=== PATIENT | male | born 1940 | race Caucasian/White ===

== ENCOUNTER → 2018-02-03 10:09 | Outpatient (CLI) | payer MEDICARE, SELFPAY ==
--- NOTE | 2018-02-03 10:17 | US_ITS ---
STUDY: ABDOMINAL ULTRASOUND REASON FOR EXAM: Male, 77 years old. Intermittent nausea, vomiting, cramping with generalized abdominal pain TECHNIQUE: Transabdominal ultrasound was performed with real-time and static dudley scale imaging. TECHNICAL QUALITY: Adequate. COMPARISON: None. FINDINGS: Liver: The liver measures 15.3 cm. There is normal echogenicity of the liver. The bile ducts are within normal limits. There is hepatic color flow. The direction of portal flow is hepatopetal. There is no demonstrated mass lesion. Portal vein measurement: Gallbladder: Normal distended gallbladder. The gallbladder wall measures 2.2 mm. There is a negative sonographic Hayes's sign. There is no pericholecystic fluid. There are no gallstones. Common Bile Duct (C.B.D.): The common bile duct measures 4.2 mm. Pancreas: There is normal echogenicity of the pancreas. There is no demonstrated pancreatic mass or cyst. Spleen: Normal size of the spleen. The spleen measures 9.8 cm. There are granulomas calcifications of the spleen. Right Kidney: Normal size of the right kidney. The right kidney measures 9.5 cm. Normal renal cortex. The right cortex measures 1.9 cm. There is no demonstrated renal mass or cyst. There is no right hydronephrosis. Left Kidney: Normal size of the left kidney. The left kidney measures 10.2 cm. Normal renal cortex. The left cortex measures 1.3 cm. There is no demonstrated renal mass or cyst. There is no left hydronephrosis. Aorta: Mild atherosclerosis. No evidence of aneurysm. I.V.C.: The IVC is patent. There is no ascites. US/Abdomen Complete IMPRESSION: Normal abdominal ultrasound examination. Electronically Signed: Palomo Marley MD at 16:21 EST , Service support ,
--- OUTSIDE RECORDS SUMMARY | 2018-03-22 00:53 | XMS RPT_ITS | Continuity of Care Document ---
:1940 Author Organization [facility] Address [address] [place] [address] Phone Care Team Providers Name Role Phone Fanta Gordon CNP Unavailable Jamar Cho Unavailable Dr. Artemio Juarez Unavailable Dr. Danial Smalls Unavailable Farzana Lu Unavailable Unavailable Renetta Jimenez LPN Unavailable Unavailable Unavailable Unavailable Problems Name Dates Details Afib (I48.91, 427.31) Comments: Continue Xarelto 20 mg and TOprol XL 25 mg Qd. Denies blood in stools black stools bleeding or bruising.Rate controlled.CArdiology :Irene galeas.Status postcardiac ablation in 2014. On Xarelto 20 mg at bedtime and metoprolol 25 mg once a day Status: Active B12 deficiency (E53.8, 266.2) Status: Active BMI 28.0-28.9,adult (Z68.28, V85.24) Status: Active BMI 29.0-29.9,adult (Z68.29, V85.25) Status: Active Colon polyps (K63.5, 211.3) Comments: colonscopy , Hyperplastci polyp, tubular adenomaGetting records, Status: Active COPD (chronic obstructive pulmonary disease) (J44.9, 496) Comments: Overnight pulse oximetry:Desaturation <88% was for 1:44.Pt does not need oxygen 2 litres.(Spoke to Dr Cho)Spirometry : Moderate airway obstructionWil do PFT and see Dr choSpirometry done on and 6min walk, normalsmoke one and a half packs per day for 30 years quit in 1989.Some SOB on stairs, cough, phlegm yellow thickDenies wheeze Status: Active Current nonsmoker (Z78.9, V49.89) Status: Active Depression (F32.9, 311) Comments: Zoloft 50 mg QdPHQ 9: 9( 03/23/16)denies sadness.Sleeping well ,wakes 2 times the middle of the night to go to the bathroom Status: Active Encounter for screening for lipid disorder (Z13.220, V77.91) Status: Active Encounter for screening for malignant neoplasm of prostate (Renamed from Screening for prostate cancer) (Z12.5, V76.44) Status: Active Encounter for screening for other suspected endocrine disorder (Z13.29, V77.99) Status: Active Family history of Alzheimer's disease (Z82.0, V17.2) Status: Active Family history of colon cancer (Z80.0, V16.0) Comments: Patient's brother of metastatis colorectal cancer at the age of 71. Was diagnosed with colon cancer at age 68.Colonoscopy according to John Sosa ([facility]) notes was in [address] Freddy siddiqi was recommended to get five-year colonoscopy.Colonscopy 07/01/15, hyperplastic polyp, tubular a adenoma, will get records to see when he needs repeat Status: Active GERD (gastroesophageal reflux disease) (K21.9, 530.81) Comments: continue Prevacid 30 mg once a day. 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) Comments: Right hip replaced in November 2014.Left hip replaced years ago currently stable Status: Active Hypercholesteremia (E78.00, 272.0) Status: Active Hypertension (I10, 401.9) Status: Active Insomnia (G47.00, 780.52) Comments: per office note from Dr Sosa Status: Active Need for Tdap vaccination (Renamed from Need for ivyaigtysf-unejapi-hrdvkkifi (Tdap) vaccine, adult/adolescent) (Z23, V06.1) Status: Active Nocturia (R35.1, 788.43) Comments: Patient has to wake up twice in the middle of the night to go to the bathroom.Denies frequency, urgency, hesitancy, burning Status: Active KALYAN on CPAP (G47.33, 327.23) Comments: Reviewed the rsults from [facility] on 07/05 Moderate KALYAN which was exacerbated to a severe degree during REM sleep.Respiratory events were associated with significant oxygen desaturations (jasmina 82%) on ro om air. Done at [facility].Non compliant with CPAP mask Status: Active Polycythemia (D75.1, 238.4) Comments: hmg on 06-21 is 16.9[address] note [address] Dr Sosa 07.05.2014 Hb 18.2, repeat 16.8(04/08) Status: Active Prediabetes (R73.03, 790.29) Comments: HBA1C 5.8Extensively counselled on Diet and exercuise Status: Active Skin cancer (C44.90, 173.90) Comments: h/o ?squamous cell cancer of scalp excised 2-3 years agoNeed follow up with derm.Refer to Danial stevens Status: Active URTI (acute upper respiratory infection) (J06.9, 465.9) Comments: Spirometry: moderate airway obstructionGet PFT7 days: scraty throat, PNDsevere laryngitis.Congestion , yellowish nasal draiangeCouigh yellow pjlegm.Wosre for the last few daysCough with blood in phlegm and nasla draiange. Status: Active Vertigo (R42, 780.4) Comments: stable, last used meclizine 1 year ago. Status: Active Vitamin D deficiency (E55.9, 268.9) Status: Active Well Male Exam (V70.0) (Renamed from Well Male physical medicare and non medicare) (Z00.00, V70.0) Comments: Reviewed all the records and labs from Dr. Ritesh Boyle(PCP) office 07/05/2014..PSA 0.9, TSH 0.656, vitamin D 48.3, vitamin B12 339.HBA1C:5.8(prediabetes)Lipid panel:LDL 100 UA negativeEKG NSR, no acu te ST t wave changees Mini-Mental status exam 30 x 30. Patient has deep UA living will. Currently drives. Denies falls but has rugs in the house and was counseled to avoid drugs to prevent falls. Co unseled extensively on diet and exercise to lose weight. Received pneumonia shot in 2014 while admitted in the hospita. Flu shot in 2014.We will do colonoscopy with Dr. juarez. Had shingles 10 years ago. Patient was advised to get shingles vaccine reveiwed with patient all annual medicare questions. immunizations reviewed. went through family social and medical history. Status: Active Medications Name Dates Details cpap Active chin strap, use a night Comments: [facility] -- not sure who manages it Lisinopril 30 MG Oral Tablet 1 (one) Tablet qd for 90 days Quantity: 90 {Tablet} Refills: 3 Ordered:07-Oct-2017 Fanta Gordon CNP, CNP Vivienne Start : 07-Oct-2017 Active Prevacid 30 MG Oral Capsule Delayed Release 1 (one) Capsule DR bid for 0 days Quantity: 180 {Capsule} Refills: 1 Ordered:01-Apr-2017 Fanta Gordon CNP, CNP Vivienne Start : 01-Apr-2017 Active Qvar 80 MCG/ACT Inhalation Aerosol Solution 1 (one) Aerosol Soln bid for 90 days Quantity: 3 {Each} Refills: 1 Ordered:13-Oct-2017 Fanta Gordon CNP, CNP Vivienne Start : 13-Oct-2017 Active Ramipril 5 MG Oral Capsule 1 (one) Capsule qd for 0 days Quantity: 30 {Capsule} Refills: 0 Ordered:27-Dec-2017 Fanta Gordon CNP, CNP Vivienne Start : 27-Dec-2017 End : 16-Sep-2015 Active Toprol XL 25 MG Oral Tablet Extended Release 24 Hour 1 (one) Tablet ER 24HR qd, hold for P<45 for 0 days Quantity: 90 {Tablet} Refills: 3 Ordered:01-Apr-2017 Fanta Gordon CNP, CNP Vivienne Start : 01-Apr-2017 Active Ventolin HFA 108 (90 Base) MCG/ACT Inhalation Aerosol Solution 1 (one) Aerosol Soln Aerosol Soln q4h prn for cough, sob, wheeze for 0 days Quantity: 3 {Each} Refills: 1 Ordered:16-Mar-2016 Hardeep Clark MD Start : 16-Mar-2016 Active Vitamin D3 2000 UNIT Oral Capsule 1 (one) Capsule daily for 0 days Quantity: 30 {Capsule} Refills: 0 Ordered:21-Oct-2017 Evan MORRISON, Fanta Hernandez CNP, Fanta Zayas Start : 21-Oct-2017 Active Xarelto 20 MG Oral Tablet 1 (one) Tablet qd with evening meal for 0 days Quantity: 90 {Tablet} Refills: 3 Ordered:01-Apr-2017 Evan MORRISON, Fanta Hernandez CNP, Fanta Zayas Start : 01-Apr-2017 Active Comments:on for about 1 year. Went in for hip surgery and discovered have AFib Zocor 40 MG Oral Tablet 1 (one) Tablet qhs for 0 days Quantity: 90 {Tablet} Refills: 3 Ordered:01-Apr-2017 vEan MORRISON, Fanta Hernandez CNP, Fanta Zayas Start : 01-Apr-2017 Active Zoloft 50 MG Oral Tablet 1 (one) Tablet qd for 30 days Quantity: 30 {Tablet} Refills: 3 Ordered:28-Nov-2017 Evan MORRISON, Fanta Hernandez CNP, Fanta Zayas Start : 28-Nov-2017 Active Altace 5 MG Oral Capsule 1 (one) Capsule qd for 90 days Quantity: 90 {Capsule} Refills: 0 Ordered:26-Sep-2017 Evan MORRISON, Fanta Hernandez CNP, Fanta Zayas Start : 26-Sep-2017 End : 25-Dec-2017 Inactive Comments:need appt for further refills (after this) Levaquin 500 MG Oral Tablet 1 (one) Tablet daily for 10 days Quantity: 10 {Tablet} Refills: 0 Ordered:23-Mar-2016 Hardeep Clark MD Start : 23-Mar-2016 End : 02-Apr-2016 Inactive Meclizine HCl 25 MG Oral Tablet 1 (one) Tablet Tablet tid prn for veritgo for 0 days Quantity: 10 {Tablet} Refills: 1 Ordered:14-Jun-2016 SlaRenetta zaidi LPN Start : 16-Mar-2016 End : 14-Jun-2016 Discontinued Mucinex 600 MG Oral Tablet Extended Release 12 Hour 1 (one) Tablet ER 12HR Tablet ER 12HR bid for 0 days Quantity: 30 {Tablet} Refills: 0 Ordered:23-Jul-2016 Slarb AIR MOVING TECHNICIANRussell Osbornea Start : 21-Jun-2016 End : 23-Jul-2016 Discontinued PredniSONE 10 MG (21) Oral Tablet Therapy Pack 1 (one) Tab Ther Pack UAD for 0 days Quantity: 1 {Package} Refills: 0 Ordered:21-Jun-2016 Slarb AIR MOVING TECHNICIANRussella Start : 14-Jun-2016 End : 21-Jun-2016 Discontinued Zithromax Z-Kd 250 MG Oral Tablet 1 (one) Tablet 2 tablets at once, then 1 daily for 9 days for 10 days Quantity: 11 {Tablet} Refills: 0 Ordered:21-Jun-2016 Slarb AIR MOVING TECHNICIANRussella Start : 14-Jun-2016 End : 21-Jun-2016 Discontinued Allergies and Adverse Reactions Name Dates Details No Allergy Information Available Status: Past Medical History Name Dates Details Abnormal CT of the chest (R93.8, 793.2) Comments: 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 , on [id number] started with some SOB after buying old buildings Status: Inactive as of 18-Oct-2017 Abnormal glucose (R73.09, 790.29) Status: Inactive as of 18-Oct-2017 BMI 28.0-28.9,adult (Z68.28, V85.24) Status: Inactive as of 01-Apr-2017 Bronchitis (J40, 490) Status: Inactive as of 01-Apr-2017 COPD with acute exacerbation (Renamed from Acute exacerbation of chronic obstructive airways disease) (J44.1, 491.21) Comments: PFT's Mild Obstructive Ventilatory Component, had blebs in past with penumothorax 1996spontaneuous pneumothorax 1996, with blebs chest tube Status: Inactive as of 02-Aug-2017 Cough (R05, 786.2) Comments: not improving with z pack, antibiotics, had prednisone, solumed, aerosol, chest xray showing bilateral perihilar thickening, chronic interstitial changes on xray, aerosols Seen again 06-15-16 with refe prabha Cho, July 23 unresolvedHad penicillin from dentist and another wide spectrum from dentist before he went to urgent carewent to urgent care around June 04 given z pack Status: Inactive as of 01-Apr-2017 Elevated WBC count (D72.829, 288.60) Comments: has been on steroid completed June 19 will repeat CBC Status: Inactive as of 18-Oct-2017 Flu-like symptoms (R68.89, 780.99) Status: Inactive as of 01-Apr-2017 History of cataract (Z86.69, V12.49) Status: Inactive as of 18-Oct-2017 Obesity (BMI 30.0-34.9) (E66.9, 278.00) Status: Inactive as of 18-Oct-2017 Sleep apnea (G47.30, 780.57) Comments: does not do cpap because of uncomfortable Status: Inactive as of 18-Oct-2017 Tooth abscess (K04.7, 522.5) Comments: consult dentist has been on xple antibiotics needs dental follow up Status: Inactive as of 18-Oct-2017 Wheeze (R06.2, 786.07) Status: Inactive as of 01-Apr-2017 Procedures Procedure Dates Details Appendectomy Completed Cardio Ablation Completed Cataract Sx - bilat Completed Colonoscopy Completed Comments: [facility] - Dr Hayes? Around 2013..think he said 10 years - maybe Dr uGo Hip replacement Completed Comments: L 2012 and R 11/2014 - approx dates Sleep Study Completed Comments: 07.26.2014 [facility] tel [id number] f [id number] Tonsilectomy Completed US thryoid wnl [facility] 10.31.12 Completed Date Value Details 23-Jun-2016 Emergency Department Summary Result: Comments: See Note; NOTES: [facility] Medical Records Department [address] [place] [address] Emergency Department Summary MR#: [id number] Acct: [id number] Name: SHARON AMOS Fe Rep #: [id number] : 1940 75 From: Tiffanie mEanuel MD PCP: Gwen Kendrick DO Status: DEP ER DATE OF SERVICE: 06/21/2016 CHIEF COMPLAINT: Shortness of breath. MCGHEE HISTORY: The patient is a 75-y ear-old male, sent in by PCP. He has had a one month history of shortness of breath, cough and congestion. He has been seen at the PCP office 3 times recently and treated with antibiotics and steroids a couple of times. He was seen in the office again today. Labs were sent. His D- dimer was elevated. Dr. Kendrick called and said that she was sending the patient in for a CT of the chest. The patient did arr bogdan in the ER during a very busy time. He was upset that he was not seen immediately and left to go eat dinner. He then returned later in the evening. He states he had some chest soreness from cough ear ly in the course of his illness, but none recently. He is also currently on Xarelto. He does state that his blood pressure was low in the office this morning. PHYSICAL EXAMINATION: VITAL SIGNS: Reveal blood pressure of 88/65, temperature 96, heart rate 78, respiratory rate 16, pulse oximetry 96% on room air. GENERAL: The patient is sitting upright in bed. He is in no acute distress, speaking in full sentences. HEART: Regular. LUNGS: Clear. ABDOMEN: Soft, nontender. HOSPITAL COURSE: At the time of my initial examination, his systolic blood pressure was 117; however, subsequent checks were down in t he low 90s. CT of the chest shows chronic interstitial changes and emphysematous changes, no evidence of PE. The patient is partially through a liter of IV fluid bolus. I have also instructed him to inc rease fluids over the next several days as well. Otherwise, he will be discharged home to follow up with his PCP. DISPOSITION: Discharge. IMPRESSION: 1. Chronic obstructive pulmonary disease. 2. Hypot ension. Tiffanie Emanuel MD T: NTS JOB: [id number] 06/23/16 0736 <Electronically signed by Tiffanie Emanuel MD> Date Tiffanie Emanuel MD Cosigner Signature (If Indicated): Date CC: Gwen Kendrick DO Date Dictated: 06/21/16 2351 Date Transcribed: 06/21/162350 Associate Artistic Director: Signed 21-Jun-2016 Discharge Instruction Result: Comments: See Note; NOTES: [facility] Medical Records Department [address] [place] [address] Discharge Instruction 06/21/16 2349 MR#: [id number] Acct: [id number] Name: Bhumi AMOS Rep #: [id number] : 1940 75 From: Tiffanie Emanuel MD PCP: Gwen Kendrick DO Status: REG ER ED Disposition - Plan for ED Patient: Disposition: Home or Assisted Living Chief Complaint: Lilian rtness of Breath Instructions: ED COPD Flare Referrals: Gwen Kendrick DO [Primary Care Provider] - 1 Week What to do if you have Problems For any increased pain, shortness of breath, bleeding, nausea or vomiting, chest pain, or any unexpected problems, contact your Primary Care Provider. Call [facility] ([phone]) or report to the closest Emergency Room. Call 911 if necessary. 06/21/16 2 350 <Electronically signed by Tiffanie Emanuel MD> Date Tiffanie Emanuel MD Cosigner Signature (If Indicated): Date CC: Gwen Kendrick DO -Jun-2016 CTA Chest W/WO Contrast Result: Comments: See Note; NOTES: [facility] Imaging Services [address] [place] [address] Verdana 4d CTA Chest W/WO Contrast MR#: [id number] Acct: [id number] Name: IRENE AMOS Rep #: [id number] : 1940 M 75 From: Lasha Blackmon MD PCP: Gwen Kendrick DO Status: REG ER Study: CTA Chest W/WO Contrast Date of Exam: 06/21/16 Exam# [id number] Ordering Dr: Tiffanie Emanuel MDDY: CTA CHEST REASON FOR EXAM: Male, 75 years old. Cough and elevated d-dimer RADIATION DOSAGE (If Supplied By Facility): CTDIvol = ( 17.78 ) mGy, DLP = ( 546.76 ) mGycm TECHNIQUE: The examination was performed with the intravenous administration of 100 ml of Isovue 370 contrast material. Post-processing of the angiographic images was performed, with multiplanar reformation and 3D reconstruction. Individualized dose optimization techniques were used for this CT. COMPARISON: Chest radiograph on June 14, 2016 FINDINGS: Normal enhancement of the main pulmon claire artery and right and left pulmonary arteries. Normal enhancement of the bilateral peripheral pulmonary arteries. There is no demonstrated pulmonary embolism. There are atherosclerotic changes invol ving the aorta without evidence for aneurysm There is no demonstrated aortic dissection. Heart is normal size. There is mild coronary artery calcification. Normal mediastinum. Normal hilar regions. Normal visualized trachea and bronchi. The lungs are well expanded. There is diffuse interstitial thickening with paraseptal and centrilobular emphysematous changes throughout both lungs most severe in the mid and upper lung zones. There is thickening of the central bronchial jimenez. There are no pulmonary infiltrates or nodules there is minor atelectasis within the dependent portion of the lungs.. N ormal pleura. Normal chest wall structures. Dorsal spine demonstrates moderate spondylosis. There is a moderate size hiatal hernia containing stomach and intra-abdominal fat. There is also a small per iesophageal noted measuring 6.3 mL of uncertain significance Normal visualized upper abdomen. CT/CTA Chest W/WO Contrast IMPRESSION: Chronic inte rstitial and emphysematous changes No evidence for pulmonary embolus Other findings as above Electronically Signed: Lasha Blackmon MD at 23:19 EDT , Service support [phone], CC: Gwen Kendrick DO; Tiffanie Emanuel MD Associate Artistic Director: Signed 14-Jun-2016 Chest PA and Lateral Result: Comments: See Note; NOTES: [facility] Imaging Services [address] [place], [place] [address] [address] Verdana 4d Chest PA and Lateral MR#: [id number] Acct: [id number] Name: IRENE AMOS Rep #: [id number] : 1940 M 75 From: Lasha Blackmon MD PCP: Fanta Gordon Status: REG CLI Study: Chest PA and Lateral Date of Exam: 06/14/16 Exam# [id number] Ordering Dr: Fanta Gordon STUDY: X-RAY CH EST REASON FOR EXAM: Male, 75 years old. COPD TECHNIQUE: COPD COMPARISON: None. FINDINGS: Nonspecific bilateral perihilar interstitial thickening is seen. There is no focal infiltrate. There is no demonstrated pleural abnormality. Normal size heart. Normal mediastinum and arti. Normal visualized pulmonary arteries. Normal visualized aortic arch and descending thoracic aorta. Dorsal spine demonstrates mild spondylosis Normal visualized ribs, clavicles, and shoulders. There is no demonstrated abnormality of the visualized soft tissue structures of the upper abdomen. RAD/Chest PA and Lateral IMPRESSION: Chronic interstitial changes. No acute disease Electronically Signed: Lasha Blackmon MD 4 at 19:10 EDT , Service support , CC: Fanta Gordon Associate Artistic Director: Signed 03-Nov-2015 12 Lead Electrocardiogram Result: Comments: See Note; NOTES: [facility] Cardiovascular Services [address] [place] [address] 12 Lead EKG 10/29/15 1556 MR#: [id number] Acct: [id number] Name: IRENE AMOS Prabha ep #: [id number] : 1940 75 From: Flavio Miller MD Attending Dr: Status: DEP Ordering Dr: Venu Padgett MD Date: 10/29/15 Location: ED Sex: M C Admitted: Test Reason : Blood Pressure : * / mmHG Vent. Rate : 090 BPM Atrial Rate : 090 BPM P-R Int : 122 ms QRS Dur : 086 ms QT Int : 358 ms P-R-T Axes : 038 060 052 degrees QTc Int : 437 ms Sinus rhythm with Premature supraventricular c omplexes Otherwise normal ECG Confirmed by FLAVIO MILLER ([id number]), photograph editor CRISTY GILMORE ([id number]) on 11/03/2015 2:00:06 PM Referred By: DASH Confirmed By:FLAVIO MILLER 11/03/15 1400 Date ___ Flavio Miller MD CC: Hardeep Clark Date Dictated: 10/29/151555 Date Transcribed: 10/29/151555 Associate Artistic Director: Signed 31-Oct-2015 Emergency Department Summary Result: Comments: See Note; NOTES: [facility] Medical Records Department [address] [place] [address] Emergency Department Summary MR#: [id number] Acct: [id number] Name: CHEYANNE AMOS AM Rep #: [id number] : 1940 75 From: Venu Padgett MD PCP: Hardeep Clark Status: DEP ER DATE OF SERVICE: 10/29/2015 METHOD OF ARRIVAL: Private car. CHIEF COMPLAINT: Palpitations and anxio us. HISTORY OF PRESENT ILLNESS: A 75-year-old male, patient of Dr. Clark as well as Dr. Hoyos, who had an ablation for atrial fibrillation at [facility] 13 months ago. He states 1 time a week h e has to call in for a rhythm check and usually his pulse is 60-75, today it was 95. The patient reports that he feels nervous and anxious and his blood pressure is elevated. The patient denies any ch est pain or difficulty breathing. No fever or chills. Does report that he has bug bites on both legs that have been present for 2 days. PHYSICAL EXAMINATION: GENERAL: Reveals alert male, in no acute di stress. VITAL SIGNS: Temperature 96.1, blood pressure 119/75, heart rate 91, respiratory rate 16, pulse oximetry 96% on room air. He is not hypoxic. CARDIOVASCULAR: Significant physical exam findings in clude the cardiovascular exam, which shows regular rate and rhythm with no murmur. RESPIRATORY: Clear to auscultation bilaterally. ABDOMEN: Benign. Soft, nontender and nondistended with normal bowel denita nds. SKIN: Shows multiple insect bites to his lower extremities bilaterally with no evidence of infection. The remainder of the physical exam is unremarkable. Please see T-sheet for details. TEST RESUL TS: The patient had an EKG that is sinus at 90 with a single PAC and no acute changes. EMERGENCY DEPARTMENT COURSE: The patient did not want blood work or further evaluation undertaken. He is reassured that he is still in sinus rhythm. He will be discharged with instructions to follow up with Dr. Hoyos for further evaluation. He will be placed on Zyrtec and Kenalog ointment for his bug bites. DIS POSITION: Home in stable condition. IMPRESSION: 1. PACs. 2. Insect bites to legs. MD Barbie Bustillos C: Irene Hoyos Eduardo T: NTS JOB: [id number] 10/31/15802 <Electronically si gned by Venu Padgett MD> Date Venu Padgett MD Cosigner Signature (If Indicated): Date CC: Hardeep Clark; IRENE HOYOS Date Dictated: 10/29/152321 Date Transcribed: 10/29/152321 Associate Artistic Director: Signed 29-Oct-2015 Discharge Instruction Result: Comments: See Note; NOTES: [facility] Medical Records Department [address] [place] [address] Discharge Instruction 10/29/15 1607 MR#: [id number] Acct: [id number] Name: IRENE AMOS Rep #: [id number] : 1940 75 From: Venu Padgett MD PCP: Hardeep Clark Status: DEP ER ED Disposition - Plan for ED Patient: Chief Complaint: Chest Other Instructions: ED Palpitatio ns, ED Insect Bite Prescriptions: Cetirizine HCl [Zyrtec] 10 mg PO DAILY #14 tablet Triamcinolone Ointment [Kenalog Ointment] 1 applic TOPICAL BID #1 tube Referrals: Hardeep Clark [Primary Care Provider] - 1 Week if not improving Irene Hoyos DO [STAFF PHYSICIAN] - What to do if you have Problems For any increased pain, shortness of breath, bleeding, nausea or vomiting, chest pain, or any unexp ected problems, contact your doctor. Call [facility] ([phone]) or report to the closest Emergency Room. Call 911 if necessary. 10/29/15 4151 <Electronically signed by Venu Padgett MD> Date Venu Padgett MD Cosigner Signature (If Indicated): Date CC: Hardeep Clark 16-Apr-2015 Pulmonary Function Test Result: Comments: See Note; NOTES: [facility] Pulmonary Services/Neurology [address] [place] [place] [address] Pulmonary Function Test (Comp) MR#: [id number] Acct: [id number] Ned e: IRENE AMOS Rep #: [id number] : 1940 74 From: Jamar Cho MD Referring Dr: Hardeep Clark Status: REG CLI Ordering Dr: Hardeep Clark Date: 04/04/15 Location: [facility] Sex: M C 6 [id number] <Electronically signed by Jamar Cho MD> Date Jamar Cho MD CC: Hardeep Clark; Jamar Cho MD Date Dictated: 0 04/09/15 Date Transcribed: 04/09/15 1433 Associate Artistic Director: ZHENG Signed 09-Apr-2015 ELECTROCARDIOGRAM, COMPLETE (ECG) ([id number]) Result: [MEASUREMENTS ANALYSIS] Date of Test: 04/09/2015 10:34:22; Heart Rate: 82; MI Interval: 128; QRS: 95; QT Interval: 364; Corrected QT Interval (QTc): 402; P Wave [place]: 90; QRS Wave [place]: 59; T Wave [place]: 58; Blood Pressure: 148/86 [ECG DIAGNOSTIC STATEMENTS] Date of Test: 04/09/2015 10:34:22; Summary: Sinus Rhythm WITHIN NORMAL LIMITS Family History Unknown Family Member Name Dates Details Brother 1 Comments: Colon Ca Status: Active Daughter 1961, Daughter 1963(HAs another daughter from his 2nd ) Status: Active Father Comments: cardiac, HTN Status: Active Mother Comments: Alzheimers Status: Active Social History Name Dates Details Caffeine Use Comments: 2/day Status: Active Drug Use Status: Active Exercise History Comments: 3x weekly, 20 min duration Status: Active Non Drinker/No Alcohol Use Status: Active Non Smoker/No Tobacco Use Comments: quit smoking in 1989 Status: Active Vital Signs Date Test Result Details 61-Tye-054449:50 Temperature 97 f Comments: Method: Temporal Pulse 67 /min Comments: Pattern: Regular Respiration Rate 18 /min Comments: Pattern: Unlabored O2 SAT 99 % Comments: Room air BP Systolic 128 mm[Hg] Comments: Patient Position: Sitting; Cuff Location: Left Arm; Cuff Size: Standard BP Diastolic 86 mm[Hg] Comments: Patient Position: Sitting; Cuff Location: Left Arm; Cuff Size: Standard Weight 191.125 lb Height 68 in Body Mass Index Calculated 29.06 kg/m2 Body Surface Area Calculated 2.01 m2 89-Lsc-35174:39 Temperature 97 f Comments: Method: Temporal Pulse 66 /min Comments: Pattern: Regular Respiration Rate 18 /min Comments: Pattern: Unlabored O2 SAT 97 % Comments: Room air BP Systolic 124 mm[Hg] Comments: Patient Position: Sitting; Cuff Location: Left Arm; Cuff Size: Standard BP Diastolic 84 mm[Hg] Comments: Patient Position: Sitting; Cuff Location: Left Arm; Cuff Size: Standard Weight 191.5 lb Height 68 in Body Mass Index Calculated 29.12 kg/m2 Body Surface Area Calculated 2.01 m2 52-Gtp-243832:20 Comments: after - sly scale 13 Pulse 68 /min Comments: Pattern: Regular Respiration Rate 17 /min Comments: Pattern: Unlabored O2 SAT 98 % Comments: Room air BP Systolic 138 mm[Hg] Comments: Patient Position: Sitting; Cuff Location: Left Arm; Cuff Size: Standard BP Diastolic 82 mm[Hg] Comments: Patient Position: Sitting; Cuff Location: Left Arm; Cuff Size: Standard Weight 192.5 lb Height 68 in Body Mass Index Calculated 29.27 kg/m2 Body Surface Area Calculated 2.01 m2 :18 Comments: before -- sly scale 9 Pulse 64 /min Comments: Pattern: Regular Respiration Rate 16 /min Comments: Pattern: Unlabored O2 SAT 98 % Comments: Room air BP Systolic 130 mm[Hg] Comments: Patient Position: Sitting; Cuff Location: Left Arm; Cuff Size: Standard BP Diastolic 84 mm[Hg] Comments: Patient Position: Sitting; Cuff Location: Left Arm; Cuff Size: Standard Weight 192.5 lb Height 68 in Body Mass Index Calculated 29.27 kg/m2 Body Surface Area Calculated 2.01 m2 :38 Temperature 97.5 f Pulse 68 /min Comments: Pattern: Regular Respiration Rate 16 /min Comments: Pattern: Unlabored O2 SAT 98 % Comments: Room air BP Systolic 114 mm[Hg] Comments: Patient Position: Sitting; Cuff Location: Left Arm; Cuff Size: Standard BP Diastolic 72 mm[Hg] Comments: Patient Position: Sitting; Cuff Location: Left Arm; Cuff Size: Standard Weight 192.5 lb Height 68 in Body Mass Index Calculated 29.27 kg/m2 Body Surface Area Calculated 2.01 m2 :51 Temperature 97.8 f Pulse 74 /min Comments: Pattern: Regular Respiration Rate 16 /min Comments: Pattern: Unlabored O2 SAT 95 % Comments: Room air BP Systolic 122 mm[Hg] Comments: Patient Position: Sitting; Cuff Location: Left Arm; Cuff Size: Standard BP Diastolic 80 mm[Hg] Comments: Patient Position: Sitting; Cuff Location: Left Arm; Cuff Size: Standard Weight 18.5 lb Height 68 in Body Mass Index Calculated 2.81 kg/m2 Body Surface Area Calculated 0.74 m2 :45 Temperature 98.8 f Comments: Method: Tympanic Pulse 86 /min Comments: Pattern: Regular Respiration Rate 18 /min Comments: Pattern: Unlabored O2 SAT 97 % Comments: Room air BP Systolic 112 mm[Hg] Comments: Patient Position: Sitting; Cuff Location: Left Arm; Cuff Size: Standard BP Diastolic 76 mm[Hg] Comments: Patient Position: Sitting; Cuff Location: Left Arm; Cuff Size: Standard Weight 184.25 lb Height 68 in Body Mass Index Calculated 28.01 kg/m2 Body Surface Area Calculated 1.97 m2 :19 Temperature 99.1 f Pulse 84 /min Comments: Pattern: Regular Respiration Rate 17 /min Comments: Pattern: Unlabored O2 SAT 97 % Comments: Room air BP Systolic 98 mm[Hg] Comments: Patient Position: Sitting; Cuff Location: Left Arm; Cuff Size: Standard BP Diastolic 64 mm[Hg] Comments: Patient Position: Sitting; Cuff Location: Left Arm; Cuff Size: Standard Weight 184.25 lb Height 68 in Body Mass Index Calculated 28.01 kg/m2 Body Surface Area Calculated 1.97 m2 :07 Temperature 97.3 f Pulse 74 /min Comments: Pattern: Regular Respiration Rate 18 /min Comments: Pattern: Unlabored O2 SAT 96 % Comments: Room air BP Systolic 124 mm[Hg] Comments: Patient Position: Sitting; Cuff Location: Left Arm; Cuff Size: Standard BP Diastolic 82 mm[Hg] Comments: Patient Position: Sitting; Cuff Location: Left Arm; Cuff Size: Standard Weight 186.375 lb Height 68 in Body Mass Index Calculated 28.34 kg/m2 Body Surface Area Calculated 1.98 m2 :06 Temperature 98 f Pulse 75 /min Comments: Pattern: Regular Respiration Rate 16 /min Comments: Pattern: Unlabored O2 SAT 96 % Comments: Room air BP Systolic 134 mm[Hg] Comments: Patient Position: Sitting; Cuff Location: Left Arm; Cuff Size: Standard BP Diastolic 86 mm[Hg] Comments: Patient Position: Sitting; Cuff Location: Left Arm; Cuff Size: Standard Weight 186.375 lb Height 68 in Body Mass Index Calculated 28.34 kg/m2 Body Surface Area Calculated 1.98 m2 :16 Temperature 97.8 f Comments: Method: Temporal Pulse 79 /min Comments: Pattern: Regular Respiration Rate 17 /min Comments: Pattern: Unlabored O2 SAT 97 % Comments: Room air BP Systolic 124 mm[Hg] Comments: Patient Position: Sitting; Cuff Location: Left Arm; Cuff Size: Standard BP Diastolic 82 mm[Hg] Comments: Patient Position: Sitting; Cuff Location: Left Arm; Cuff Size: Standard Weight 189 lb Height 68 in Body Mass Index Calculated 28.74 kg/m2 Body Surface Area Calculated 2 m2 :56 Comments: recheck BP Systolic 122 mm[Hg] Comments: Patient Position: Sitting; Cuff Location: Left Arm; Cuff Size: Standard BP Diastolic 82 mm[Hg] Comments: Patient Position: Sitting; Cuff Location: Left Arm; Cuff Size: Standard :56 Temperature 97.4 f Comments: Method: Temporal Pulse 80 /min Comments: Pattern: Regular Respiration Rate 17 /min Comments: Pattern: Unlabored O2 SAT 97 % Comments: Room air BP Systolic 148 mm[Hg] Comments: Patient Position: Sitting; Cuff Location: Left Arm; Cuff Size: Standard BP Diastolic 86 mm[Hg] Comments: Patient Position: Sitting; Cuff Location: Left Arm; Cuff Size: Standard Weight 195.6 lb Height 68 in Body Mass Index Calculated 29.74 kg/m2 Body Surface Area Calculated 2.02 m2 :20 Temperature 97.2 f Comments: Method: Temporal Pulse 72 /min Comments: Pattern: Regular Respiration Rate 16 /min Comments: Pattern: Unlabored O2 SAT 97 % Comments: Room air BP Systolic 128 mm[Hg] Comments: Patient Position: Sitting; Cuff Location: Left Arm; Cuff Size: Standard BP Diastolic 74 mm[Hg] Comments: Patient Position: Sitting; Cuff Location: Left Arm; Cuff Size: Standard Weight 195 lb Height 68 in Body Mass Index Calculated 29.65 kg/m2 Body Surface Area Calculated 2.02 m2 Results Date Description Value Details 34-Bhg-833825:16 VITAMIN B12 AND FOLATES Comments: PATIENT WAS FASTINGPERFORMED BY: [employer]70 [facility] [id number] ([id number]) Folate (Folic Acid), Serum 10.5 ng/mL (Normal) Comments: A serum folate concentration of less than 3.1 ng/mL isconsidered to represent clinical deficiency. Vitamin B12 342 pg/mL (Normal) Range: 232-1245 30-Sld-720865:16 CALCIFEDIOL (74911) Comments: PATIENT WAS FASTINGPERFORMED BY: [employer]70 [facility] [id number] Vitamin D, 25-Hydroxy 29.3 ng/mL (Abnormal) Range: 30.0-100.0 Comments: Vitamin D deficiency has been defined by the [place] ofMedicine and an Endocrine Society practice guideline as alevel of serum 25-OH vitamin D less than 20 ng/mL (1,2).The Endocrine Society went on to further define vitamin Dinsufficiency as a level between 21 and 29 ng/mL (2).1. IOM ([place] of Medicine). 2010. Dietary reference intakes for calcium and D. [place]: The National Academies Press.2. Ramiro MF, Chelle NELSON, Karen CHASE, et al. Evaluation, treatment, and prevention of vitamin D deficiency: an Endocrine Society clinical practice guideline. JCEM. 2010; 96(7):1911-30. 28-Gym-201555:16 Metabolic Panel, Comprehensive Comments: PATIENT WAS FASTINGPERFORMED BY: [facility]CoSaint [facility] Hospital at SussexZmuxgh8410 [facility] [id number] (06033) ALT (SGPT) 29 [iU]/L (Normal) Range: 0-44 AST (SGOT) 21 [iU]/L (Normal) Range: 0-40 Alkaline Phosphatase 60 [iU]/L (Normal) Range: 39-117 Bilirubin, Total 0.5 mg/dL (Normal) Range: 0.0-1.2 A/G Ratio 1.7 (Normal) Range: 1.2-2.2 Globulin, Total 2.5 g/dL (Normal) Range: 1.5-4.5 Albumin 4.3 g/dL (Normal) Range: 3.5-4.8 Protein, Total 6.8 g/dL (Normal) Range: 6.0-8.5 Calcium 9.1 mg/dL (Normal) Range: 8.6-10.2 Carbon Dioxide, Total 23 mmol/L (Normal) Range: 20-29 Chloride 102 mmol/L (Normal) Range: 96-106 Potassium 4.7 mmol/L (Normal) Range: 3.5-5.2 Sodium 141 mmol/L (Normal) Range: 134-144 BUN/Creatinine Ratio 18 (Normal) Range: 10-24 eGFR If Africn Am 88 mL/min/1.73 (Normal) eGFR If NonAfricn Am 76 mL/min/1.73 (Normal) Creatinine 0.95 mg/dL (Normal) Range: 0.76-1.27 BUN 17 mg/dL (Normal) Range: 8-27 Glucose 86 mg/dL (Normal) Range: 65-99 29-Jnz-692687:16 TSH (THYROID STIMULATING Comments: PATIENT WAS FASTINGPERFORMED BY: [employer] Sdyxpj9978 [facility] [id number] HORMONE) (39988) TSH 0.661 {uIU/mL} (Normal) Range: 0.450-4.500 25-Aza-168769:16 LIPID PANEL (59443) Comments: PATIENT WAS FASTINGPERFORMED BY: TuxeboSaint Clare's Hospital at SussexXfqkot9134 [facility] [id number] LDL/HDL Ratio 2.2 {ratio} (Normal) Range: 0.0-3.6 Comments: LDL/HDL Ratio Men Women 1/2 Avg.Risk 1.0 1.5 Av g.Risk 3.6 3.2 2X Avg.Risk 6.2 5.0 3X Avg.Risk 8.0 6.1 LDL Cholesterol Calc 81 mg/dL (Normal) Range: 0-99 VLDL Cholesterol Neville 31 mg/dL (Normal) Range: 5-40 HDL Cholesterol 37 mg/dL (Abnormal) Triglycerides 155 mg/dL (Abnormal) Range: 0-149 Cholesterol, Total 149 mg/dL (Normal) Range: 100-199 3-Nfu-660139:28 PSA (PROSTATE SPECIFIC Comments: PATIENT NOT FASTINGPERFORMED BY: TuxeboSaint [facility]'s Hospital at SussexUtgrad3131 [facility] [id number] ANTIGEN) (V76.44) Prostate Specific Ag, 1.2 ng/mL (Normal) Range: 0.0-4.0 Serum Comments: Brissa ECLIA methodology. .According to the [place] U[employer], Serum PSA shoulddecrease and remain at undetectable levels after radicalprostatectomy. The AUA defines biochemical recurrence as an initialPSA value 0.2 ng/mL or greater followed by a subsequent confirmatoryPSA value 0.2 ng/mL or greater.Values obtained with d ifferent assay methods or kits cannot be usedinterchangeably. Results cannot be interpreted as absolute evidenceof the presence or absence of malignant disease. 1-Pad-785683:01 MICROALBUMIN: CREATININE RATIO Comments: PATIENT WAS FASTINGPERFORMED BY: [facility] TherapeuticsUniversity [facility] Health6370 [facility] [id number] (31779) AND (98685) Alb/Creat Ratio <8.0 {mg/g_creat} (Normal) Range: 0.0-30.0 Albumin, Urine <3.0 ug/mL (Normal) Creatinine, Urine 37.5 mg/dL (Normal) :01 URINALYSIS (25108) Comments: PATIENT WAS FASTINGPERFORMED BY: [facility]rapeuticsUniversity [facility] Health6370 [facility] [id number] Microscopic Examination MICNIP (Normal) Comments: Microscopic not indicated and not performed. Nitrite, Urine Negative (Normal) Urobilinogen,Semi-Qn 0.2 mg/dL (Normal) Range: 0.2-1.0 Bilirubin Negative (Normal) Occult Blood Negative (Normal) Ketones Negative (Normal) Glucose Negative (Normal) Protein Negative (Normal) WBC Esterase Negative (Normal) Appearance Clear (Normal) Urine-Color Yellow (Normal) pH 6.0 (Normal) Range: 5.0-7.5 Specific [place] 1.011 (Normal) Range: 1.005-1.030 :01 CBC, Platelets & Auto Diff Comments: PATIENT WAS FASTINGPERFORMED BY: [facility]6370 [facility] [id number] (87987) Immature Grans (Abs) 0.0 {x10E3/uL} (Normal) Range: 0.0-0.1 Immature Granulocytes 0 % (Normal) Baso (Absolute) 0.0 {x10E3/uL} (Normal) Range: 0.0-0.2 Eos (Absolute) 0.1 {x10E3/uL} (Normal) Range: 0.0-0.4 Monocytes(Absolute) 0.7 {x10E3/uL} (Normal) Range: 0.1-0.9 Lymphs (Absolute) 1.9 {x10E3/uL} (Normal) Range: 0.7-3.1 Neutrophils (Absolute) 4.0 {x10E3/uL} (Normal) Range: 1.4-7.0 Basos 0 % (Normal) Eos 2 % (Normal) Monocytes 10 % (Normal) Lymphs 28 % (Normal) Neutrophils 60 % (Normal) Platelets 160 {x10E3/uL} (Normal) Range: 150-379 RDW 13.9 % (Normal) Range: 12.3-15.4 MCHC 34.6 g/dL (Normal) Range: 31.5-35.7 MCH 31.7 pg (Normal) Range: 26.6-33.0 MCV 92 fL (Normal) Range: 79-97 Hematocrit 50.3 % (Normal) Range: 37.5-51.0 Hemoglobin 17.4 g/dL (Normal) Range: 13.0-17.7 RBC 5.49 {x10E6/uL} (Normal) Range: 4.14-5.80 WBC 6.7 {x10E3/uL} (Normal) Range: 3.4-10.8 9-Eeu-232187:01 Metabolic Panel, Comprehensive Comments: PATIENT WAS FASTINGPERFORMED BY: LabCoSaint [facility] Hospital at SussexEcgvyv8371 [facility] [id number] (69829) ALT (SGPT) 34 [iU]/L (Normal) Range: 0-44 AST (SGOT) 29 [iU]/L (Normal) Range: 0-40 Alkaline Phosphatase, S 69 [iU]/L (Normal) Range: 39-117 Bilirubin, Total 0.6 mg/dL (Normal) Range: 0.0-1.2 A/G Ratio 1.5 (Normal) Range: 1.2-2.2 Globulin, Total 3.1 g/dL (Normal) Range: 1.5-4.5 Albumin, Serum 4.7 g/dL (Normal) Range: 3.5-4.8 Protein, Total, Serum 7.8 g/dL (Normal) Range: 6.0-8.5 Calcium, Serum 10.1 mg/dL (Normal) Range: 8.6-10.2 Carbon Dioxide, Total 25 mmol/L (Normal) Range: 18-29 Chloride, Serum 100 mmol/L (Normal) Range: 96-106 Potassium, Serum 5.1 mmol/L (Normal) Range: 3.5-5.2 Sodium, Serum 141 mmol/L (Normal) Range: 134-144 BUN/Creatinine Ratio 18 (Normal) Range: 10-24 eGFR If Africn Am 84 mL/min/1.73 (Normal) eGFR If NonAfricn Am 72 mL/min/1.73 (Normal) Creatinine, Serum 1.00 mg/dL (Normal) Range: 0.76-1.27 BUN 18 mg/dL (Normal) Range: 8-27 Glucose, Serum 82 mg/dL (Normal) Range: 65-99 0-Ytk-858707:21 HgA1C , Office (64952) Comments: 5.4 HgA1C , Office 5.4 % (Normal) Range: 4.6 - 7.1 6-Tqy-784273:01 LIPID PANEL (33136) Comments: PATIENT WAS FASTINGPERFORMED BY: [facility]Angel [facility] [id number] LDL/HDL Ratio 2.4 {ratio_units} (Normal) Range: 0.0-3.6 Comments: LDL/HDL Ratio Men Women 1/2 Avg.Risk 1.0 1.5 Av g.Risk 3.6 3.2 2X Avg.Risk 6.2 5.0 3X Avg.Risk 8.0 6.1 LDL Cholesterol Calc 102 mg/dL (Abnormal) Range: 0-99 VLDL Cholesterol Neville 22 mg/dL (Normal) Range: 5-40 HDL Cholesterol 42 mg/dL (Normal) Triglycerides 111 mg/dL (Normal) Range: 0-149 Cholesterol, Total 166 mg/dL (Normal) Range: 100-199 1-Toi-558415:20 Blood Glucose , Office (18136) Blood Glucose , Office 111 (Normal) 66-Egw-021380:14 CBC, Platelets & Auto Diff Comments: repeat July 05; PATIENT NOT FASTINGPERFORMED BY: [employer]70 [facility] [id number] (63435) Immature Grans (Abs) 0.0 {x10E3/uL} (Normal) Range: 0.0-0.1 Immature Granulocytes 0 % (Normal) Baso (Absolute) 0.0 {x10E3/uL} (Normal) Range: 0.0-0.2 Eos (Absolute) 0.2 {x10E3/uL} (Normal) Range: 0.0-0.4 Monocytes(Absolute) 0.7 {x10E3/uL} (Normal) Range: 0.1-0.9 Lymphs (Absolute) 2.0 {x10E3/uL} (Normal) Range: 0.7-3.1 Neutrophils (Absolute) 3.0 {x10E3/uL} (Normal) Range: 1.4-7.0 Basos 1 % (Normal) Eos 4 % (Normal) Monocytes 11 % (Normal) Lymphs 34 % (Normal) Neutrophils 50 % (Normal) Platelets 162 {x10E3/uL} (Normal) Range: 150-379 RDW 13.8 % (Normal) Range: 12.3-15.4 MCHC 33.7 g/dL (Normal) Range: 31.5-35.7 MCH 31.6 pg (Normal) Range: 26.6-33.0 MCV 94 fL (Normal) Range: 79-97 Hematocrit 46.0 % (Normal) Range: 37.5-51.0 Hemoglobin 15.5 g/dL (Normal) Range: 12.6-17.7 RBC 4.91 {x10E6/uL} (Normal) Range: 4.14-5.80 WBC 5.9 {x10E3/uL} (Normal) Range: 3.4-10.8 3-Bww-025836:32 BNP,B-Type NATRIURETIC PEPTIDE Comments: [address] [place], [place], [id number] B-TYPE BIRD PEP 8.5 pg/mL (Normal) Range: 0-100 4-Akw-497125:32 CBC W/Diff, Automated Comments: [address] [place], [place], [id number] Absolute Lymph 2.84 {X10_3/ul} (Normal) Range: 0.83-4.51 Absolute Neut 7.6 {X10_3/uL} (Normal) Range: 2.0-7.7 IM GRAN % 1.100 % (Abnormal) Range: 0.0-0.9 Comments: IG% - Immature Granulocytes (promyelocytes, myelocytes andmetamyelocytes) > 1% indicates that a LEFT SHIFT is Present. BASO% 0.2 % (Normal) Range: 0-1 EO% 1.1 % (Normal) Range: 0-5 MONO% 8.8 % (Normal) Range: 0-10 LY% 24.1 % (Normal) Range: 19-41 NEUT% 64.7 % (Normal) Range: 47-70 MPV 10.5 fL (Normal) Range: 6.2-12.0 PLT 223 K/mm3 (Normal) Range: 150-450 RDW SD 44.2 fL (Abnormal) Range: 35.1-43.9 RDW CV 13.4 % (Normal) Range: 11.6-14.6 MCHC 33.7 {g/gl} (Normal) Range: 32-36 MCH 31.2 pg (Normal) Range: 27.0-32.0 MCV 92.4 fL (Normal) Range: 80-94 HCT 50.1 % (Normal) Range: 40-54 HGB 16.9 g/dL (Abnormal) Range: 13.0-16.5 RBC 5.42 {M/mm3} (Normal) Range: 4.6-6.2 WBC 11.8 K/mm3 (Abnormal) Range: 4.4-11.0 9-Gqv-981652:32 Comprehensive Metabolic Profil Comments: [facility] [address] Funk[place], [place], [id number] GAP 7 (Normal) Range: 5-15 CO2 30.0 mmol/L (Normal) Range: 21.0-32.0 CL 100 mmol/L (Normal) Range: 98-107 K 4.2 mmol/L (Normal) Range: 3.5-5.1 NA 137 mmol/L (Normal) Range: 136-145 T BILI 0.70 mg/dL (Normal) Range: 0.20-1.00 ALT 67 U/L (Normal) Range: 12-78 ALK P 66 U/L (Normal) Range: 45-117 AST 21 U/L (Normal) Range: 15-37 CA 9.1 mg/dL (Normal) Range: 8.5-10.1 A/G 0.9 {RATIO} (Normal) Range: 0.9-2.4 GLOB 4.0 g/dL (Abnormal) Range: 2.3-3.5 ALB 3.5 g/dL (Normal) Range: 3.4-5.0 T PROT 7.5 g/dL (Normal) Range: 6.4-8.2 BUN/CRE 19.2 {RATIO} (Normal) Range: 10-20 EST GFR - AA 76 mL/min (Normal) Comments: GFR Calc EST GFR 62 mL/min (Normal) Comments: Non- GFR Calc CREAT,SERUM 1.20 mg/dL (Normal) Range: 0.70-1.30 Comments: The validity of the calculated GFR AND GFRAA in patients over70 years has not been determined. Clinical correlation isessential. BUN 23 mg/dL (Abnormal) Range: 7-18 GLU 84 mg/dL (Normal) Range: 70-110 9-Icl-773511:32 D-Dimer Quantitative (DVT/PE) Comments: [facility] [address] [place], [address] D-DIMER QUANT 1.10 {FEU/ug/m} (Abnormal) Range: 0.27-0.49 Comments: D-Dimer ELEVATED (>0.49): Additional studies and clinicalassessments are indicated to conclude diagnosis of:Deep Vein Thrombosis (DVT) or Pulmonary Embolism (PE)CRITICAL VALUE VERIFIED. CALLED TO DR KENDRICK06/21/16 1908 Katelyn Holland.RESULTS READ BACK BY SAME . :40 Sputum Culture (04613) Comments: PATIENT NOT FASTINGPERFORMED BY: LabCoSaint [facility] Hospital at SussexWbeilo3409 [facility] [id number] Information: SRC:SP Result 1 RRF (Normal) Comments: Routine respiratory nelly Lower Respiratory Culture Final report (Normal) 74-Hdv-737245:15 Rapid Flu (09951 x 2) Comments: neg Influenza A Ag neg a and b (Normal) :17 HgA1C , Office (92484) HgA1C , Office 5.6 % (Normal) Range: 4.6 - 7.1 :17 Blood Glucose , Office (61194) Blood Glucose , Office 108 (Normal) 10-Mcp-396791:00 COLON BIOPSY (CHOOSE See Note (Normal) Comments: [facility] [address] [place], [address] SITE) Comments: Patient: DANDREIRENE : 1940 (74/M) Acct Num: [id number] Phys: Artemio Juarez Unit Num: [id number] Loc: LABSPEC Specimen: [id number] Received: 07/01/151616 Spec Type: COLON BX TISSUES TISSUES: GROSS DESCRIPTION A - Received is one container labeled with the patient name and designated biopsy polyp right colon. The specimen consists of two irregu lar fragments oflight [place] soft tissue that in aggregate measure 0.5 x 0.2 x 0.1 cm. The specimenis totally submitted in one cassette. B - Received is one container labeled with the patient name and d esignated polyp sigmoid. The specimen consists of one piece of [place]-pink polyp measuring0.4 x 0.3 x 0.2 cm. The specimen is totally submitted in one cassette. / SJ:alphonso 07/02/15 TC:1 CPT:93735 x2 HEADER OPERATION: Colonoscopy with biopsy PRE-OP DIAGNOSIS: High risk screening / polyp TISSUE SUBMITTED: A - Polyp right colon, rule out adenoma, B - Sigmoid polyp, rule out adenoma MICROSCO PIC DESCRIPTION Slides are reviewed. MICROSCOPIC DIAGNOSIS A. Polyp, right colon, biopsy: Fragments of hyperplastic polyp. B. Sigmoid polyp, biopsy: Tubular adenoma. SJ:alphonso 02/05 Signed Kelvin Boland 07/03/15 <signature on file> 07-Iyr-895544:18 Urinalysis, Office (52034) UA - LEUKOCYTE ESTERASE Negative (Normal) UA - NITRITE Negative (Normal) URINE UROBILINGN DYLAN TIMED Normal mg/dL (Normal) UA - PROTEIN Negative mg/dL (Normal) UA - PH 6.5 (Normal) UA - BLOOD Negative (Normal) UA - SPECIFIC GRAVITY 1.015 (Normal) UA - KETONES Negative mg/dL (Normal) UA - BILIRUBIN Negative (Normal) UA - GLUCOSE Negative (Normal) 8-Ldn-227570:02 MAGNESIUM (86901) Comments: PATIENT WAS FASTINGPERFORMED BY: [facility] Wsruaq9512 [facility] [id number] BY: BN [facility] [id number] Magnesium, Serum 1.9 mg/dL (Normal) Range: 1.6-2.3 5-Kkt-466865:02 Hemoglobin Glyclated (HGB Comments: PATIENT WAS FASTINGPERFORMED BY: [place] 8132870 [facility] Centerblin [place] [id number] BY: [address] [id number] A1C) (72633) Hemoglobin A1c 5.8 % (Abnormal) Range: 4.8-5.6 Comments: . Pre-diabetes: 5.7 - 6.4 Diabetes: >6.4 Glycemic control for adults with diabetes: <7.0 0-Yvu-995914:02 Vitamin B-12 (cyanocobalamin) Comments: PATIENT WAS FASTINGPERFORMED BY: [place] 8132870 [facility] [id number] BY: [address] [id number] (24215) Vitamin B12 339 pg/mL (Normal) Range: 211-946 2-Txv-184267:02 VITAMIN D, 1, 25-DIHYDROXY Comments: PATIENT WAS FASTINGPERFORMED BY: Nab[employer]a TherapeuticsMichelle [place]ille 1270070 [facility] [id number] BY: [address] [id number] (37723) Calcitriol(1,25 di-OH Vit D) 48.3 pg/mL (Normal) Range: 19.9-79.3 2-Ezp-871275:02 TSH (THYROID STIMULATING Comments: PATIENT WAS FASTINGPERFORMED BY: Nab[employer]a TherapeuticsMichelle [place]ille 1270070 [facility]in [place] [id number] BY: [address] [id number] HORMONE) (76195) TSH 0.656 {uIU/mL} (Normal) Range: 0.450-4.500 4-Pnk-177436:02 PSA (Medicare - G0103) Comments: PATIENT WAS FASTINGPERFORMED BY: CB LabUniversity [facility] Health6370 [facility] [id number] BY: [employer] [id number] (88487) Prostate Specific Ag, 0.9 ng/mL (Normal) Range: 0.0-4.0 Serum Comments: Brissa ECLIA methodology. .According to the [place] U[employer], Serum PSA shoulddecrease and remain at undetectable levels after radicalprostatectomy. The AUA defines biochemical recurrence as an initialPSA value 0.2 ng/mL or greater followed by a subsequent confirmatoryPSA value 0.2 ng/mL or greater.Values obtained with d ifferent assay methods or kits cannot be usedinterchangeably. Results cannot be interpreted as absolute evidenceof the presence or absence of malignant disease. 2-Dkp-019962:02 METABOLIC PANEL, Comments: PATIENT WAS FASTINGPERFORMED BY: [employer] Ncxqdv6313 [facility] [id number] BY: [employer] [id number] [facility] (43936) ALT (SGPT) 22 [iU]/L (Normal) Range: 0-44 AST (SGOT) 21 [iU]/L (Normal) Range: 0-40 Alkaline Phosphatase, S 71 [iU]/L (Normal) Range: 39-117 Bilirubin, Total 0.4 mg/dL (Normal) Range: 0.0-1.2 A/G Ratio 1.5 (Normal) Range: 1.1-2.5 Globulin, Total 2.8 g/dL (Normal) Range: 1.5-4.5 Albumin, Serum 4.2 g/dL (Normal) Range: 3.5-4.8 Protein, Total, Serum 7.0 g/dL (Normal) Range: 6.0-8.5 Calcium, Serum 9.6 mg/dL (Normal) Range: 8.6-10.2 Carbon Dioxide, Total 26 mmol/L (Normal) Range: 18-29 Chloride, Serum 101 mmol/L (Normal) Range: 97-108 Potassium, Serum 4.9 mmol/L (Normal) Range: 3.5-5.2 Sodium, Serum 141 mmol/L (Normal) Range: 134-144 BUN/Creatinine Ratio 18 (Normal) Range: 10-22 eGFR If Africn Am 96 mL/min/1.73 (Normal) eGFR If NonAfricn Am 83 mL/min/1.73 (Normal) Creatinine, Serum 0.90 mg/dL (Normal) Range: 0.76-1.27 BUN 16 mg/dL (Normal) Range: 8-27 Glucose, Serum 87 mg/dL (Normal) Range: 65-99 1-Hjk-174174:02 CBC, PLATELETS & AUT DIFF Comments: PATIENT WAS FASTINGPERFORMED BY: CB [facility] [id number] [facility] [id number] BY: BN [facility] [address] [id number] Information: [id number] ([id number]) Immature Grans (Abs) 0.0 {x10E3/uL} (Normal) Range: 0.0-0.1 Immature Granulocytes 0 % (Normal) Baso (Absolute) 0.0 {x10E3/uL} (Normal) Range: 0.0-0.2 Eos (Absolute) 0.2 {x10E3/uL} (Normal) Range: 0.0-0.4 Monocytes(Absolute) 0.7 {x10E3/uL} (Normal) Range: 0.1-0.9 Lymphs (Absolute) 1.7 {x10E3/uL} (Normal) Range: 0.7-3.1 Neutrophils (Absolute) 3.4 {x10E3/uL} (Normal) Range: 1.4-7.0 Basos 1 % (Normal) Eos 3 % (Normal) Monocytes 12 % (Normal) Lymphs 28 % (Normal) Neutrophils 56 % (Normal) Platelets 175 {x10E3/uL} (Normal) Range: 150-379 RDW 13.5 % (Normal) Range: 12.3-15.4 MCHC 35.1 g/dL (Normal) Range: 31.5-35.7 MCH 31.3 pg (Normal) Range: 26.6-33.0 MCV 89 fL (Normal) Range: 79-97 Hematocrit 47.9 % (Normal) Range: 37.5-51.0 Hemoglobin 16.8 g/dL (Normal) Range: 12.6-17.7 RBC 5.36 {x10E6/uL} (Normal) Range: 4.14-5.80 WBC 6.1 {x10E3/uL} (Normal) Range: 3.4-10.8 1-Ihg-960825:02 LIPID PANEL ([id number]) Comments: PATIENT WAS FASTINGPERFORMED BY: CB [facility] [id number] [facility] [id number] BY: BN [facility] [id number] [facility] [id number] LDL/HDL Ratio 2.3 {ratio_units} (Normal) Range: 0.0-3.6 Comments: LDL/HDL Ratio Men Women 1/2 Avg.Risk 1.0 1.5 Av g.Risk 3.6 3.2 2X Avg.Risk 6.2 5.0 3X Avg.Risk 8.0 6.1 LDL Cholesterol Calc 100 mg/dL (Abnormal) Range: 0-99 VLDL Cholesterol Neville 19 mg/dL (Normal) Range: 5-40 HDL Cholesterol 43 mg/dL (Normal) Comments: According to ATP-III Guidelines, HDL-C >59 mg/dL is considered anegative risk factor for CHD. Triglycerides 97 mg/dL (Normal) Range: 0-149 Cholesterol, Total 162 mg/dL (Normal) Range: 100-199 Plan of Care Name Dates Details Instructions Current nonsmoker : Follow up in 6 months Indication: Current nonsmoker Current nonsmoker : Eprescribed prescriptions (G8553) Indication: Current nonsmoker Vitamin D deficiency : Follow up in 3 days Indication: Vitamin D deficiency Well Male Exam (V70.0) (Renamed from Well Male physical medicare and non medicare) : fall reduction handout Indication: Well Male Exam (V70.0) (Renamed from Well Male physical medicare and non medicare) Well Male Exam (V70.0) (Renamed from Well Male physical medicare and non medicare) : elderly packet given Indication: Well Male Exam (V70.0) (Renamed from Well Male physical medicare and non medicare) Well Male Exam (V70.0) (Renamed from Well Male physical medicare and non medicare) : advance planning information Indication: Well Male Exam (V70.0) (Renamed from Well Male physical medicare and non medicare) Current nonsmoker : Eprescribed prescriptions (G8553) Indication: Current nonsmoker COPD (chronic obstructive pulmonary disease) : Eprescribed prescriptions (G8553) Indication: COPD (chronic obstructive pulmonary disease) Afib : Eprescribed prescriptions (G8553) Indication: Afib Encounter for screening for malignant neoplasm of prostate (Renamed from Screening for prostate cancer) : Follow up in 4 months Indication: Encounter for screening for malignant neoplasm of prostate (Renamed from Screening for prostate cancer) Abnormal glucose : Eprescribed prescriptions (G8553) Indication: Abnormal glucose Current nonsmoker : Eprescribed prescriptions (G8553) Indication: Current nonsmoker Current nonsmoker : Follow up if no improvement or if symptoms worsen Indication: Current nonsmoker Cough : Eprescribed prescriptions (G8553) Indication: Cough Hypercholesteremia : Follow up if no improvement or if symptoms worsen Indication: Hypercholesteremia Cough : Eprescribed prescriptions (G8553) Indication: Cough BMI 28.0-28.9,adult : Follow up tomorrow for quick f/u and solumedrol Indication: BMI 28.0-28.9,adult Prediabetes : Eprescribed prescriptions (G8553) Indication: Prediabetes Well Male Exam (V70.0) (Renamed from [facility] physical medicare and non medicare) : Follow up in 6 months Indication: Well Male Exam (V70.0) (Renamed from [facility] physical medicare and non medicare) Family history of colon cancer : *Colon Cancer Screening Indication: Family history of colon cancer Well Male Exam (V70.0) (Renamed from [facility] physical medicare and non medicare) : Eprescribed prescriptions (G8553) Indication: Well Male Exam (V70.0) (Renamed from [facility] physical medicare and non medicare) Hypertension : Diet, Exercise, and Wt loss Indication: Hypertension Hypertension : HTN/CAD Red Flags Indication: Hypertension Hypercholesteremia : *Cholesterol - Medication Side Effects Indication: Hypercholesteremia Hypercholesteremia : *Cholesterol - Nonprescription Treatment Indication: Hypercholesteremia Hypercholesteremia : Eprescribed prescriptions (G8553) Indication: Hypercholesteremia Planned Observations HgA1C , Office ([id number])Indication: Abnormal glucose On: 37-Pnm-324252:14 Request MICROALBUMIN: CREATININE RATIO (92739) AND (39738)Indication: Hypertension On: :51 Request URINALYSIS (61811)Indication: Hypertension On: 94-Rpt-07011:51 Request CBC WITH MANUAL DIFF (23777)Indication: Hypercholesteremia On: :51 Request Metabolic Panel, Comprehensive (15740)Indication: Hypercholesteremia On: :51 Request Lipid Panel (02643)Indication: Hypercholesteremia On: :51 Request D-Dimer (48377)Indication: Cough On: 3-Gjx-511741:03 Request Metabolic Panel, Comprehensive (44563)Indication: Cough On: 7-Lub-461753:02 Request BNTP (00486)Indication: Cough On: 1-Agy-282639:02 Request CBC & PLATELETS (AUTO) (13902)Indication: Cough On: 8-Szw-577635:58 Request MICROALBUMIN: CREATININE RATIO (97266) AND (70033)Indication: Hypertension On: 62-Iud-308414:16 Request PSA (PROSTATE SPECIFIC ANTIGEN) (V76.44)Indication: Hypertension On: 29-Bwt-647698:16 Request CALCIFEDIOL (01941)Indication: Hypertension On: 48-Bgs-176312:16 Request TSH (THYROID STIMULATING HORMONE) (77770)Indication: Hypertension On: 86-Cur-653662:16 Request LIPID PANEL (81400)Indication: Hypertension On: 40-Eeb-666456:15 Request METABOLIC PANEL, COMPREHENSIVE (83035)Indication: Hypertension On: 16-Sxd-373396:15 Request CBC, PLATELETS & AUT DIFF (03726)Indication: Hypertension On: 46-Tiq-039850:15 Request CBC WITH MANUAL DIFF (36115)Indication: Polycythemia On: :21 Request IRON & TOTAL IRON BINDING CAPACITY (08433)Indication: Polycythemia On: :21 Request FERRITIN (64312)Indication: Polycythemia On: :21 Request Planned Procedures B 12 Injection, 1000 mcg On: 21-Oct-2017 Intent ([id number])By: Evan MORRISON, Comments: [id number]/[id number] immlong Fanta Gordon CNP, Fanta Zayas TDAP VACCINE >7 IM On: 18-Oct-2017 Intent (73756)By: Shawandasalvatorefe MORRISON Fanta Gordon CNP, Vivienne SIX MINUTE WALK TEST On: 13-Oct-2017 Intent ([id number])By: Erica, Nurse Spirometry ([id number])By: On: 02-Aug-2017 Intent Evan PRINCE Fanta Gordon CNP, Vivienne ELECTROCARDIOGRAM, On: 01-Apr-2017 Intent COMPLETE (ECG) ([id number])By: Shawandasalvatorefe MORRISON Fanta Gordon CNP, Vivienne Aerosol Treatment On: 21-Jun-2016 Intent ([id number])By: Stanfe MORRISON Fanta Gordon CNP, Vivienne Solu -Medrol Injection, On: 15-Jun-2016 Intent 125 mg ([id number])By: Evan Comments: solumedrollot:[id number]:10/09site:rt deltroute:IMdose:125mgD.KELLY Ma CNP, Fanta Gordon GETTER OPERATOR, Vivienne Radiology - ChestBy: On: 14-Jun-2016 Intent Stanfe MORRISON Fanta Gordon Comments: call to [facility] doc aviation electrician Fanta MORRISON Solu -Medrol Injection, On: 14-Jun-2016 Intent 125 mg ([id number])By: Evan Comments: Lot:[id number]:09/2018Dose:125mgRoute:im Site:r [facility] By:NEGIN lai CNP, Fanta Gordon CNP, Vivienne Aerosol Treatment On: 14-Jun-2016 Intent ([id number])By: Evan MORRISON Fanta Gordon CNP, Vivienne Aerosol Treatment On: 23-Mar-2016 Intent ([id number])By: Hardeep Clark MD PULMONARY FUNCTION On: 23-Mar-2016 Intent TESTING (PFT) WITH SPIROMETRY ([id number])By: Hardeep Clark MD Spirometry ([id number])By: On: 23-Mar-2016 Intent Hardeep Clark MD Overnight Pulse OX On: 28-Mar-2015 Intent ([id number])By: Eduardo BRADFORD, Comments: no charge Hardeep PFT - CompleteBy: Eduardo On: 18-Mar-2015 Intent Hardeep BRADFORD Overnight Pulse OX On: 18-Mar-2015 Intent ([id number])By: Eduardo BRADFORD, Comments: without oxygen Hardeep Planned Medications INJECTION, METHYLPREDNISOLONE SODIUM SUCCINATE, UP TO 125 MG Ordered: 14-Jun-2016 Pending Fanta Gordon CNP, CNP, Mary E INJECTION, METHYLPREDNISOLONE SODIUM SUCCINATE, UP TO 125 MG Ordered: 15-Jun-2016 Pending Fanta Gordon CNP, CNP, Mary E Vitamin B-12 1000 MCG/ML Injection Solution Ordered: 21-Oct-2017 Pending Fanta Gordon CNP, CNP, Mary E Instructions Name Dates Details Current nonsmoker : How to access health information online Indication: Current nonsmoker Current nonsmoker : How to access health information online - Detail Indication: Current nonsmoker Current nonsmoker : Patient Instructions Indication: Current nonsmoker Current nonsmoker : How to access health information online Indication: Current nonsmoker Current nonsmoker : How to access health information online - Detail Indication: Current nonsmoker COPD (chronic obstructive pulmonary disease) : Patient Instructions Indication: COPD (chronic obstructive pulmonary disease) COPD (chronic obstructive pulmonary disease) : How to access health information online Indication: COPD (chronic obstructive pulmonary disease) COPD (chronic obstructive pulmonary disease) : How to access health information online - Detail Indication: COPD (chronic obstructive pulmonary disease) COPD (chronic obstructive pulmonary disease) : Patient Instructions Indication: COPD (chronic obstructive pulmonary disease) Afib : How to access health information online Indication: Afib Afib : How to access health information online - Detail Indication: Afib Afib : Patient Instructions Indication: Afib Abnormal glucose : How to access health information online Indication: Abnormal glucose Abnormal glucose : How to access health information online - Detail Indication: Abnormal glucose Abnormal glucose : Patient Instructions Indication: Abnormal glucose Current nonsmoker : How to access health information online Indication: Current nonsmoker Current nonsmoker : How to access health information online - Detail Indication: Current nonsmoker Current nonsmoker : Patient Instructions Indication: Current nonsmoker Cough : How to access health information online Indication: Cough Cough : How to access health information online - Detail Indication: Cough Cough : Patient Instructions Indication: Cough Hypercholesteremia : DISCONTINUED - LIPID PANEL ([id number]) Indication: Hypercholesteremia Cough : How to access health information online Indication: Cough Cough : How to access health information online - Detail Indication: Cough Cough : Patient Instructions Indication: Cough Prediabetes : How to access health information online Indication: Prediabetes Prediabetes : How to access health information online - Detail Indication: Prediabetes Prediabetes : Patient Instructions Indication: Prediabetes Well Male Exam (V70.0) (Renamed from Well Male physical medicare and non medicare) : How to access health information online Indication: Well Male Exam (V70.0) (Renamed from Well [facility] physical medicare and non medicare) Well Male Exam (V70.0) (Renamed from Well [employer] physical medicare and non medicare) : How to access health information online - Detail Indication: Well Male Exam (V70.0) (Renamed from Well [facility] physical medicare and non medicare) Well Male Exam (V70.0) (Renamed from Well Male physical medicare and non medicare) : Patient Instructions Indication: Well Male Exam (V70.0) (Renamed from Well Male physical medicare and non medicare) Hypercholesteremia : How to access health information online Indication: Hypercholesteremia Hypercholesteremia : How to access health information online - Detail Indication: Hypercholesteremia Hypercholesteremia : Patient Instructions Indication: Hypercholesteremia Encounters Office Visit On: 21-Oct-2017 10:49 Encounter Reason: Follow up for chronic medical issues - The patient feels well with no complaints, has good energy level and is sleeping well (2 tylenol PM). Patient has been compliant with instructions. Current medicat End: 21-Oct-2017 13:29 ion use: no side effects and compliant with dosing regimen. Patient sleeps 7 (broken) hours per night. Nutrition: balanced diet. The medical issues the patient is following up for include All identified problems below, blood sugar issues, depression, high blood pressure and high cholesterol.Encounter Diagnosis: BMI 29.0-29.9,adult, Current nonsmoker, Vitamin D deficiency, B12 deficiency [facility] Office Visit On: 18-Oct-2017 9:38 Encounter Reason: Annual Medicare Exam - The patient had reviewed and updated the family history, medication/s, past medical history and social history. Yes the patient did have a mini mental status exam done today. The End: 18-Oct-2017 10:54 activities of daily living the patient needs help with are none. The patient has driven in past 6 months and put area rugs through house. The patient has completed the following preventative measures: c olonoscopy (approx. 2013). The patient does have durable power of ip attorney and living will. The patient has noticed lack of energy. Other providers contributing to the patient's care are transit department clerk (bhumi belle ([facility])) and pulverizer (dr. cho). Note for Annual Medicare Exam: Here for annual medicare examEncounter Diagnosis: Current nonsmoker, BMI 29.0-29.9,adult, Well Male Exam (V70.0) (Renamed from Well Male physical medicare and non medicare), Encounter for screening for lipid disorder, Encounter for screening for other suspected endocrine disorder, COPD (chronic obstructive pulmonary disease), Need for Tdap vaccination (Renamed from Need for tjgkgkdyhb-vwvsrhg-nnbicqzuz (Tdap) vaccine, adult/adolescent), Family history of Alzheimer's disease, Vitamin D deficiency [facility] Nurse Visit On: 13-Oct-2017 10:18 Encounter Reason: Nurse procedure visit - The symptoms have been associated with other (walk test).Encounter Diagnosis: COPD (chronic obstructive pulmonary disease) End: 13-Oct-2017 13:18 [facility] Phone Encounter On: 02-Aug-2017 7:44 Encounter Diagnosis: Afib, COPD (chronic obstructive pulmonary disease), Depression, GERD (gastroesophageal reflux disease), Hypercholesteremia, Current nonsmoker, Hypertension, Abnormal glucose End: 02-Aug-2017 11:19 [facility] Office Visit On: 01-Apr-2017 11:10 Encounter Reason: Follow up for chronic medical issues - The patient feels well with minor complaints and is sleeping well (2 tylenol PM). Patient has been compliant with instructions. Current medication use: no side eff End: 01-Apr-2017 12:19 ects. Patient sleeps 7 (broken) hours per night. The medical issues the patient is following up for include All identified problems below, blood sugar issues, depression, high blood pressure and high cholesterol.Encounter Diagnosis: Abnormal glucose , Hypercholesteremia, Hypertension, Afib, Encounter for screening for malignant neoplasm of prostate (Renamed from Screening for prostate cancer) [facility] Historical Summary On: 23-Jul-2016 13:46 [facility] End: 23-Jul-2016 13:58 Office Visit On: 23-Jun-2016 11:43 Encounter Reason: Follow up hospital - Reason for ER visit: DVT (negative). The patient feels well with no complaints, has good energy level and is sleeping well. Patient has been compliant with instructions. Current med End: 23-Jun-2016 12:43 ication use: no side effects and compliant with dosing regimen. Patient sleeps 7 hours per night. Nutrition: balanced diet.Encounter Diagnosis: BMI 28.0- 28.9,adult, Current nonsmoker, Abnormal CT of the chest, Sleep apnea, Elevated WBC count, Polycythemia, Tooth abscess, Cough [facility] Office Visit On: 21-Jun-2016 15:01 Encounter Reason: Follow up acute care visit - The patient does not feel well. Patient has been compliant with instructions. Current medication use: no side effects. The medical issues the patient is following up for inc End: 21-Jun-2016 16:14 lude URI. Note for Follow up acute care visit: Has been on 3-4 rounds of antibiotics , [ADDITIONAL REASON] tooth pain from abcess - rt tooth pain with known tooth abcess , [ADDITIONAL REASON] Cough - Note for Cough : Not coughing spasms and able to sleep but not !005well Encounter Diagnosis: BMI 28.0-28.9,adult, Current nonsmoker, Cough, Tooth abscess [facility] Office Visit On: 15-Jun-2016 14:06 Encounter Reason: Follow up acute care visit - The patient feels the same. Patient has been compliant with instructions. The medical issues the patient is following up for include URI., End: 15-Jun-2016 16:11 [ADDITIONAL REASON] Follow up tests - Diagnostic tests include chest X-ray. Date: (06/14/16). Current symptoms include cough. , [ADDITIONAL REASON] Cough - Note for Cough: CoughWaking at night or early am with cough Encounter Diagnosis: BMI 28.0-28.9,adult, Current nonsmoker, Cough, COPD with acute exacerbation (Renamed from Acute exacerbation of chronic obstructive airways disease), Hypercholesteremia [facility] Office Visit On: 14-Jun-2016 14:53 Encounter Reason: Cough - Symptoms include cough, dyspnea, wheezing and fever. The cough is described as productive (yellow). The cough occurs constantly. Symptoms are described as improving. Current treatment includes a End: 14-Jun-2016 16:16 ntibiotics and oral corticosteroids. Previous presentation included a cough and dyspnea.Encounter Diagnosis: Current nonsmoker, BMI 28.0-28.9,adult, Wheeze, COPD with acute exacerbation (Renamed from Acute exacerbation of chronic obstructive airways disease), Flu-like symptoms [facility] Office Visit On: 23-Mar-2016 9:11 Encounter Reason: Follow up for chronic medical issues - The patient feels well with minor complaints (cold sx the last few weeks (filling out form)). Current medication use: no side effects. Patient sleeps 7 hours per n End: 23-Mar-2016 17:13 ight. The medical issues the patient is following up for include All identified problems below, blood sugar issues, depression, high blood pressure and high cholesterol.Encounter Diagnosis: Prediabetes, BMI 28.0-28.9,adult, Current nonsmoker, COPD (chronic obstructive pulmonary disease), Insomnia, Family history of colon cancer, Polycythemia, Hypertension, Afib, KALYAN on CPAP, Depression, Skin cancer, GERD (gastroesophageal reflux disease), Obesity (BMI 30.0-34.9), Nocturia, Hypercholesteremia, URTI (acute upper respiratory infection), Bronchitis, Colon polyps [facility] Phone Encounter On: 13-Aug-2015 11:43 Encounter Diagnosis: Hypertension End: 13-Aug-2015 11:45 [facility] Office Visit On: 09-Apr-2015 7:54 Encounter Reason: Annual Medicare Exam - Yes the patient did have a mini mental status exam done today. The activities of daily living the patient needs help with are none. The patient has driven in past 6 months and put End: 09-Apr-2015 17:42 area rugs through house, but the patient has not had fecal incontinence, had urinary incontinence, missed or ran out of medications to soon, fallen in the past 6 months, gotten lost, has a medalert nec klace or bracelet or put handrails in bathroom. The patient has completed the following preventative measures: PSA testing (unknown - would have been at [facility] ) and colonoscopy (2013). The patient does chase ve durable power of ip attorney and living will. The patient has noticed nothing from the geriatic depression scale. Other providers contributing to the patient's care are transit department clerk (Dr Hoyos), gastr ologist ([facility] - Freddy or Brant did the scope- last colonoscopy was 2013 and told to repeat in 10 years) and other: ([facility]).Encounter Diagnosis: Well Male Exam (V70.0) (Renamed from Well Male physical medicare and non medicare), KALYAN on CPAP, Hypercholesteremia, Depression, Afib, Hypertension, GERD (gastroesophageal reflux disease), COPD (chronic obstructive pulmonary disease), Skin cancer, Obesity (BMI 30.0-34.9), Family history of colon cancer, Prediabetes, Polycythemia [facility] Phone Encounter On: 03-Apr-2015 9:15 Encounter Diagnosis: Polycythemia End: 03-Apr-2015 9:23 [facility] Phone Encounter On: 01-Apr-2015 14:26 Encounter Diagnosis: KALYAN on CPAP, COPD (chronic obstructive pulmonary disease) End: 01-Apr-2015 14:30 [facility] Phone Encounter On: 28-Mar-2015 13:19 Encounter Reason: Nurse procedure visit - Reason for visit: overnight pulse oximetry.Encounter Diagnosis: COPD (chronic obstructive pulmonary disease), KALYAN on CPAP End: 02-Apr-2015 13:24 [facility] Nurse Visit On: 24-Mar-2015 13:17 Encounter Reason: Nurse procedure visit - Reason for visit: overnight pulse oximetry.Encounter Diagnosis: COPD (chronic obstructive pulmonary disease) End: 26-Mar-2015 8:20 [facility] Office Visit On: 18-Mar-2015 9:16 Encounter Diagnosis: Hypercholesteremia, Depression, Afib, Hypertension, Vertigo, GERD (gastroesophageal reflux disease), COPD (chronic obstructive pulmonary disease), History of cataract, History of hip replacement, total, bilateral, Hearing loss, End: 18-Mar-2015 15:34 Current nonsmoker, Well Male Exam (V70.0) (Renamed from Well Male physical medicare and non medicare), Nocturia [facility] Payers [employer] Life Ins/MedicareTRANS RXIrene Amos; a guarantor
--- OUTSIDE RECORDS SUMMARY | 2018-03-22 00:53 | XMS RPT_ITS | Continuity of Care Document ---
:1940 Author Organization [facility] Address [address] [place] [address] Phone Care Team Providers Name Role Phone [...] at age 68.Colonoscopy according to John Sosa ([facility]) notes was in [address] Freddy [...] for Tdap vaccination (Renamed from Need for shkkynnwky-qfxpzsp-dxntodcdz (Tdap) vaccine, adult/adolescent) (Z23, V06.1) Status: Active Nocturia (R35.1, 788.43) Comments: Patient has to wake up twice in the middle of the night to go to the bathroom.Denies frequency, urgency, hesitancy, burning Status: Active KALYAN on CPAP (G47.33, 327.23) Comments: Reviewed the rsults from [facility] on 07/05 Moderate KALYAN which was exacerbated to a severe degree during REM sleep.Respiratory events were associated with significant oxygen desaturations (jasmina 82%) on ro om air. Done at [facility].Non compliant with CPAP mask Status: Active Polycythemia [...] history. Status: Active Medications Name Dates Details Altace 5 MG Oral Capsule 1 (one) Capsule qd for 90 days Quantity: 90 {Capsule} Refills: 0 Ordered:26-Sep-2017 Fanta Gordon CNP, CNP, Mary E Start : 26-Sep-2017 End : 25-Sep-2017 Active Comments:need appt for further refills (after this) cpap chin strap, use a night Active Comments:[employer]i [employer] -- not sure who manages it Lisinopril 30 MG Oral Tablet 1 (one) Tablet qd for 90 days Quantity: 90 {Tablet} Refills: 3 Ordered:07-Oct-2017 Fanta Gordon CNP, CNP, Mary E Start : 07-Oct-2017 Active Prevacid 30 MG Oral Capsule Delayed Release 1 (one) Capsule DR bid for 0 days Quantity: 180 {Capsule} Refills: 1 Ordered:01-Apr-2017 Fanta Gordon CNP, CNP, Mary E Start : 01-Apr-2017 Active Qvar 80 MCG/ACT Inhalation Aerosol Solution 1 (one) Aerosol Soln bid for 90 days Quantity: 3 {Each} Refills: 1 Ordered:13-Oct-2017 Fanta Gordon CNP, CNP, Mary E Start : 13-Oct-2017 Active Toprol XL 25 MG Oral Tablet Extended Release 24 Hour 1 (one) Tablet ER 24HR qd, hold for P<45 for 0 days Quantity: 90 {Tablet} Refills: 3 Ordered:01-Apr-2017 Fanta Gordon CNP, CNP, Mary E Start : 01-Apr-2017 Active Ventolin HFA 108 [...] CNP, Fanta Zayas Start : 28-Nov-2017 Active Levaquin 500 MG Oral Tablet 1 (one) Tablet daily for 10 days Quantity: 10 {Tablet} Refills: 0 Ordered:23-Mar-2016 Hardeep Clark MD Start : 23-Mar-2016 End : 02-Apr-2016 Inactive Ramipril 5 MG Oral Capsule 1 (one) Capsule qd for 0 days Quantity: 30 {Capsule} Refills: 0 Ordered:16-Sep-2015 Long Ly SOLIS Start : 14-Aug-2015 End : 16-Sep-2015 Inactive Meclizine HCl 25 MG Oral Tablet 1 (one) Tablet Tablet tid prn for veritgo for 0 days Quantity: 10 {Tablet} Refills: 1 Ordered:14-Jun-2016 SlaRenetta zaidi LPN Start : 16-Mar-2016 End : 14-Jun-2016 Discontinued Mucinex 600 MG Oral Tablet Extended Release 12 Hour 1 (one) Tablet ER 12HR Tablet ER 12HR bid for 0 days Quantity: 30 {Tablet} Refills: 0 Ordered:23-Jul-2016 Slarb PACKAGE SORTER, Renetta Start : 21-Jun-2016 End : 23-Jul-2016 Discontinued PredniSONE 10 MG (21) Oral Tablet Therapy Pack 1 (one) Tab Ther Pack UAD for 0 days Quantity: 1 {Package} Refills: 0 Ordered:21-Jun-2016 Slarb PACKAGE SORTER, Renetta Start : 14-Jun-2016 End : 21-Jun-2016 Discontinued Zithromax Z-Kd 250 MG Oral Tablet 1 (one) Tablet 2 tablets at once, then 1 daily for 9 days for 10 days Quantity: 11 {Tablet} Refills: 0 Ordered:21-Jun-2016 Slarb PACKAGE SORTER, Renetta Start : 14-Jun-2016 End : 21-Jun-2016 Discontinued Allergies and Adverse Reactions Name Dates Details No Allergy Information Available Status: Past Medical History Name Dates Details Abnormal CT of the chest (R93.8, 793.2) Comments: 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 , on Zbns7685 started with some SOB after buying old [...] he said 10 years - maybe Dr Guo Hip replacement Completed Comments: L 2012 and R 11/2014 - approx dates Sleep Study Completed Comments: 07.26.2014 [facility] tel [id number] f 0920 Tonsilectomy Completed US thryoid wnl [facility] 10.31.12 Completed Date Value Details 23-Jun-2016 Emergency Department Summary Result: Comments: See Note; NOTES: [facility] Medical Records Department [address] [place] [address] Emergency Department Summary MR#: [id number] Acct: [id number] Name: SHARON AMOS Rosalio Olmedo Rep #: [id number] : 1940 75 From: Tiffanie Emanuel MD PCP: Gwen Kendrick DO Status: DEP [...] ension. Tiffanie Emanuel MD T: NTS JOB: [id number] 06/23/16 0736 <Electronically signed by Tiffanie Emanuel MD> Date Tiffanie Emanuel MD Cosigner Signature (If Indicated): Date CC: Gwen Kendrick DO Date Dictated: 06/21/16 235 Date Transcribed: 06/21/162350 Assessor: Signed 21-Jun-2016 Discharge Instruction Result: Comments: See Note; NOTES: [facility] Medical Records Department [address] [place] [address] Discharge Instruction 06/21/16 2349 MR#: [id number] Acct: [id number] Name: Bhumi AMOS Rep #: [id number] : 1940 75 From: Tiffanie Emanuel MD [...] problems, contact your Primary Care Provider. Call [facility] ([phone]) or report to the closest Emergency Room. Call 911 if necessary. 06/21/16 2 350 <Electronically signed by Tiffanie Emanuel MD> Date Tiffanie Emanuel MD Cosigner Signature (If Indicated): Date CC: Gwen Kendrick DO -Jun-2016 CTA Chest W/WO Contrast Result: Comments: See Note; NOTES: [facility] Imaging Services [address] [place] [address] Verdana 4d CTA Chest W/WO Contrast MR#: [id number] Acct: [id number] Name: IRENE AMOS Rep #: [id number] : 1940 M 75 From: Lasha Blackmon MD PCP: Gwen Kendrick DO Status: REG ER Study: CTA Chest W/WO Contrast Date of Exam: 06/21/16 Exam# [id number] Ordering Dr: Tiffanie Emanuel MDDY: CTA CHEST [...] MD at 23:19 EDT , Service support [phone], CC: Gwen Kendrick DO; Tiffanie Emanuel MD Assessor: Signed 14-Jun-2016 Chest PA and Lateral Result: Comments: See Note; NOTES: [facility] Imaging Services [address] [place] [address] Verdana 4d Chest PA and Lateral MR#: [id number] Acct: [id number] Name: IRENE AMOS Rep #: [id number] : 1940 M 75 From: Lasha Blackmon MD PCP: Fanta Gordon Status: REG CLI Study: Chest PA and Lateral Date of Exam: 06/14/16 Exam# [id number] Ordering Dr: Fanta Gordon STUDY: X-RAY CH [...] , Service support , CC: Fanta Gordon Assessor: Signed 03-Nov-2015 12 Lead Electrocardiogram Result: Comments: See Note; NOTES: [facility] Cardiovascular Services [address] [place] [address] 12 Lead EKG 10/29/15 1556 MR#: [id number] Acct: [id number] Name: IRENE AMOS Prabha ep #: [id number] : 1940 75 From: Flavio Miller MD Attending Dr: Status: DEP Ordering Dr: eVnu Padgett MD Date: 10/29/15 Location: ED Sex: [...] normal ECG Confirmed by FLAVIO MILLER ([id number]), web content editor CRISTY GILMORE ([id number]) on 11/03/2015 2:00:06 PM Referred By: DASH Confirmed By:FLAVIO MILLER 11/03/15 1400 Date ___ Flavio Miller MD CC: Hardeep Clark Date Dictated: 10/29/15 155 Date Transcribed: 10/29/151555 Assessor: Signed 31-Oct-2015 Emergency Department Summary Result: Comments: See Note; NOTES: [facility] Medical Records Department [address] [place] [address] Emergency Department Summary MR#: [id number] Acct: [id number] Name: CHEYANNE AMOS AM Rep #: [id number] : 1940 75 From: Venu Padgett MD PCP: Hardeep Clark Status: [facility] ER DATE OF SERVICE: 10/29/2015 METHOD OF ARRIVAL: Private car. CHIEF COMPLAINT: Palpitations and anxio us. HISTORY OF PRESENT ILLNESS: A 75-year-old male, patient of Dr. Clark as well as Dr. Hoyos, who had an ablation for atrial fibrillation at [facility] 13 months ago. He states 1 [...] C: Irene Hoyos Eduardo T: NTS JOB: [id number] 10/31/15802 <Electronically si gned by Venu Padgett MD> Date Venu Padgett MD Cosigner Signature (If Indicated): Date CC: Hardeep Clark; IRENE HOYOS Date Dictated: 10/29/152321 Date Transcribed: 10/29/152321 Assessor: Signed 29-Oct-2015 Discharge Instruction Result: Comments: See Note; NOTES: [facility] Medical Records Department [address] [place] [address] Discharge Instruction 10/29/15 1607 MR#: [id number] Acct: [id number] Name: IRENE AMOS Fe Rep #: [id number] : 1940 75 From: Venu Padgett MD [...] problems, contact your doctor. Call [facility] ([phone]) or report to the closest Emergency Room. Call 911 if necessary. 10/29/15 8278 <Electronically signed by Venu Padgett MD> Date Venu Padgett MD Cosigner Signature (If Indicated): Date CC: Hardeep Clark 16-Apr-2015 Pulmonary Function Test Result: Comments: See Note; NOTES: [facility] Pulmonary Services/Neurology [address] [place] [address] Pulmonary Function Test (Comp) MR#: [id number] Acct: [id number] Ned e: IRENE AMOS Rep #: [id number] : 1940 74 From: Jamar Cho MD Referring Dr: Hardeep Clark Status: REG CLI Ordering Dr: Hardeep Clark Date: 04/04/15 Location: PSN Sex: M C 6 1127 <Electronically signed by Jamar Cho MD> Date Jamar Cho MD CC: Hardeep Clark; Jamar Cho MD Date Dictated: 0 04/09/15 Date Transcribed: 04/09/15 1433 Assessor: ZHENG Mills 09-Apr-2015 ELECTROCARDIOGRAM, COMPLETE (ECG) (12441) Result: [MEASUREMENTS ANALYSIS] Date of Test: 04/09/2015 10:34:22; Heart Rate: 82; DE Interval: 128; QRS: 95; QT Interval: 364; Corrected QT Interval (QTc): 402; P Wave [place]: 90; QRS Wave [place]: 59; T Wave [place]: 58; Blood Pressure: 148/86 [ECG DIAGNOSTIC STATEMENTS] [...] Active Vital Signs Date Test Result Details 67-Jvz-400575:50 Temperature 97 f Comments: Method: Temporal Pulse [...] kg/m2 Body Surface Area Calculated 2.01 m2 54-Moi-78798:39 Temperature 97 f Comments: Method: Temporal Pulse [...] kg/m2 Body Surface Area Calculated 2.01 m2 23-Umr-363059:20 Comments: after - sly scale 13 Pulse [...] kg/m2 Body Surface Area Calculated 2.01 m2 81-Gcl-321832:18 Comments: before -- sly scale 9 Pulse [...] 2.02 m2 Results Date Description Value Details 57-Xum-972022:16 VITAMIN B12 AND FOLATES Comments: PATIENT WAS FASTINGPERFORMED BY: [facility] [id number] (97659) Folate (Folic Acid), Serum 10.5 ng/mL (Normal) Comments: A serum folate concentration of less than 3.1 ng/mL isconsidered to represent clinical deficiency. Vitamin B12 342 pg/mL (Normal) Range: 232-1245 97-Mpu-529314:16 CALCIFEDIOL (87487) Comments: PATIENT WAS FASTINGPERFORMED BY: [facility]70 [facility] [id number] Vitamin D, 25-Hydroxy 29.3 ng/mL (Abnormal) Range: 30.0-100.0 Comments: Vitamin D deficiency has been defined by the [place] of[place]icine and an Endocrine Society practice guideline as alevel of serum 25-OH vitamin D less than 20 ng/mL (1,2).The Endocrine Society went on to further define vitamin Dinsufficiency as a level between 21 and 29 ng/mL (2).1. IOM ([place] of Medicine). 2010. Dietary reference intakes for calcium and D. [place]: The National Academies Press.2. Ramiro MF, Chelle NELSON, Karen CHASE, et al. Evaluation, treatment, and prevention of vitamin D deficiency: an Endocrine Society clinical practice guideline. JCEM. 2010; 96(7):1911-30. 00-Bcz-305241:16 Metabolic Panel, Comprehensive Comments: PATIENT WAS FASTINGPERFORMED BY: [facility] CenterXgwxyu4169 [facility] [id number] (83509) ALT (SGPT) 29 [iU]/L (Normal) Range: 0-44 [...] 8-27 Glucose 86 mg/dL (Normal) Range: 65-99 05-Lbo-713007:16 TSH (THYROID STIMULATING Comments: PATIENT WAS FASTINGPERFORMED BY: [facility] Iuyeik3691 [facility] [id number] HORMONE) (01155) TSH 0.661 {uIU/mL} (Normal) Range: 0.450-4.500 68-Xzp-397392:16 LIPID PANEL (64947) Comments: PATIENT WAS FASTINGPERFORMED BY: [facility] SystemsJer[facility] City [facility] CenterUdhosd4172 [facility] [id number] LDL/HDL Ratio 2.2 {ratio} (Normal) Range: 0.0-3.6 Comments: LDL/HDL Ratio Men Women 1/2 Avg.Risk 1.0 1.5 Av g.Risk 3.6 3.2 2X Avg.Risk 6.2 5.0 3X Avg.Risk 8.0 6.1 LDL Cholesterol Calc 81 mg/dL (Normal) Range: 0-99 VLDL Cholesterol Neville 31 mg/dL (Normal) Range: 5-40 HDL Cholesterol 37 mg/dL (Abnormal) Triglycerides 155 mg/dL (Abnormal) Range: 0-149 Cholesterol, Total 149 mg/dL (Normal) Range: 100-199 0-Ahy-440125:28 PSA (PROSTATE SPECIFIC Comments: PATIENT NOT FASTINGPERFORMED BY: [facility] SystemsJer[facility] City [facility] CenterLqdnqf4059 [facility] [id number] ANTIGEN) (V76.44) Prostate Specific Ag, 1.2 ng/mL (Normal) Range: 0.0-4.0 Serum Comments: [place] ECLIA methodology. .According to the [place] [employer], Serum PSA shoulddecrease and remain at undetectable levels after radicalprostatectomy. The AUA defines biochemical recurrence as an initialPSA value 0.2 ng/mL or greater followed by a subsequent confirmatoryPSA value 0.2 ng/mL or greater.Values obtained with d ifferent assay methods or kits cannot be usedinterchangeably. Results cannot be interpreted as absolute evidenceof the presence or absence of malignant disease. 8-Rdv-006196:01 MICROALBUMIN: CREATININE RATIO Comments: PATIENT WAS FASTINGPERFORMED BY: [facility]6370 [facility] [id number] (15487) AND (11560) Alb/Creat Ratio <8.0 {mg/g_creat} (Normal) Range: 0.0-30.0 Albumin, Urine <3.0 ug/mL (Normal) Creatinine, Urine 37.5 mg/dL (Normal) 0-Xhw-765618:01 URINALYSIS (03339) Comments: PATIENT WAS FASTINGPERFORMED BY: [facility] [id number] Microscopic Examination MICNIP (Normal) Comments: Microscopic not indicated and not performed. Nitrite, Urine Negative (Normal) Urobilinogen,Semi-Qn 0.2 mg/dL (Normal) Range: 0.2-1.0 Bilirubin Negative (Normal) Occult Blood Negative (Normal) Ketones Negative (Normal) Glucose Negative (Normal) Protein Negative (Normal) WBC Esterase Negative (Normal) Appearance Clear (Normal) Urine-Color Yellow (Normal) pH 6.0 (Normal) Range: 5.0-7.5 Specific [place] 1.011 (Normal) Range: 1.005-1.030 2-Czs-943194:01 CBC, Platelets & Auto Diff Comments: PATIENT WAS FASTINGPERFORMED BY: [facility] [id number] (61473) Immature Grans (Abs) 0.0 {x10E3/uL} (Normal) Range: [...] 4.14-5.80 WBC 6.7 {x10E3/uL} (Normal) Range: 3.4-10.8 5-Nfs-501688:01 Metabolic Panel, Comprehensive Comments: PATIENT WAS FASTINGPERFORMED BY: [facility]CoJer[facility] CenterWbxrln2816 [facility] [id number] (14605) ALT (SGPT) 34 [iU]/L (Normal) Range: 0-44 [...] Glucose, Serum 82 mg/dL (Normal) Range: 65-99 1-Rbp-070362:21 HgA1C , Office (74238) Comments: 5.4 HgA1C , Office 5.4 % (Normal) Range: 4.6 - 7.1 7-Aro-771102:01 LIPID PANEL (81573) Comments: PATIENT WAS FASTINGPERFORMED BY: [employer] Oicqiq1384 [facility] [id number] LDL/HDL Ratio 2.4 {ratio_units} (Normal) Range: 0.0-3.6 Comments: LDL/HDL Ratio Men Women 1/2 Avg.Risk 1.0 1.5 Av g.Risk 3.6 3.2 2X Avg.Risk 6.2 5.0 3X Avg.Risk 8.0 6.1 LDL Cholesterol Calc 102 mg/dL (Abnormal) Range: 0-99 VLDL Cholesterol Neville 22 mg/dL (Normal) Range: 5-40 HDL Cholesterol 42 mg/dL (Normal) Triglycerides 111 mg/dL (Normal) Range: 0-149 Cholesterol, Total 166 mg/dL (Normal) Range: 100-199 5-Euu-728616:20 Blood Glucose , Office (76739) Blood Glucose , Office 111 (Normal) 39-Odu-244695:14 CBC, Platelets & Auto Diff Comments: repeat July 05; PATIENT NOT FASTINGPERFORMED BY: [facility] SystemsJer[facility] City Medical CenterTnpkgx5794 [facility] [id number] (52281) Immature Grans (Abs) 0.0 {x10E3/uL} (Normal) Range: [...] 4.14-5.80 WBC 5.9 {x10E3/uL} (Normal) Range: 3.4-10.8 4-Nth-450610:32 BNP,B-Type NATRIURETIC PEPTIDE Comments: [address] [place], [place], [id number] B-TYPE BIRD PEP 8.5 pg/mL (Normal) Range: 0-100 4-Lkh-349906:32 CBC W/Diff, Automated Comments: [address] [place], [place], [id number] Absolute Lymph 2.84 {X10_3/ul} (Normal) Range: 0.83-4.51 [...] 4.6-6.2 WBC 11.8 K/mm3 (Abnormal) Range: 4.4-11.0 5-Ptd-674479:32 Comprehensive Metabolic Profil Comments: [facility] [address] [place], [address] GAP 7 (Normal) Range: 5-15 CO2 30.0 [...] 7-18 GLU 84 mg/dL (Normal) Range: 70-110 7-Odb-076322:32 D-Dimer Quantitative (DVT/PE) Comments: [facility] [address] [place], [address] D-DIMER QUANT 1.10 {FEU/ug/m} (Abnormal) Range: 0.27-0.49 Comments: D-Dimer ELEVATED (>0.49): Additional studies and clinicalassessments are indicated to conclude diagnosis of:Deep Vein Thrombosis (DVT) or Pulmonary Embolism (PE)CRITICAL VALUE VERIFIED. CALLED TO DR KENDRICK06/21/16 1451 Katelyn Holland.RESULTS READ BACK BY SAME . :40 Sputum Culture (47750) Comments: PATIENT NOT FASTINGPERFORMED BY: [facility]CoJer[facility] CenterTtxliv3102 [facility] [id number] Information: SRC:SP Result 1 RRF (Normal) Comments: Routine respiratory nelly Lower Respiratory Culture Final report (Normal) 22-Iay-680957:15 Rapid Flu (19758 x 2) Comments: neg Influenza A Ag neg a and b (Normal) :17 HgA1C , Office (78828) HgA1C , Office 5.6 % (Normal) Range: 4.6 - 7.1 :17 Blood Glucose , Office (08351) Blood Glucose , Office 108 (Normal) 37-Jcw-612048:00 COLON BIOPSY (CHOOSE See Note (Normal) Comments: [facility] [address] [place], [address] SITE) Comments: Patient: IRENE AMOS : 1940 (74/M) Acct Num: [id number] Phys: Artemio Juarez Unit Num: [id number] Loc: LABSPEC Specimen: [id number] Received: 07/01/151616 Spec Type: COLON BX TISSUES [...] is totally submitted in one cassette. / ALFREDO:alphonso 07/02/15 TC:1 CPT:78324 x2 HEADER OPERATION: Colonoscopy with biopsy PRE-OP DIAGNOSIS: High risk screening / polyp TISSUE SUBMITTED: A - Polyp right colon, rule out adenoma, B - Sigmoid polyp, rule out adenoma MICROSCO PIC DESCRIPTION Slides are reviewed. MICROSCOPIC DIAGNOSIS A. Polyp, right colon, biopsy: Fragments of hyperplastic polyp. B. Sigmoid polyp, biopsy: Tubular adenoma. SJ:alphonso 02/05 Signed Kelvin Boland 07/03/15 <signature on file> 27-Ttj-355216:18 Urinalysis, Office (41880) UA - LEUKOCYTE ESTERASE Negative (Normal) UA - NITRITE Negative (Normal) URINE UROBILINGN DYLAN TIMED Normal mg/dL (Normal) UA - PROTEIN Negative mg/dL (Normal) UA - PH 6.5 (Normal) UA - BLOOD Negative (Normal) UA - SPECIFIC GRAVITY 1.015 (Normal) UA - KETONES Negative mg/dL (Normal) UA - BILIRUBIN Negative (Normal) UA - GLUCOSE Negative (Normal) 8-Cur-402669:02 MAGNESIUM (89362) Comments: PATIENT WAS FASTINGPERFORMED BY: CB [facility] Rhjwvr8119 [facility] [id number] BY: BN [facility] [address] [id number] Magnesium, Serum 1.9 mg/dL (Normal) Range: 1.6-2.3 6-Gza-655966:02 Hemoglobin Glyclated (HGB Comments: PATIENT WAS FASTINGPERFORMED BY: [facility] SystemsJer[facility] City Medical CenterYuqano5706 [address] [facility] HospitalDublin [place] [id number] BY: [address] [id number] A1C) (61079) Hemoglobin A1c 5.8 % (Abnormal) Range: 4.8-5.6 Comments: . Pre-diabetes: 5.7 - 6.4 Diabetes: >6.4 Glycemic control for adults with diabetes: <7.0 :02 Vitamin B-12 (cyanocobalamin) Comments: PATIENT WAS FASTINGPERFORMED BY: [facility] SystemsTsaile Health CenterXdzfyq0135 Garcia RoadDublin [place] [id number] BY: [place] [id number] (48113) Vitamin B12 339 pg/mL (Normal) Range: 211-946 1-Ulp-455874:02 VITAMIN D, 1, 25-DIHYDROXY Comments: PATIENT WAS FASTINGPERFORMED BY: [facility] Qndqmp0700 [facility] [id number] BY: Tarisa[address] [id number] (42733) Calcitriol(1,25 di-OH Vit D) 48.3 pg/mL (Normal) Range: 19.9-79.3 0-Gep-023794:02 TSH (THYROID STIMULATING Comments: PATIENT WAS FASTINGPERFORMED BY: [facility] Qliznc3717 [address] [facility] Centerin [place] [id number] BY: [address] [id number] HORMONE) (21810) TSH 0.656 {uIU/mL} (Normal) Range: 0.450-4.500 :02 PSA (Medicare - G0103) Comments: PATIENT WAS FASTINGPERFORMED BY: LabBarcodingJersey City Medical CenterDkdgvh1011 [facility] [id number] BY: [place] [address] [facility] [id number] (97002) Prostate Specific Ag, 0.9 ng/mL (Normal) Range: 0.0-4.0 Serum Comments: Brissa ECLIA methodology. .According to the [place] [employer], Serum PSA shoulddecrease and remain at undetectable levels after radicalprostatectomy. The AUA defines biochemical recurrence as an initialPSA value 0.2 ng/mL or greater followed by a subsequent confirmatoryPSA value 0.2 ng/mL or greater.Values obtained with d ifferent assay methods or kits cannot be usedinterchangeably. Results cannot be interpreted as absolute evidenceof the presence or absence of malignant disease. 9-Loy-808447:02 METABOLIC PANEL, Comments: PATIENT WAS FASTINGPERFORMED BY: [facility] SystemsJersey City Medical CenterThwoat5072 [facility] [id number] BY: Tarisa[address] [id number] [facility] (92058) ALT (SGPT) 22 [iU]/L (Normal) Range: 0-44 [...] Glucose, Serum 87 mg/dL (Normal) Range: 65-99 0-Efp-544842:02 CBC, PLATELETS & AUT DIFF Comments: PATIENT WAS FASTINGPERFORMED BY: CB [facility] Qdlfgs9293 [facility] [id number] BY: BN [facility] [address] [id number] Information: 278969,L00897 (21628) Immature Grans (Abs) 0.0 {x10E3/uL} (Normal) Range: [...] 4.14-5.80 WBC 6.1 {x10E3/uL} (Normal) Range: 3.4-10.8 3-Vks-362265:02 LIPID PANEL (18619) Comments: PATIENT WAS FASTINGPERFORMED BY: CB [facility] Wofzpb0401 [facility] [id number] BY: BN [facility] Ongrbhhean2226 [facility] [id number] LDL/HDL Ratio 2.3 {ratio_units} (Normal) Range: 0.0-3.6 [...] deficiency Well Male Exam (V70.0) (Renamed from [facility] Male physical medicare and non medicare) : fall reduction handout Indication: Well Male Exam (V70.0) (Renamed from Well Male physical medicare and non medicare) Well Male Exam (V70.0) (Renamed from [facility] Male physical medicare and non medicare) : elderly packet given Indication: Well Male Exam (V70.0) (Renamed from [facility] Male physical medicare and non medicare) Well Male Exam (V70.0) (Renamed from [facility] Male physical medicare and non medicare) : advance planning information Indication: Well Male Exam (V70.0) (Renamed from [facility] Male physical medicare and non medicare) Current [...] Prediabetes Well Male Exam (V70.0) (Renamed from [facility] Male physical medicare and non medicare) : Follow up in 6 months Indication: Well Male Exam (V70.0) (Renamed from [facility] physical medicare and non medicare) Family history of colon cancer : *Colon Cancer Screening Indication: Family history of colon cancer Well Male Exam (V70.0) (Renamed from [facility] physical medicare and non medicare) : Eprescribed prescriptions (G8553) Indication: Well Male Exam (V70.0) (Renamed from [facility] physical medicare and non medicare) Hypertension : Diet, Exercise, and Wt loss Indication: Hypertension Hypertension : HTN/CAD Red Flags Indication: Hypertension Hypercholesteremia : *Cholesterol - Medication Side Effects Indication: Hypercholesteremia Hypercholesteremia : *Cholesterol - Nonprescription Treatment Indication: Hypercholesteremia Hypercholesteremia : Eprescribed prescriptions (G8553) Indication: Hypercholesteremia Planned Observations HgA1C , Office (07056)Indication: Abnormal glucose On: 89-Fio-076140:14 Request MICROALBUMIN: CREATININE RATIO (66538) AND (17803)Indication: Hypertension On: 62-Jfc-28302:51 Request URINALYSIS (51534)Indication: Hypertension On: :51 Request CBC WITH MANUAL DIFF (17478)Indication: Hypercholesteremia On: :51 Request Metabolic Panel, Comprehensive ([id number])Indication: Hypercholesteremia On: :51 Request Lipid Panel ([id number])Indication: Hypercholesteremia On: :51 Request D-Dimer ([id number])Indication: Cough On: 1-Naj-372713:03 Request Metabolic Panel, Comprehensive ([id number])Indication: Cough On: 2-Oxw-126362:02 Request BNTP ([id number])Indication: Cough On: 5-Whu-194010:02 Request CBC & PLATELETS (AUTO) ([id number])Indication: Cough On: 4-Lby-718343:58 Request MICROALBUMIN: CREATININE RATIO ([id number]) AND (46834)Indication: Hypertension On: 10-Bio-159060:16 Request PSA (PROSTATE SPECIFIC ANTIGEN) (V76.44)Indication: Hypertension On: 62-Cpg-657114:16 Request CALCIFEDIOL (58957)Indication: Hypertension On: 95-Gfq-961482:16 Request TSH (THYROID STIMULATING HORMONE) ([id number])Indication: Hypertension On: 15-Sui-940594:16 Request LIPID PANEL (21298)Indication: Hypertension On: 69-Oho-788142:15 Request METABOLIC PANEL, COMPREHENSIVE ([id number])Indication: Hypertension On: 50-Bse-024439:15 Request CBC, PLATELETS & AUT DIFF ([id number])Indication: Hypertension On: 82-Jav-194812:15 Request CBC WITH MANUAL DIFF ([id number])Indication: Polycythemia On: :21 Request IRON & TOTAL IRON BINDING CAPACITY ([id number])Indication: Polycythemia On: 20-Ecx-52208:21 Request FERRITIN ([id number])Indication: Polycythemia On: :21 Request Planned Encounters Medical; 6 Month FU - On: 24-Mar-2018 10:15 [facility] Fanta Gordon CNP, CNP, Mary E Planned Procedures B 12 Injection, 1000 mcg On: 21-Oct-2017 Intent (J3420)By: Evan MORRISON, Comments: [id number] immlong Fanta Cedeño CNP TDAP VACCINE >7 IM On: 18-Oct-2017 Intent ([id number])By: Evan PRINCEFnata CNP, Fanta Zayas SIX MINUTE WALK TEST On: 13-Oct-2017 Intent ([id number])By: Visit, Nurse Spirometry ([id number])By: On: 02-Aug-2017 Intent Evan PRINCE Fanta Gordon CNP, Fanta Zayas ELECTROCARDIOGRAM, On: 01-Apr-2017 Intent COMPLETE (ECG) ([id number])By: Shawandasalvatorefe MORRISON Fanta Gordon CNP, Fanta Zayas Aerosol Treatment On: 21-Jun-2016 Intent ([id number])By: Stanfe MORRISON Fanta Gordon CNP, Fanta Zayas Solu -Medrol Injection, On: 15-Jun-2016 Intent 125 mg ([id number])By: Evan Comments: solumedrollot:[id number]:10/09site:rt deltroute:IMdose:125mgD.KELLY Ma EDUCATIONAL PSYCHOLOGY TEACHER, Fanta Gordon CNP, Fanta Zayas Radiology - ChestBy: On: 14-Jun-2016 Intent Evan PRINCE Fanta Gordon Comments: call to [facility] doc senior oracle applications developer Fanta MORRISON Solu -Medrol Injection, On: 14-Jun-2016 Intent 125 mg ([id number])By: Evan Comments: Lot:[id number]:09/2018Dose:125mgRoute:im Site:[facility] By:NEGIN mills CNP Fanta Gordon CNP, Fanta Zayas Aerosol Treatment On: 14-Jun-2016 Intent ([id number])By: Evan MORRISON Fanta Gordon CNP, Vivienne Aerosol Treatment On: 23-Mar-2016 Intent ([id number])By: Hardeep Clark MD PULMONARY FUNCTION On: 23-Mar-2016 Intent TESTING (PFT) WITH SPIROMETRY ([id number])By: Hardeep Clark MD Spirometry ([id number])By: On: 23-Mar-2016 Intent Hardeep Clark MD Overnight Pulse OX On: 28-Mar-2015 Intent ([id number])By: Eduardo BRADFORD, Comments: no charge Hardeep PFT - CompleteBy: Eduardo On: 18-Mar-2015 Intent , Hardeep Overnight Pulse OX On: 18-Mar-2015 Intent ([id number])By: Eduardo BRADFORD, Comments: without oxygen Hardeep Planned [...] Cough Hypercholesteremia : DISCONTINUED - LIPID PANEL ([id number]) Indication: Hypercholesteremia Cough : How to access [...] The patient does have durable power of market research associate and living will. The patient has noticed lack of energy. Other providers contributing to the patient's care are mineral surveying technician (bhumi belle ([facility])) and assistant nurse manager (dr. cho). Note for Annual Medicare Exam: Here for annual medicare examEncounter Diagnosis: Current nonsmoker, BMI 29.0-29.9,adult, Well Male Exam (V70.0) (Renamed from Well Male physical medicare and non medicare), Encounter for screening for lipid disorder, Encounter for screening for other suspected endocrine disorder, COPD (chronic obstructive pulmonary disease), Need for Tdap vaccination (Renamed from Need for gocywjgxxr-pojdqsu-hdgtfkawd (Tdap) vaccine, adult/adolescent), Family history of Alzheimer's [...] following up for inc End: 21-Jun-2016 16:14 ralphe URI. Note for Follow up acute care [...] testing (unknown - would have been at [facility] ) and colonoscopy (2013). The patient does chase ve durable power of market research associate and living will. The patient has noticed nothing from the geriatic depression scale. Other providers contributing to the patient's care are mineral surveying technician (Dr Hoyos), gastr ologist ([facility] - Freddy or Brant did the scope- last colonoscopy was 2013 and told to repeat in 10 years) and other: (Eye [facility] Dr Nix[facility] [place]).Encounter Diagnosis: Well Male Exam (V70.0) (Renamed from [...] [facility] Payers [employer] Ins/MedicareTRANS Jamari Amos; a guarantor
--- OUTSIDE RECORDS SUMMARY | 2018-03-22 00:54 | XMS RPT_ITS | Continuity of Care Document ---
:1940 Author Organization [facility] Address [address] [place] [address] Phone Care Team Providers Name Role Phone Fanta Gordon CNP Unavailable Jamar Cho Unavailable Dr. Artemio Juarez Unavailable Dr. Danial Smalls Unavailable Farzana Lu Unavailable Unavailable Renetta Jimenez LPN Unavailable Unavailable Unavailable Unavailable Problems Name Dates Details Abdominal pain (R10.9, 789.00) Comments: with vomiting and general malaise, will workup GB, get labs, send to endoscopy, colonoscopy up to day is on xaralto Status: Active Afib (I48.91, 427.31) Comments: Continue Xarelto 20 mg and TOprol XL 25 mg Qd. Denies blood in stools black stools bleeding or bruising.Rate controlled.CArdiology :Irene galeas.Status postcardiac ablation in 2014. On Xarelto 20 mg at bedtime and metoprolol 25 mg once a day Status: Active B12 deficiency (E53.8, 266.2) Status: Active BMI 28.0-28.9,adult (Z68.28, V85.24) Status: Active BMI 28.0-28.9,adult (Z68.28, V85.24) Status: [...] at age 68.Colonoscopy according to John Sosa (CC) notes was in [address] Freddy siddiqi was recommended to get five-year colonoscopy.Colonscopy 07/01/15, hyperplastic polyp, tubular a adenoma, will get records to see when he needs repeat Status: Active Fatigue (R53.83, 780.79) Status: Active GERD (gastroesophageal reflux disease) (K21.9, [...] for Tdap vaccination (Renamed from Need for rzkwxgteos-zrvkrgz-eytvflnau (Tdap) vaccine, adult/adolescent) (Z23, V06.1) Status: Active Nocturia (R35.1, 788.43) Comments: Patient has to wake up twice in the middle of the night to go to the bathroom.Denies frequency, urgency, hesitancy, burning Status: Active KALYAN on CPAP (G47.33, 327.23) Comments: Reviewed the rsults from [facility] on 07/05 Moderate KALYAN which was exacerbated to a severe degree during REM sleep.Respiratory events were associated with significant oxygen desaturations (jasmina 82%) on ro om air. Done at [facility].Non compliant with CPAP mask Status: Active Polycythemia (D75.1, 238.4) Comments: hmg on 06-21 is 16.9per note from Dr Sosa 5..2014 Hb 18.2, repeat 16.8(04/08) Status: Active Prediabetes [...] history. Status: Active Medications Name Dates Details Align 4 MG Oral Capsule 1 (one) Capsule daily for 0 days Quantity: 14 {Capsule} Refills: 0 Ordered:24-Jan-2018 Fanta Gordon CNP, CNP, Mary E Start : 24-Jan-2018 Active cpap chin strap, use a night Active Comments:[facility] -- not sure who manages it [...] CNP, Mary E Start : 13-Oct-2017 Active Ramipril 5 MG Oral Capsule 1 (one) Capsule qd for 30 days Quantity: 30 {Capsule} Refills: 3 Ordered:24-Jan-2018 Fanta Gordon CNP, CNP, Mary E Start : 24-Jan-2018 End : 16-Sep-2015 Active Toprol XL 25 [...] 2000 UNIT Oral Capsule 1 (one) Capsule Capsule daily for 0 days Quantity: 30 {Capsule} Refills: 0 Ordered:24-Jan-2018 Farzana Lu Start : 21-Oct-2017 Active Xarelto 20 MG Oral Tablet 1 (one) Tablet qd with evening meal for 0 days Quantity: 90 {Tablet} Refills: 3 Ordered:01-Apr-2017 Fanta Gordon CNP, CNP, Mary E Start : 01-Apr-2017 Active Comments:on for about 1 year. Went in for hip surgery and discovered have AFib Zocor 40 MG Oral Tablet 1 (one) Tablet qhs for 0 days Quantity: 90 {Tablet} Refills: 3 Ordered:01-Apr-2017 Evan MORRISON Fanta Wu CNP Start : 01-Apr-2017 Active Zoloft 50 MG Oral Tablet 1 (one) Tablet qd for 30 days Quantity: 30 {Tablet} Refills: 3 Ordered:28-Nov-2017 Fanta Gordon CNP, CNP, Mary E Start : 28-Nov-2017 Active Altace 5 MG Oral Capsule 1 (one) Capsule qd for 90 days Quantity: 90 {Capsule} Refills: 0 Ordered:26-Sep-2017 Fanta Gordon CNP, CNP, Mary E Start : 26-Sep-2017 End : 25-Dec-2017 Inactive [...] days Quantity: 10 {Tablet} Refills: 1 Ordered:14-Jun-2016 Renetta Jimenez LPN Start : 16-Mar-2016 End : 14-Jun-2016 Discontinued Mucinex 600 MG Oral Tablet Extended Release 12 Hour 1 (one) Tablet ER 12HR Tablet ER 12HR bid for 0 days Quantity: 30 {Tablet} Refills: 0 Ordered:23-Jul-2016 Renetta Jimenez LPN Start : 21-Jun-2016 End : 23-Jul-2016 Discontinued PredniSONE 10 MG (21) Oral Tablet Therapy Pack 1 (one) Tab Ther Pack UAD for 0 days Quantity: 1 {Package} Refills: 0 Ordered:21-Jun-2016 Renetta Jimenez LPN Start : 14-Jun-2016 End : 21-Jun-2016 Discontinued Zithromax Z-Kd 250 MG Oral Tablet 1 (one) Tablet 2 tablets at once, then 1 daily for 9 days for 10 days Quantity: 11 {Tablet} Refills: 0 Ordered:21-Jun-2016 Renetta Jimenez LPN Start : 14-Jun-2016 End : 21-Jun-2016 Discontinued Allergies and Adverse Reactions Name Dates Details No Allergy Information Available Status: Past Medical History Name Dates Details Abnormal CT of the chest (R93.89, 793.2) Comments: 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 , on Arsr3137 started with some SOB after buying old [...] Component, had blebs in past with penumothorax 1997spontaneuous pneumothorax 1996, with blebs chest tube Status: Inactive as of 02-Aug-2017 Cough (R05, 786.2) Comments: not improving with z pack, antibiotics, had prednisone, solumed, aerosol, chest xray showing bilateral perihilar thickening, chronic interstitial changes on xray, aerosols Seen again 06-15-16 with refe rashaun Irmamichael, July 23 unresolvedHad penicillin from dentist and [...] Sleep Study Completed Comments: 07.26.2014 [facility] tel [id number] f [id number] Tonsilectomy Completed US thryoid wnl [facility] 10.31.12 Completed Date Value Details 23-Jun-2016 Emergency Department Summary Result: Comments: See Note; NOTES: [facility] Medical Records Department [address] [place] [address] Emergency Department Summary MR#: [id number] Acct: [id number] Name: SHARON AMOS #: [id number] : 1940 75 From: Tiffanie Emanuel MD PCP: Gwen Kendrick DO Status: [facility] ER DATE OF SERVICE: 06/21/2016 CHIEF COMPLAINT: [...] ension. Tiffanie Emanuel MD T: NTS JOB: [id number] 06/23/16 0736 <Electronically signed by Tiffanie Emanuel MD> Date Tiffanie Emanuel MD Cosigner Signature (If Indicated): Date CC: Gwen Kendrick DO Date Dictated: 06/21/162350 Date Transcribed: 06/21/162350 [place]: Signed 21-Jun-2016 Discharge Instruction Result: Comments: See Note; NOTES: [facility] Medical Records Department [address] [place] [address] Discharge Instruction 06/21/162348 MR#: [id number] Acct: [id number] Name: Bhumi AMOS Rep #: [id number] : 1940 75 From: Tiffanie Emanuel MD [...] problems, contact your Primary Care Provider. Call [facility] ([phone]) or report to the closest Emergency Room. Call 911 if necessary. 06/21/16 2 350 <Electronically signed by Tiffanie Emanuel MD> Date Tiffanie Emanuel MD Cosigner Signature (If Indicated): Date CC: Gwen Kendrick DO 21-Jun-2016 CTA Chest W/WO Contrast Result: Comments: See Note; NOTES: [facility] Imaging Services [address] [place] [address] Verdana 4d CTA Chest W/WO Contrast MR#: [id number] Acct: [id number] Name: IRENE AMOS Rep #: [id number] : 1940 M 75 From: Lasha Blackmon MD PCP: Gwen Kendrick DO Status: REG ER Study: CTA Chest W/WO Contrast Date of Exam: 06/21/16 Exam# [id number] Ordering Dr: Tiffanie Emanuel MDDY: CTA CHEST [...] MD at 23:19 EDT , Service support [phone], CC: Gwen Kendrick DO; Tiffanie Emanuel MD [place]: Signed 14-Jun-2016 Chest PA and Lateral Result: Comments: See Note; NOTES: [facility] Imaging Services [address] [place] [address] Verdana 4d Chest PA and Lateral MR#: [id number] Acct: [id number] Name: IRENE AMOS Rep #: [id number] : 1940 M 75 From: Lasha Blackmon MD PCP: Fanta Gordon Status: REG CLI Study: Chest PA and Lateral Date of Exam: 06/14/16 Exam# [id number] Ordering Dr: Fanta Gordon STUDY: X-RAY CH [...] , Service support , CC: Fanta Gordon [place]: Signed 03-Nov-2015 12 Lead Electrocardiogram Result: Comments: See Note; NOTES: [facility] Cardiovascular Services [address] [place] [address] 12 Lead EKG 10/29/156 MR#: [id number] Acct: [id number] Name: IRENE AMOS ep #: [id number] : 1940 75 From: Flavio Miller MD Attending Dr: Status: DEP ER Ordering Dr: Venu Padgett MD Date: 10/29/15 [...] normal ECG Confirmed by FLAVIO MILLER ([id number]), senior editor CRISTY GILMORE ([id number]) on 11/03/2015 2:00:06 PM Referred By: DASH Confirmed By:FLAVIO MILLER 11/03/15 1400 Date ___ Flavio Miller MD CC: Hardeep Clark Date Dictated: 10/29/151555 Date Transcribed: 10/29/151555 [place]: Signed 31-Oct-2015 Emergency Department Summary Result: Comments: See Note; NOTES: [facility] Medical Records Department [address] [place] [address] Emergency Department Summary MR#: [id number] Acct: [id number] Name: CHEYANNE AMOS AM Honorio Rep #: [id number] : 1940 75 From: Venu Padgett MD PCP: Hardeep Clark Status: DEP ER DATE OF SERVICE: 10/29/2015 METHOD OF ARRIVAL: Private car. CHIEF COMPLAINT: Palpitations and anxio us. HISTORY OF PRESENT ILLNESS: A 75-year-old male, patient of Dr. Clark as well as Dr. Hoyos, who had an ablation for atrial fibrillation at [facility] 13 months ago. He states 1 [...] Barbie Bustillos C: Irene Hoyos Eduardo T: SATISH JOB: [id number] 10/31/15 0803 <Electronically si gned by Venu Padgett MD> Date Venu Padgett MD Cosigner Signature (If Indicated): Date CC: Hardeep Clark; IRENE HOYOS Date Dictated: 10/29/152321 Date Transcribed: 10/29/152321 [place]: Signed 29-Oct-2015 Discharge Instruction Result: Comments: See Note; NOTES: [facility] Medical Records Department [address] [place] [address] Discharge Instruction 10/29/15 1607 MR#: [id number] Acct: [id number] Name: IRENE AMOS Rep #: [id number] : 1940 75 From: Venu Padgett MD [...] problems, contact your doctor. Call [facility] ([phone]) or report to the closest Emergency Room. Call 911 if necessary. 10/29/152240 <Electronically signed by Venu Padgett MD> Date Venu Padgett MD Cosigner Signature (If Indicated): Date CC: Hardeep Clark 16-Apr-2015 Pulmonary Function Test Result: Comments: See Note; NOTES: [facility] Pulmonary Services/Neurology [address] [place] [address] Pulmonary Function Test (Comp) MR#: [id number] Acct: [id number] Nam e: IRENE AMOS Rep #: [id number] : 1940 74 From: Jamar Cho MD Referring Dr: Hardeep Clark Status: REG CLI Ordering Dr: Hardeep Clark Date: 04/04/15 Location: [facility] Sex: Rosalio C 6 1127 <Electronically signed by Jamar Cho MD> Date Jamar Cho MD CC: Hardeep Clark; Jamar Cho MD Date Dictated: 0 04/09/15 Date Transcribed: 04/09/15 1433 [place]: LSA Signed 09-Apr-2015 ELECTROCARDIOGRAM, COMPLETE (ECG) (93223) Result: [MEASUREMENTS ANALYSIS] Date of Test: 04/09/2015 10:34:22; Heart Rate: 82; MD Interval: 128; QRS: 95; QT Interval: 364; Corrected QT Interval (QTc): 402; P Wave [place]: 90; QRS Wave [place]: 59; T Wave [place]: 58; Blood Pressure: 148/86 [ECG DIAGNOSTIC STATEMENTS] [...] Active Vital Signs Date Test Result Details 1-Fva-638054:37 Temperature 96.5 f Comments: Method: Temporal Pulse 70 /min Comments: Pattern: Regular Respiration Rate 16 /min Comments: Pattern: Unlabored O2 SAT 92 % Comments: Room air BP Systolic 130 mm[Hg] Comments: Patient Position: Sitting; Cuff Location: Left Arm; Cuff Size: Standard BP Diastolic 84 mm[Hg] Comments: Patient Position: Sitting; Cuff Location: Left Arm; Cuff Size: Standard Weight 189.125 lb Height 68 in Body Mass Index Calculated 28.76 kg/m2 Body Surface Area Calculated 2 m2 :50 Temperature 97 f Comments: Method: Temporal Pulse [...] kg/m2 Body Surface Area Calculated 2.01 m2 :39 Temperature 97 f Comments: Method: Temporal Pulse [...] kg/m2 Body Surface Area Calculated 2.01 m2 57-Kiy-849386:20 Comments: after - sly scale 13 Pulse [...] kg/m2 Body Surface Area Calculated 2.01 m2 36-Xlj-321999:18 Comments: before -- sly scale 9 Pulse [...] kg/m2 Body Surface Area Calculated 2.01 m2 5-Qle-595205:38 Temperature 97.5 f Pulse 68 /min Comments: [...] 2.02 m2 Results Date Description Value Details :16 VITAMIN B12 AND FOLATES Comments: PATIENT WAS FASTINGPERFORMED BY: [employer] [facility] [id number] (11827) Folate (Folic Acid), Serum 10.5 ng/mL (Normal) Comments: A serum folate concentration of less than 3.1 ng/mL isconsidered to represent clinical deficiency. Vitamin B12 342 pg/mL (Normal) Range: 232-1245 :16 CALCIFEDIOL (38154) Comments: PATIENT WAS FASTINGPERFORMED BY: Vdopia6370 [facility] [id number] Vitamin D, 25-Hydroxy 29.3 ng/mL (Abnormal) Range: 30.0-100.0 Comments: Vitamin D deficiency has been defined by the [place] ofMedicine and an Endocrine Society practice guideline as alevel of serum 25-OH vitamin D less than 20 ng/mL (1,2).The Endocrine Society went on to further define vitamin Dinsufficiency as a level between 21 and 29 ng/mL (2).1. IOM ([place] of Medicine). 2010. Dietary reference intakes for calcium and D. [place]: The National Academies Press.2. Ramiro MF, Chelle NC, Karen CHASE, et al. Evaluation, treatment, and prevention of vitamin D deficiency: an Endocrine Society clinical practice guideline. JCEM. 2010; 96(7):1911-30. :16 Metabolic Panel, Comprehensive Comments: PATIENT WAS FASTINGPERFORMED BY: [employer] [facility] [id number] (98165) ALT (SGPT) 29 [iU]/L (Normal) Range: 0-44 [...] 8-27 Glucose 86 mg/dL (Normal) Range: 65-99 20-Dpq-850129:16 TSH (THYROID STIMULATING Comments: PATIENT WAS FASTINGPERFORMED BY: [employer] Rabddv8311 [facility] [id number] HORMONE) (84450) TSH 0.661 {uIU/mL} (Normal) Range: 0.450-4.500 56-Ztf-997567:16 LIPID PANEL (35620) Comments: PATIENT WAS FASTINGPERFORMED BY: [employer] Motion TechnologiesCape Regional Medical CenterIuhuoe9160 [facility] [id number] LDL/HDL Ratio 2.2 {ratio} (Normal) Range: 0.0-3.6 Comments: LDL/HDL Ratio Men Women 1/2 Avg.Risk 1.0 1.5 Av g.Risk 3.6 3.2 2X Avg.Risk 6.2 5.0 3X Avg.Risk 8.0 6.1 LDL Cholesterol Calc 81 mg/dL (Normal) Range: 0-99 VLDL Cholesterol Neville 31 mg/dL (Normal) Range: 5-40 HDL Cholesterol 37 mg/dL (Abnormal) Triglycerides 155 mg/dL (Abnormal) Range: 0-149 Cholesterol, Total 149 mg/dL (Normal) Range: 100-199 :28 PSA (PROSTATE SPECIFIC Comments: PATIENT NOT FASTINGPERFORMED BY: Vdopia6370 [facility] [id number] ANTIGEN) (V76.44) Prostate Specific Ag, 1.2 ng/mL (Normal) Range: 0.0-4.0 Serum Comments: BabelwayIA methodology. .According to the [place] Urological Association, Serum PSA shoulddecrease and remain at undetectable levels after radicalprostatectomy. The AUA defines biochemical recurrence as an initialPSA value 0.2 ng/mL or greater followed by a subsequent confirmatoryPSA value 0.2 ng/mL or greater.Values obtained with d ifferent assay methods or kits cannot be usedinterchangeably. Results cannot be interpreted as absolute evidenceof the presence or absence of malignant disease. 8-Dgi-224303:01 MICROALBUMIN: CREATININE RATIO Comments: PATIENT WAS FASTINGPERFORMED BY: Vdopia6370 [facility] [id number] (98884) AND (94851) Alb/Creat Ratio <8.0 {mg/g_creat} (Normal) Range: 0.0-30.0 Albumin, Urine <3.0 ug/mL (Normal) Creatinine, Urine 37.5 mg/dL (Normal) 4-Dal-309473:01 URINALYSIS (01877) Comments: PATIENT WAS FASTINGPERFORMED BY: Vdopia6370 [facility] [id number] Microscopic Examination MICNIP (Normal) Comments: Microscopic not indicated and not performed. Nitrite, Urine Negative (Normal) Urobilinogen,Semi-Qn 0.2 mg/dL (Normal) Range: 0.2-1.0 Bilirubin Negative (Normal) Occult Blood Negative (Normal) Ketones Negative (Normal) Glucose Negative (Normal) Protein Negative (Normal) WBC Esterase Negative (Normal) Appearance Clear (Normal) Urine-Color Yellow (Normal) pH 6.0 (Normal) Range: 5.0-7.5 Specific [place] 1.011 (Normal) Range: 1.005-1.030 :01 CBC, Platelets & Auto Diff Comments: PATIENT WAS FASTINGPERFORMED BY: LabCoC[facility] Medical CenterUkdaqr6084 [facility] [id number] (92720) Immature Grans (Abs) 0.0 {x10E3/uL} (Normal) Range: [...] 4.14-5.80 WBC 6.7 {x10E3/uL} (Normal) Range: 3.4-10.8 3-Xlb-038877:01 Metabolic Panel, Comprehensive Comments: PATIENT WAS FASTINGPERFORMED BY: [facility]CoC[facility] CenterQdyqid3437 [facility] [id number] (67012) ALT (SGPT) 34 [iU]/L (Normal) Range: 0-44 [...] Glucose, Serum 82 mg/dL (Normal) Range: 65-99 3-Qic-150874:21 HgA1C , Office (22864) Comments: 5.4 HgA1C , Office 5.4 % (Normal) Range: 4.6 - 7.1 3-Nwr-684046:01 LIPID PANEL (44755) Comments: PATIENT WAS FASTINGPERFORMED BY: [facility]Co[facility] CenterPyxmsa7933 [facility] [id number] LDL/HDL Ratio 2.4 {ratio_units} (Normal) Range: 0.0-3.6 Comments: LDL/HDL Ratio Men Women 1/2 Avg.Risk 1.0 1.5 Av g.Risk 3.6 3.2 2X Avg.Risk 6.2 5.0 3X Avg.Risk 8.0 6.1 LDL Cholesterol Calc 102 mg/dL (Abnormal) Range: 0-99 VLDL Cholesterol Neville 22 mg/dL (Normal) Range: 5-40 HDL Cholesterol 42 mg/dL (Normal) Triglycerides 111 mg/dL (Normal) Range: 0-149 Cholesterol, Total 166 mg/dL (Normal) Range: 100-199 7-Yhh-829289:20 Blood Glucose , Office (81251) Blood Glucose , Office 111 (Normal) 36-Ymh-915330:14 CBC, Platelets & Auto Diff Comments: repeat July 05; PATIENT NOT FASTINGPERFORMED BY: [facility] Awnxsw2612 [facility] [id number] (24026) Immature Grans (Abs) 0.0 {x10E3/uL} (Normal) Range: [...] 4.14-5.80 WBC 5.9 {x10E3/uL} (Normal) Range: 3.4-10.8 6-Ubr-408823:32 BNP,B-Type NATRIURETIC PEPTIDE Comments: [facility] [address] [place], [place], [address] B-TYPE BIRD PEP 8.5 pg/mL (Normal) Range: 0-100 3-Lrv-968232:32 CBC W/Diff, Automated Comments: [facility] [address] [place], [place], [id number] Absolute Lymph 2.84 {X10_3/ul} (Normal) Range: 0.83-4.51 [...] 4.6-6.2 WBC 11.8 K/mm3 (Abnormal) Range: 4.4-11.0 6-Qyx-896963:32 Comprehensive Metabolic Profil Comments: [facility] [address] [place], [place], [address] GAP 7 (Normal) Range: 5-15 CO2 30.0 [...] 7-18 GLU 84 mg/dL (Normal) Range: 70-110 7-Wdg-876815:32 D-Dimer Quantitative (DVT/PE) Comments: [facility] [address] [place], [place], [address] D-DIMER QUANT 1.10 {FEU/ug/m} (Abnormal) Range: 0.27-0.49 Comments: D-Dimer ELEVATED (>0.49): Additional studies and clinicalassessments are indicated to conclude diagnosis of:Deep Vein Thrombosis (DVT) or Pulmonary Embolism (PE)CRITICAL VALUE VERIFIED. CALLED TO DR KENDRICK06/21/16 6183 Katelyn Holland.RESULTS READ BACK BY SAME . :40 Sputum Culture (60907) Comments: PATIENT NOT FASTINGPERFORMED BY: RALPH [facility] Yfccey[address] [place] [id number] Information: SRC:SP Result 1 RRF (Normal) Comments: Routine respiratory nelly Lower Respiratory Culture Final report (Normal) 10-Vjw-743564:15 Rapid Flu (06133 x 2) Comments: neg Influenza A Ag neg a and b (Normal) :17 HgA1C , Office (35787) HgA1C , Office 5.6 % (Normal) Range: 4.6 - 7.1 :17 Blood Glucose , Office (59668) Blood Glucose , Office 108 (Normal) 64-Spb-585506:00 COLON BIOPSY (CHOOSE See Note (Normal) Comments: [facility] [address] [place], [address] SITE) Comments: Patient: IRENE AMOS : 1940 (74/M) Acct Num: [id number] Phys: Artemio Juarez Unit Num: [id number] Loc: LABSPEC Specimen: [id number] Received: 07/01/151616 Spec Type: COLON BX TISSUES [...] in one cassette. / ALFREDO:alphonso 07/02/15 TC:1 CPT:18832 x2 HEADER OPERATION: Colonoscopy with biopsy PRE-OP DIAGNOSIS: High risk screening / polyp TISSUE SUBMITTED: A - Polyp right colon, rule out adenoma, B - Sigmoid polyp, rule out adenoma MICROSCO PIC DESCRIPTION Slides are reviewed. MICROSCOPIC DIAGNOSIS A. Polyp, right colon, biopsy: Fragments of hyperplastic polyp. B. Sigmoid polyp, biopsy: Tubular adenoma. SJ:alphonso 02/05 Signed Kelvin Boland 07/03/15 <signature on file> :18 Urinalysis, Office (24341) UA - LEUKOCYTE ESTERASE Negative (Normal) UA - NITRITE Negative (Normal) URINE UROBILINGN DYLAN TIMED Normal mg/dL (Normal) UA - PROTEIN Negative mg/dL (Normal) UA - PH 6.5 (Normal) UA - BLOOD Negative (Normal) UA - SPECIFIC GRAVITY 1.015 (Normal) UA - KETONES Negative mg/dL (Normal) UA - BILIRUBIN Negative (Normal) UA - GLUCOSE Negative (Normal) :02 MAGNESIUM (79692) Comments: PATIENT WAS FASTINGPERFORMED BY: [employer] [facility] [id number] BY: Akella[address] [id number] Magnesium, Serum 1.9 mg/dL (Normal) Range: 1.6-2.3 6-Bga-546070:02 Hemoglobin Glyclated (HGB Comments: PATIENT WAS FASTINGPERFORMED BY: [facility] Partnerslin6370 [facility] [id number] BY: Akella[address] [id number] A1C) (74190) Hemoglobin A1c 5.8 % (Abnormal) Range: 4.8-5.6 Comments: . Pre-diabetes: 5.7 - 6.4 Diabetes: >6.4 Glycemic control for adults with diabetes: <7.0 9-Zzy-943365:02 Vitamin B-12 (cyanocobalamin) Comments: PATIENT WAS FASTINGPERFORMED BY: [facility] Partnerslin6370 [facility] [id number] BY: [address] [id number] (21080) Vitamin B12 339 pg/mL (Normal) Range: 211-946 :02 VITAMIN D, 1, 25-DIHYDROXY Comments: PATIENT WAS FASTINGPERFORMED BY: [facility] Gvtqrt7165 [facility] [place] [id number] BY: [employer] [id number] (56627) Calcitriol(1,25 di-OH Vit D) 48.3 pg/mL (Normal) Range: 19.9-79.3 :02 TSH (THYROID STIMULATING Comments: PATIENT WAS FASTINGPERFORMED BY: [facility] Wibkbi1597 [facility] [place] [id number] BY: [employer] [id number] HORMONE) (52366) TSH 0.656 {uIU/mL} (Normal) Range: 0.450-4.500 : PSA (Medicare - G0103) Comments: PATIENT WAS FASTINGPERFORMED BY: [facility] LabOn-Ramp Wirelessrp Eyiqpt9719 [facility] [place] [id number] BY: [employer] [id number] (24164) Prostate Specific Ag, 0.9 ng/mL (Normal) Range: 0.0-4.0 Serum Comments: Brissa ECLIA methodology. .According to the [place] Urological Association, Serum PSA shoulddecrease and remain at undetectable levels after radicalprostatectomy. The AUA defines biochemical recurrence as an initialPSA value 0.2 ng/mL or greater followed by a subsequent confirmatoryPSA value 0.2 ng/mL or greater.Values obtained with d ifferent assay methods or kits cannot be usedinterchangeably. Results cannot be interpreted as absolute evidenceof the presence or absence of malignant disease. :02 METABOLIC PANEL, Comments: PATIENT WAS FASTINGPERFORMED BY: [facility] Hsxbtk9620 [facility] SurgeryD[facility] [place] [id number] BY: [address] [id number] COMPREHENSIVE (00317) ALT (SGPT) 22 [iU]/L (Normal) Range: 0-44 [...] Glucose, Serum 87 mg/dL (Normal) Range: 65-99 5-Oyy-084506:02 CBC, PLATELETS & AUT DIFF Comments: PATIENT WAS FASTINGPERFORMED BY: CB [facility] Crapnc5050 [facility] [id number] BY: BN [facility] [address] [id number] Information: 360851,[id number] (12440) Immature Grans (Abs) 0.0 {x10E3/uL} (Normal) Range: [...] 4.14-5.80 WBC 6.1 {x10E3/uL} (Normal) Range: 3.4-10.8 7-Oga-514215:02 LIPID PANEL (47741) Comments: PATIENT WAS FASTINGPERFORMED BY: CB [facility] Mhkkyr8162 [facility] [id number] BY: [facility] [address] [id number] LDL/HDL Ratio 2.3 {ratio_units} (Normal) Range: 0.0-3.6 [...] Plan of Care Name Dates Details Instructions BMI 28.0-28.9,adult : Follow up - Make appt after diagnostic tests Indication: BMI 28.0-28.9,adult Current nonsmoker : Eprescribed prescriptions (G8553) Indication: Current nonsmoker Current nonsmoker : Follow up in 6 [...] Prediabetes Well Male Exam (V70.0) (Renamed from [facility] Male physical medicare and non medicare) : Follow up in 6 months Indication: Well Male Exam (V70.0) (Renamed from [facility] Male physical medicare and non medicare) Family history of colon cancer : *Colon Cancer Screening Indication: Family history of colon cancer Well Male Exam (V70.0) (Renamed from [facility] Male physical medicare and non medicare) : Eprescribed prescriptions (G8553) Indication: Well Male Exam (V70.0) (Renamed from [facility] Male physical medicare and non medicare) Hypertension : Diet, Exercise, and Wt loss Indication: Hypertension Hypertension : HTN/CAD Red Flags Indication: Hypertension Hypercholesteremia : *Cholesterol - Medication Side Effects Indication: Hypercholesteremia Hypercholesteremia : *Cholesterol - Nonprescription Treatment Indication: Hypercholesteremia Hypercholesteremia : Eprescribed prescriptions (G8553) Indication: Hypercholesteremia Planned Observations MAGNESIUM (96501)Indication: Fatigue On: :23 Request HELICO PYLORI, STOOL, INFCT ANTIGEN (38094)Indication: Abdominal pain On: :18 Request VITAMIN B12 AND FOLATES (18822)Indication: B12 deficiency On: 5-Rmj-437359:11 Request CALCIFEDIOL (05920)Indication: Vitamin D deficiency On: 2-Fgz-970096:11 Request TSH (88328)Indication: Fatigue On: 2-Lvu-096324:10 Request CBC, Platelets & Auto Diff (58436)Indication: Abdominal pain On: 4-Owo-067981:10 Request Metabolic Panel, Comprehensive (33933)Indication: Abdominal pain On: 6-Uja-072786:10 Request HgA1C , Office (03437)Indication: Abnormal glucose On: 98-Gtu-834123:14 Request MICROALBUMIN: CREATININE RATIO (78389) AND (62357)Indication: Hypertension On: 70-Fjc-01367:51 Request URINALYSIS (78276)Indication: Hypertension On: :51 Request CBC WITH MANUAL DIFF (34725)Indication: Hypercholesteremia On: 48-Hnu-14099:51 Request Metabolic Panel, Comprehensive (48291)Indication: Hypercholesteremia On: :51 Request Lipid Panel (21630)Indication: Hypercholesteremia On: 05-Xok-42319:51 Request D-Dimer (33215)Indication: Cough On: 2-Zuf-175270:03 Request Metabolic Panel, Comprehensive (77082)Indication: Cough On: 4-Bem-403469:02 Request BNTP (63353)Indication: Cough On: 5-Ksr-179504:02 Request CBC & PLATELETS (AUTO) (76167)Indication: Cough On: 0-Ufa-074516:58 Request MICROALBUMIN: CREATININE RATIO (51939) AND (07764)Indication: Hypertension On: 17-Qhd-023034:16 Request PSA (PROSTATE SPECIFIC ANTIGEN) (V76.44)Indication: Hypertension On: 06-Gdx-906051:16 Request CALCIFEDIOL (26112)Indication: Hypertension On: 15-Jwx-086825:16 Request TSH (THYROID STIMULATING HORMONE) (60716)Indication: Hypertension On: 88-Zil-589935:16 Request LIPID PANEL (12343)Indication: Hypertension On: 85-Den-200245:15 Request METABOLIC PANEL, COMPREHENSIVE (34274)Indication: Hypertension On: 49-Oew-540718:15 Request CBC, PLATELETS & AUT DIFF (61667)Indication: Hypertension On: 65-Yee-885115:15 Request CBC WITH MANUAL DIFF (26104)Indication: Polycythemia On: 52-Olz-68496:21 Request IRON & TOTAL IRON BINDING CAPACITY (88270)Indication: Polycythemia On: 75-Pjr-92246:21 Request FERRITIN (71570)Indication: Polycythemia On: 93-Atp-39371:21 Request Planned Procedures Ultrasound - Abdomen CompleteBy: On: 24-Jan-2018 Intent Fanta Gordon CNP, CNP, Mary E Ultrasound - GallbladderBy: Evan On: 24-Jan-2018 Intent Fanta MORRISON CNP, Mary E B 12 Injection, 1000 mcg (J3420)By: On: 21-Oct-2017 Intent Fanta Gordon CNP, CNP, Mary E Comments: [id number]/mlldltd immlong TDAP VACCINE >7 IM (93945)By: Evan On: 18-Oct-2017 Intent PRINCE VivienneChana Gordon CNP Fanta Zayas SIX MINUTE WALK TEST (32371)By: On: 13-Oct-2017 Intent Visit, Nurse Spirometry (51393)By: Evan MORRISON, On: 02-Aug-2017 Intent VivienneChana Gordon CNP Vivienne ELECTROCARDIOGRAM, COMPLETE (ECG) On: 01-Apr-2017 Intent (31151)By: Fanta Gordon CNP, CNP Vivienne Aerosol Treatment (90420)By: Evan On: 21-Jun-2016 Miles MORRISON VivienneChana Gordon CNP Fanta Zayas Solu -Medrol Injection, 125 mg On: 15-Jun-2016 Intent (J2930)By: Fanta Gordon CNP Comments: solumedrollot:[id number]:10/09site:rt deltroute:IMdose:125mgD.KELLY Ma CNP Vivienne Radiology - ChestBy: Evan MORRISON Fanta On: 14-Jun-2016 Intent E Evan MORRISON Vivienne Comments: call to [facility] doc electrical control assembler Solu -Medrol Injection, 125 mg On: 14-Jun-2016 Intent (J2930)By: Fanta Gordon CNP Comments: Lot:[id number]:09/2018Dose:125mgRoute:im Site:r [facility] By:NEGIN lai CNP Vivienne Aerosol Treatment (99106)By: Evan On: 14-Jun-2016 Intent PRINCE VivienneChana Gordon CNP Vivienne Aerosol Treatment (39873)By: Eduardo On: 23-Mar-2016 Intent Hardeep BRADFORD PULMONARY FUNCTION TESTING (PFT) On: 23-Mar-2016 Intent WITH SPIROMETRY (09182)By: Hardeep Clark MD Spirometry (02252)By: Eduardo BRADFORD, On: 23-Mar-2016 Intent Hardeep Overnight Pulse OX (07952)By: Eduardo On: 28-Mar-2015 Intent Hardeep BRADFORD Comments: no charge PFT - CompleteBy: Hardeep Clark MD On: 18-Mar-2015 Intent Overnight Pulse OX (97597)By: Eduardo On: 18-Mar-2015 Intent Hardeep BRADFORD Comments: without oxygen Planned Medications INJECTION, METHYLPREDNISOLONE SODIUM SUCCINATE, UP [...] Cough Hypercholesteremia : DISCONTINUED - LIPID PANEL (14649) Indication: Hypercholesteremia Cough : How to access [...] Instructions Indication: Hypercholesteremia Encounters Office Visit On: 24-Jan-2018 10:37 Encounter Reason: Vomiting - Symptoms include nausea and vomiting. Onset was 3 week(s) ago. Symptoms are exacerbated by eating. Associated symptoms include diarrhea. Note for Vomiting: stomach cramping, End: 24-Jan-2018 11:26 [ADDITIONAL REASON] Abdominal pain - Note for Pain: Abdominal cramping after eating BW 3 weeks ago, stomach cramping before that . Diarrhea, nauseated, on Thanksgiving had green onion and vomited. Chase s been on prevacid and can tell if does not take it. Encounter Diagnosis: Current nonsmoker, BMI 28.0-28.9,adult, Abdominal pain, Vitamin D deficiency, B12 deficiency, GERD (gastroesophageal reflux disease), Fatigue Comprehensive Internal Medicine Office Visit On: 21-Oct-2017 10:49 Encounter Reason: [...] The patient does have durable power of energy attorney and living will. The patient has noticed lack of energy. Other providers contributing to the patient's care are mobile security specialist (bhumi belle ([facility])) and transmission design engineer (dr. cho). Note for Annual Medicare Exam: Here for annual medicare examEncounter Diagnosis: Current nonsmoker, BMI 29.0-29.9,adult, Well Male Exam (V70.0) (Renamed from Well Male physical medicare and non medicare), Encounter for screening for lipid disorder, Encounter for screening for other suspected endocrine disorder, COPD (chronic obstructive pulmonary disease), Need for Tdap vaccination (Renamed from Need for jbvbguwawh-mtnblxq-zgegwjbbo (Tdap) vaccine, adult/adolescent), Family history of Alzheimer's [...] testing (unknown - would have been at [facility] ) and colonoscopy (2013). The patient does chase ve durable power of energy attorney and living will. The patient has noticed nothing from the geriatic depression scale. Other providers contributing to the patient's care are mobile security specialist (Dr Hoyos), gastr ologist ([facility] - Freddy or Brant did the scope- last colonoscopy was 2013 and told to repeat in 10 years) and other: ([facility] - Dr Nix, [facility] L[facility]).Encounter Diagnosis: Well Male Exam (V70.0) (Renamed [...]
--- OUTSIDE RECORDS SUMMARY | 2018-03-22 00:54 | XMS RPT_ITS ---
:1940 Author Organization [facility]IP Care Team Providers Name Role Phone ADAM DE JESUS Attending Unavailable ADAM DE JESUS Referring Unavailable Fanta Gordon Attending Unavailable Hardeep Clark MD Referring Unavailable Fanta Gordon Consulting Unavailable Fanta Gordon Attending Unavailable Fanta Gordon Referring Unavailable Fanta Gordon Primary Care Unavailable Purpose Purpose PROBLEMS PROBLEMS DATE TYPE CONDITION / ATTENDING STATUS SOURCE CODE 06/24/2017 Admitting Follow-up / IntraOp MedicalTaskmit Diagnosis 145() [facility] ([place]) Repository 06/24/2017 Admitting Dyspnea On Avvo Diagnosis Exertion / [facility] ([place]) 271() Repository PROCEDURES PROCEDURES No Procedure Records FoundVITAL SIGNS VITAL SIGNS No Vital Signs Records FoundRESULTS RESULTS ABDOMEN COMPLETE Observed: 02/03/2018 Status: F Source: [place] 10:[address] [facility] REPOSITORY [facility] Imaging Services [address] [place] [address] Abdomen Complete MR#: [id number] Acct: [id number] Name: ADAM REYNA Rep #: [id number] : 1940 M 77 From: Palomo Marley MD PCP: Fanta Gordon NP Status: REG CLI Study: Abdomen Complete Date of Exam: 02/03/18 Exam# [id number] Ordering Dr: Fanta Gordon UNIVERSITY TUTOR-C STUDY: ABDOMINAL ULTRASOUND REASON FOR EXAM: Male, 77 years old. Intermittent nausea, vomiting, cramping with generalized abdominal pain TECHNIQUE: Transabdominal ultrasound was performed with real-time and static dudley scale imaging. TECHNICAL QUALITY: Adequate. COMPARISON: None. FINDINGS: Liver: The liver measures 15.3 cm. There is normal echogenicity of the liver. The bile ducts are within normal limits. There is hepatic color flow. The direction of portal flow is hepatopetal. There is no demonstrated mass lesion. Portal vein measurement: Gallbladder: Normal distended gallbladder. The gallbladder wall measures 2.2 mm. There is a negative sonographic Hayes's sign. There is no pericholecystic fluid. There are no gallstones. Common Bile Duct (C.B.D.): The common bile duct measures 4.2 mm. Pancreas: There is normal echogenicity of the pancreas. There is no demonstrated pancreatic mass or cyst. Spleen: Normal size of the spleen. The spleen measures 9.8 cm. There are granulomas calcifications of the spleen. Right Kidney: Normal size of the right kidney. The right kidney measures 9.5 cm. Normal renal cortex. The right cortex measures 1.9 cm. There is no demonstrated renal mass or cyst. There is no right hydronephrosis. Left Kidney: Normal size of the left kidney. The left kidney measures 10.2 cm. Normal renal cortex. The left cortex measures 1.3 cm. There is no demonstrated renal mass or cyst. There is no left hydronephrosis. Aorta: Mild atherosclerosis. No evidence of aneurysm. I.V.C.: The IVC is patent. There is no ascites. US/Abdomen Complete IMPRESSION: Normal abdominal ultrasound examination. Electronically Signed: Palomo Marley MD at 16:21 EST , Service support , CC: Fanta Gordon NP Smoking Pipe Repairer: Signed ALLERGIES ALLERGIES DATE TYPE / CODE NAME / CODE REACTION SEVERITY SOURCE 12/12/2014 Miscellaneous Thorazine Other [place] Allergy/[id number]( [facility] SNOMED CT) Hospital Repository 12/12/2014 Miscellaneous phenergan Other [place] Allergy/[id number]( [facility] CT) Hospital Repository 12/09/2014 Drug hydrocodone Vomiting Unknown [place] Allergy/[id number]( bitartrate/F0000 [facility] SNOM[facility]) 08764(RXNORM) Hospital Repository ENCOUNTERS ENCOUNTERS ADMIT/DISCHARGE ACCOUNT NUMBER ADMITTING ENCOUNTER LOCATION SOURCE CLASS 03/06/2018 [id number] Ambulatory Building:[facility] OHIP Practices Repository 02/03/2018 [id number] Ambulatory [facility] ding:US Repository 06/24/2017 [id number] Ambulatory BuildinC [employer] ([place]) Repository FUNCTIONAL STATUS FUNCTIONAL STATUS No Functional Status Records FoundEQUIPMENT EQUIPMENT No Equipment Records FoundPAYERS PAYERS ENCOUNTER GUARANTOR PAYER SUBSCRIBER SOURCE 03/06/2018 Adam A Primary Adam A [facility] Practices ErdosDOB: Insurance:Aetna Life ErdosDOB: Repository [id number] Ins/MedicarePolicy [id number] [place] Number: [address] [place], [place] [id number] [place], [place] [address]Snk: (397) Date:[id number] [id number]: ()Tel: Name:[facility] [phone] () [address] [place] [address] () [id number]: 03/06/2018 Secondary Adam A [facility]IP Practices Insurance:TRANS ErdosDOB: Repository RXPolicy Number: [id number] Effective Date:Plan 3 Emmett Name:[place], [place] [address]Bfo: () 02/03/2018 ADAM A Primary ADAM Honorio [place] [id number] Insurance:AETNA ERDOSDOB: [facility] Number: [id number] [id number] Repository 269[address]Qbz: (471) Date:[id number] [phone] () [address] [address]PR: 02/03/2018 Secondary NOT GIVENUNK [place] Insurance:SELF PAY [facility] Number: Effective Repository Date:2018-01-25 SOCIAL HISTORY SOCIAL HISTORY No Social History Records FoundFAMILY HISTORY FAMILY HISTORY No Family History Records FoundPREGNANCY No Status Records FoundADVANCE DIRECTIVES ADVANCE DIRECTIVES No Advanced Directives Records FoundINFORMATION SOURCE INFORMATION SOURCE DATE CREATED AUTHOR AUTHOR'S ORGANIZATION 03/15/2018 [facility]
== END ==
PROVIDERS: Family Provider Nurse Practitioner; PCP Nurse Practitioner; Referring Provider Nurse Practitioner; Visit Provider Nurse Practitioner
DX: R10.9 Unspecified abdominal pain (principal)
CPT/HCPCS: 76700

== ENCOUNTER 2020-03-13 12:40 | Outpatient (RCR) | payer MEDICARE, SELFPAY ==
[2019-10-17 16:42] VITALS: BMI 29.2
== END 2020-03-13 23:59 ==
LOC: IMMUN 12:40
PROVIDERS: PCP Nurse Practitioner; Visit Provider Family Medicine
DX: Z23 Encounter for immunization (principal)
CPT/HCPCS: 0011A; 0012A; 91301

== ENCOUNTER 2021-01-07 16:12 | Inpatient (IN) | payer MEDICARE, SELFPAY ==
[2021-01-07] VITALS (15 sets, daily range): BP systolic 110–137; BP diastolic 78–104; PULSE 134–141; RESP 10–23; TEMP 35.7–36.6; O2SAT 93–99; BMI 29.4
--- NOTE | 2021-01-07 16:17 | RAD_ITS ---
STUDY: X-RAY CHEST REASON FOR EXAM: Male, 80 years old. Chest pain TECHNIQUE: Single frontal view of the chest. COMPARISON: 06/14/16. FINDINGS: The lungs are clear and expanded. There is no demonstrated pleural abnormality. Normal size heart. Normal mediastinum and arti. Normal visualized pulmonary arteries. Normal visualized aortic arch and descending thoracic aorta. Normal visualized thoracic spine. Normal visualized ribs, clavicles, and shoulders. There is no demonstrated abnormality of the visualized soft tissue structures of the upper abdomen. RAD/Chest 1 View (Portable) IMPRESSION: Normal x-ray examination of the chest. Electronically Signed: Nacho Parrish MD at 18:54 EST Tel , Service support ,
--- NOTE | 2021-01-07 16:17 | EKG12_ITS ---
Test Reason : CP Blood Pressure : / mmHG Vent. Rate : 139 BPM Atrial Rate : 139 BPM P-R Int : 136 ms QRS Dur : 124 ms QT Int : 310 ms P-R-T Axes : 000 058 033 degrees QTc Int : 471 ms Sinus tachycardia Right bundle branch block Abnormal ECG Confirmed by MILTON BRADFORD, MAN ([id number]), science editor KAREN KING ([id number]) on 01/08/2021 2:29:47 P M Referred By: QUITA/CAROLYN Confirmed By:PAU ROSE MD
[2021-01-07 17:06] LABS: Absolute Lymphocyte Count 1.45 X10^3/uL (0.83-4.51); Absolute Neutrophil Count 6.4 X10^3/uL (2.0-7.7); Basophil# 0.03 X10^3/uL; Basophil% 0.3 % (0-1); Eosinophil# 0.09 X10^3/uL; Hemoglobin 14.6 g/dL (13.0-16.5); Lymphocyte # 1.45 X10^3/ul (0.83-4.51); Lymphocyte % 16.2 % (19-41); Mean Corpuscular Hgb 31.8 pg (27.0-32.0); Mean Corpuscular Volume 93.7 fL (80-94); Mean Platelet Vol. 10.7 fl (6.2-12.0); Monocyte# 0.93 X10^3/uL; Monocyte% 10.4 % (0-10); NRBC Flagged by Analyzer 0 % (0-5); Neutrophil # 6.43 X10^3/uL (2.7-7.7); Neutrophil % 71.7 % (47-70); Platelet Count 167 K/mm3 (150-450); RBC Distribution Width CV 12.8 % (11.6-14.6); RBC Distribution Width SD 43.7 fl (35.1-43.9); Red Blood Count 4.59 M/mm3 (4.6-6.2)
[2021-01-07 17:33] LABS: Anion Gap 3 (5-15); BUN 15 mg/dL (7-18); BUN/Creat Ratio 13.3 RATIO (10-20); Calcium,Total 9.2 mg/dL (8.5-10.1); Chloride 107 mmol/L (98-107); Creatinine, Serum 1.13 mg/dL (0.70-1.30); EST Glomerular Filtration Rate 66 mL/min (>60); Est Glom Filt Rate - Afr Amer 80 mL/min (>60); Estimated Creatinine Clearance 47.93 ml/min; Glucose 100 mg/dL (74-106); Potassium 4.6 mmol/L (3.5-5.1); Sodium Level 138 mmol/L (136-145); Troponin-I HS 8 pg/mL (3.0-78.0)
--- NOTE | 2021-01-07 18:48 | EX.ED.DYSGE1 ---
HPI History of Present Illness Chief Complaint: Chest Pain Informant: patient Onset/Context/Timing Onset: Today Current Severity: Mild Maximum Severity: Moderate Narrative Narrative: Patient presents with a tight bandlike sensation around his chest. He states the symptoms were present when he woke up this morning. He is also had a headache intermittently for the last 2 weeks. He does complain of some mild ear pain and enlarged lymph node on the left neck that seem to be improving. He went to see his PCP who sent him to the emergency room. Heart rate was noted to be around 140. Patient states his symptoms are improved but not completely resolved. Heart rate remains elevated. [facility] Medical History Back pain Encounter for screening for COVID-19 Fatigue HTN (hypertension) Left ear impacted cerumen Lung disease SOB (shortness of breath) Home Medications albuterol sulfate [Ventolin HFA] 1 - 2 puff INHALATION Q6H PRN PRN 01/16/13 [History Last Taken Unknown] sertraline 50 mg PO DAILY 01/16/13 [History Last Taken Unknown] simvastatin 40 mg PO QHS 01/16/13 [History Last Taken Unknown] Beclomethasone Diprop Inhaler [Qvar 80 Mcg Inhaler] 1 puff INHALATION BID 03/19/14 [History Last Taken 12/09/14 09:00] rivaroxaban 20 mg PO DAILY #30 tab 04/01/14 [Rx Last Taken Unknown] metoprolol succinate 50 mg PO DAILY 11/26/14 [History Last Taken 12/09/14 09:00] diphenhydramine-acetaminophen [Tylenol Pm Ex-Strength Caplet] 1 tab PO QHS 06/21/16 [History Last Taken Unknown] doxycycline monohydrate 100 mg capsule 100 mg PO BID #20 cap 10/17/19 [Rx Last Taken Unknown] lansoprazole 30 mg capsule,delayed release 30 mg PO BID 10/17/19 [History Last Taken Unknown] Allergy/AdvReac Type Severity Reaction Status Date / Time hydrocodone bitartrate AdvReac Vomiting Verified 01/07/21 16:15 [From Vicodin] phenergan AdvReac Intermediate Other Uncoded 01/07/21 16:15 Thorazine AdvReac Intermediate Other Uncoded 01/07/21 16:15 Surgical History History of bilateral hip replacements Hx of Achilles tendon repair Social History Smoking Status: Former smoker alcohol intake: never ROS ROS ED Constitutional Constitutional ED: Denies chills or fever(s) Eyes Eyes: Denies change in vision ENT ENT ED: Denies sore throat Cardiovascular Cardiovascular: Reports chest pain Respiratory/Chest Respiratory/Chest: Reports dyspnea; Denies cough Gastrointestinal Gastrointestinal: Denies abdominal pain, diarrhea, nausea or vomiting Genitourinary Genitourinary ED: Denies dysuria Musculoskeletal Musculoskeletal: Denies back pain Integumentary Denies rash Neurologic Neurologic: Reports headache(s); Denies weakness Allergic/Immunologic Allergic/Immunologic ED: Denies urticaria EXAM Physical Exam Const Vital Signs: 01/07/21 16:13 01/07/21 18:36 01/07/21 18:37 Temperature 96.3 F L Temperature Source Temporal Pulse Rate 141 H 137 H Respiratory Rate 18 18 Respiratory Effort Normal Non-Labored Blood Pressure 137/101 H 112/78 Blood Pressure Mean 113 89 Pulse Ox 99 99 96 Oxygen Delivery Method Room Air Room Air Room Air 01/07/21 19:09 01/07/21 20:09 01/07/21 20:46 Temperature Temperature Source Pulse Rate 136 H 138 H 136 H Respiratory Rate 21 H 23 H Respiratory Effort Blood Pressure 118/88 H 113/96 H Blood Pressure Mean 98 101 Pulse Ox 94 Oxygen Delivery Method Room Air 01/07/21 21:02 01/07/21 22:02 01/07/21 22:55 Temperature 98 F Temperature Source Temporal Pulse Rate 135 H 136 H 137 H Respiratory Rate 17 20 H Respiratory Effort Blood Pressure 110/79 129/97 H Blood Pressure Mean 89 107 Pulse Ox 93 96 Oxygen Delivery Method Room Air Room Air 01/07/21 23:00 01/07/21 23:01 01/07/21 23:03 Temperature Temperature Source Pulse Rate 136 H 136 H 135 H Respiratory Rate 15 15 Respiratory Effort Blood Pressure 118/94 H 122/90 H Blood Pressure Mean 102 100 Pulse Ox 96 95 Oxygen Delivery Method Room Air Room Air 01/07/21 23:05 Temperature Temperature Source Pulse Rate 135 H Respiratory Rate Respiratory Effort Blood Pressure Blood Pressure Mean Pulse Ox Oxygen Delivery Method Positive well nourished and well developed General Appearance ED: well developed HEENT Reports moist mucous membranes Eyes PERRL and EOMs intact bilaterally Neck supple Chest Wall inspection of chest normal and palpation of chest normal Resp normal respiratory effort and clear to auscultation bilaterally Cardio regular rhythm Rate: tachycardic GI normal to inspection, nondistended, normoactive bowel sounds and non-tender Palpation: soft Extremity normal to inspection Neuro oriented x3 Sensorium / Orientation: alert Skin no rashes or lesions noted MDM MDM MDM Narrative Medical decision making narrative: Lab work, EKG, CTA chest obtained. Lab Data Attestation: I reviewed the patient's lab results. Labs: Laboratory Results - last 24 hr 01/07/21 01/07/21 01/07/21 16:55 16:55 16:55 WBC 9.0 RBC 4.59 L Hgb 14.6 Hct 43.0 MCV 93.7 MCH 31.8 MCHC 34.0 RDW Std Deviation 43.7 RDW Coeff of Mariama 12.8 Plt Count 167 MPV 10.7 Immature Gran % (Auto) 0.400 Neut % (Auto) 71.7 H Lymph % (Auto) 16.2 L Sublette % (Auto) 10.4 H Eos % (Auto) 1.0 Baso % (Auto) 0.3 Absolute Neuts (auto) 6.4 Absolute Lymphs (auto) 1.45 Nucleated RBC % 0 Sodium 138 Potassium 4.6 Chloride 107 Carbon Dioxide 28.0 Anion Gap 3 L BUN 15 Creatinine 1.13 Estim Creat Clear Calc 47.93 Est GFR (MDRD) Af Amer 80 Est GFR (MDRD) Non-Af 66 BUN/Creatinine Ratio 13.3 Glucose 100 Calcium 9.2 Magnesium Troponin I High Sens 8 TSH 0.30 L 01/07/21 16:55 WBC RBC Hgb Hct MCV MCH MCHC RDW Std Deviation RDW Coeff of Mariama Plt Count MPV Immature Gran % (Auto) Neut % (Auto) Lymph % (Auto) Sublette % (Auto) Eos % (Auto) Baso % (Auto) Absolute Neuts (auto) Absolute Lymphs (auto) Nucleated RBC % Sodium Potassium Chloride Carbon Dioxide Anion Gap BUN Creatinine Estim Creat Clear Calc Est GFR (MDRD) Af Amer Est GFR (MDRD) Non-Af BUN/Creatinine Ratio Glucose Calcium Magnesium 1.8 Troponin I High Sens TSH Radiography Chest X-Ray - ED: 1 View, Read by ED Physician, Normal, Heart, Lungs and Mediastinum Diagnostic Testing: Clinical Impression(s) from Imaging Studies Chest X-Ray 01/07/21 16:17 IMPRESSION: Normal x-ray examination of the chest. Electronically Signed: Nacho Parrish MD at 18:54 EST Tel , Service support , Chest CTA 01/07/21 19:35 IMPRESSION: No demonstrated pulmonary embolism or arterial dissection. Significant emphysematous disease. Electronically Signed: Nacho Parrish MD at 20:35 EST Tel , Service support , EKG Initial EKG: Attestation: I personally reviewed and interpreted this EKG as follows: Comments: Sinus tach versus a flutter with 2-1 block. Right bundle branch block noted. No acute ST change. Ventricular rate is 139. Treatment and Re-Evaluation Comments:: Patient's lab work is unremarkable. CTA of the chest reveals no evidence of PE. Patient's heart rate remains between 135 and 140. He was given a small dose of Cardizem but had no change in his rate. I will speak with hospitalist regarding admission for chest pain evaluation and tachycardia. After reviewing case with hospitalist, patient was given 3 doses of IV metoprolol in hopes of slowing down his heart rhythm to further delineate whether he was in atrial flutter or not. This did not change his heart rate at all. He was given 6 mg of adenosine. He had definite underlying flutter waves. Patient be given amiodarone bolus and drip at this time. Discharge Plan Dx/Rx/DC Orders Clinical Impression: Chest pain, Tachycardia, Atrial flutter Disposition Disposition: Acute Care [facility]
[2021-01-07] MEDS: Aspirin 81 MG TAB.CHEW 324 MG PO (19:08)
[2021-01-07] MEDS: 0.9% Normal Saline 1,000 ML 150 ML IV (19:08)
--- NOTE | 2021-01-07 19:35 | CT_ITS ---
STUDY: CTA CHEST REASON FOR EXAM: Male, 80 years old. Sob, cp RADIATION DOSAGE (If Supplied By Facility): CTDIvol = ( 16.48 ) mGy, DLP = ( 496.38 ) mGycm TECHNIQUE: The examination was performed with the intravenous administration of IV 100mL Isovue-370. Post-processing of the angiographic images was performed, with multiplanar reformation and 3D reconstruction. Individualized dose optimization techniques were used for this CT. COMPARISON: 06/21/2016. FINDINGS: Small amount of air is noted within the central venous system which may be related to injection. Normal enhancement of the main pulmonary artery and right and left pulmonary arteries. Normal enhancement of the bilateral peripheral pulmonary arteries. There is no demonstrated pulmonary embolism. Normal thoracic aorta and visualized great vessels. There is no demonstrated aortic dissection. There are calcifications of the coronary arteries. Normal mediastinum. Normal hilar regions. Normal visualized trachea and bronchi. The lungs are well expanded. Significant bilateral emphysematous disease. Normal pleura. Normal chest wall structures. Normal osseous structures. Normal visualized upper abdomen. CT/CTA Chest W/WO Contrast IMPRESSION: No demonstrated pulmonary embolism or arterial dissection. Significant emphysematous disease. Electronically Signed: Nacho Parrish MD at 20:35 EST Tel , Service support ,
[2021-01-07] MEDS: dilTIAZem 25 MG/5 ML Vial 10 MG IV BOLUS (20:52)
--- NOTE | 2021-01-07 22:09 | HP.PCM.HOS_ITS ---
HPI - General General Date of Admission: 01/07/21 Date of Service: 01/07/21 Chief Complaint: Chest pain HPI Narrative The patient is an 80 y/o M w/ PMHx: Chronic COPD, Former Tobacco use, HTN, HLD, Anxiety and Depression, GERD, PAF s/p ablation who presents to the [facility] ED on 01/07/21 with history of onset tight band like chest discomfort, started upon awaking in the AM, rated 7/10, worse with deep inspiratory effort, waxing and waning through the day with palpations, noted 5/10 upon ED evaluation prompting evaluation. He noted that he had over the last 2 weeks had sinus congestion sensation, headache, L ear discomfort, subjective fever, chills with body aches with negative COVID testing most recently on 01/01/21. He reports being dual vaccinated and also had his booster. He was seen at urgent care for his initial evaluation and followed upon day of ED presentation with his PCP who referred him to the ED following noted tachycardia, unclear rhythm on EKG. patient does report dyspnea sensation especially with deep breath is noted and does admit to occasional lightheadedness. Work-up in the ED included T 96.3, heart rate ini tially 141, BP 137/101, respiratory rate 18, 99% on room air, CBC with WC 9, hemoglobin 14.6, platelets 167 without marked shift, BMP unremarkable, troponin 8, TSH 0.30, chest x-ray with no acute cardiopulmonary findings, CTPA with no demonstrated PE or arterial dissection with significant emphysematous disease, EKG with sinus tachycardia versus flutter with a 2-1 block with no acute evidence of ischemia. Patient did have Cardizem bolus however his rate did not change. In ED patient ministered normal saline, aspirin 324 mg p.o. x1, diltiazem 10 mg IV bolus x1. Patient had no response to bolus as noted thus per discussion with ED physician was administered lopressor trial x 3 without any im provement. Adenosine 6 mg administered and confirmed atrial flutter with RVR following which patient initiated on amiodarone bolus and drip. [facility] Medical History (Updated 01/07/21 @ 23:[address] Briseida Hopper MD) Back pain Encounter for screening for COVID-19 Fatigue HTN (hypertension) Left ear impacted cerumen Lung disease SOB (shortness of breath) Home Medications albuterol sulfate [Ventolin HFA] 1 - 2 puff INHALATION Q6H PRN PRN 01/16/13 [History Last Taken Unknown] sertraline 50 mg PO DAILY 01/16/13 [History Last Taken Unknown] simvastatin 40 mg PO QHS 01/16/13 [History Last Taken Unknown] Beclomethasone Diprop Inhaler [Qvar 80 Mcg Inhaler] 1 puff INHALATION BID 03/19/14 [History Last Taken 12/09/14 09:00] rivaroxaban 20 mg PO DAILY #30 tab 04/01/14 [Rx Last Taken Unknown] metoprolol succinate 50 mg PO DAILY 11/26/14 [History Last Taken 12/09/14 09:00] diphenhydramine-acetaminophen [Tylenol Pm Ex-Strength Caplet] 1 tab PO QHS 06/21/16 [History Last Taken Unknown] doxycycline monohydrate 100 mg capsule 100 mg PO BID #20 cap 10/17/19 [Rx Last Taken Unknown] lansoprazole 30 mg capsule,delayed release 30 mg PO BID 10/17/19 [History Last Taken Unknown] Allergy/AdvReac Type Severity Reaction Status Date / Time hydrocodone bitartrate AdvReac Vomiting Verified 01/07/21 16:15 [From Vicodin] phenergan AdvReac Intermediate Other Uncoded 01/07/21 16:15 Thorazine AdvReac Intermediate Other Uncoded 01/07/21 16:15 Family History (Updated 01/07/21 @ 23:[address] Briseida Hopper MD) Father Heart disease other (Denies any marked maternal family history including HD, DM, CA.) Surgical History (Updated 01/07/21 @ 23:[address] Briseida Hopper MD) H/O cardiac radiofrequency ablation History of bilateral hip replacements History of lung surgery Hx of Achilles tendon repair Social History (Updated 01/07/21 @ 23:[address] Briseida Hopper MD) household members: spouse Smoking Status: Former smoker how long ago did patient quit smoking: Quit 30 years prior, smoked 1-1.5 ppd since college until quit. alcohol intake: never substance use type: does not use ROS ROS Narrative Admission Review of Systems: CONSTITUTIONAL: No weight loss, + fever, chills, weakness or fatigue. HEENT: + ACEVEDO, congestion, sore throat. Eyes: No visual loss, blurred vision, double vision or yellow sclerae. Ears, Nose, Throat: No hearing loss, sneezing. SKIN: No rash or itching, lesions, wounds. CARDIOVASCULAR: + chest pain, chest pressure or chest discomfort, palpitations, No edema, orthopnea, syncopal events. RESPIRATORY: + shortness of breath, cough, No marked sputum, wheezing, hemoptysis. GASTROINTESTINAL: No anorexia, nausea, vomiting or diarrhea, abdominal pain, melena, BRBPR. GENITOURINARY: No dysuria, frequency, urgency or retention. NEUROLOGICAL: + headache, dizziness, No syncope, paralysis, ataxia, numbness or tingling in the extremities, focal weakness, change in bowel or bladder control, seizure. MUSCULOSKELETAL: + muscle, back pain, joint pain or stiffness. HEMATOLOGIC: + anemia, bleeding or bruising. LYMPHATICS: No enlarged nodes. No history of splenectomy. PSYCHIATRIC: + history of depression or anxiety. ENDOCRINOLOGIC: No reports of sweating, cold or heat intolerance. No polyuria or polydipsia. ALLERGIES: No history of asthma, hives, eczema or rhinitis. Vital Signs Vital Signs Vital Signs: 01/07/21 16:13 01/07/21 18:36 01/07/21 18:37 Temperature 96.3 F L Temperature Source Temporal Pulse Rate 141 H 137 H Respiratory Rate 18 18 Respiratory Effort Normal Non-Labored Blood Pressure 137/101 H 112/78 Blood Pressure Mean 113 89 Pulse Ox 99 99 96 Oxygen Delivery Method Room Air Room Air Room Air 01/07/21 19:09 01/07/21 20:09 01/07/21 20:46 Temperature Temperature Source Pulse Rate 136 H 138 H 136 H Respiratory Rate 21 H 23 H Respiratory Effort Blood Pressure 118/88 H 113/96 H Blood Pressure Mean 98 101 Pulse Ox 94 Oxygen Delivery Method Room Air 01/07/21 21:02 01/07/21 22:02 Temperature Temperature Source Pulse Rate 135 H 136 H Respiratory Rate 17 Respiratory Effort Blood Pressure 110/79 Blood Pressure Mean 89 Pulse Ox 93 Oxygen Delivery Method Room Air Weight Weight: 188 lb Body Mass Index (BMI) 29.4 Physical Exam Narrative Physical Examination: General: Awake, alert, oriented x 3 and cooperative, seated upright in the ED bed, fatigued, no acute distress, does report chest pain has increased a little bit again and is now 5 out of 10, tightness. Skin: Normal color, normal turgor, no icterus, no cyanosis. HEENT: AT/NC, EOMI, PERRLA, MMM, no carotid bruits or JVD noted. Lungs: Diminished, greater bases, appropriate effort, no rales, ronchi or wheezing. Heart: Irregular irregular; no gallop, rub audible. Abdomen: Soft, overweight, NTTP, ND, normal BS, no HSM. Extremities: No cyanosis, clubbing, or edema. Neurological: Patient awake, alert, oriented as noted, cognitive function intact; pupils equally reactive to light and accommodation, cranial nerves II- XII grossly normal, moving all 4 extremities, no focal deficits, strength moderately globally decreased secondary to acute complaints. Psychiatric: Affect appears fatigued otherwise normal, no acute evidence of depressive or anxiety feelings. Results Lab / Micro Data Result Diagrams: 01/07/21 16:55 01/07/21 16:55 Labs: Laboratory Results - last 24 hr 01/07/21 16:55: WBC 9.0, RBC 4.59 L, Hgb 14.6, Hct 43.0, MCV 93.7, MCH 31.8, MCHC 34.0, RDW Std Deviation 43.7, RDW Coeff of Mariama 12.8, Plt Count 167, MPV 10.7, Immature Gran % (Auto) 0.400, Neut % (Auto) 71.7 H, Lymph % (Auto) 16.2 L, [place] % (Auto) 10.4 H, Eos % (Auto) 1.0, Baso % (Auto) 0.3, Absolute Neuts (auto) 6.4, Absolute Lymphs (auto) 1.45, Nucleated RBC % 0 01/07/21 16:55: Sodium 138, Potassium 4.6, Chloride 107, Carbon Dioxide 28.0, Anion Gap 3 L, BUN 15, Creatinine 1.13, Estim Creat Clear Calc 47.93, Est GFR (MDRD) Af Amer 80, Est GFR (MDRD) Non-Af 66, BUN/Creatinine Ratio 13.3, Glucose 100, Calcium 9.2, Troponin I High Sens 8 01/07/21 16:55: TSH 0.30 L Radiology Impression Chest X-Ray 01/07/21 16:17 IMPRESSION: Normal x-ray examination of the chest. Electronically Signed: Nacho Parrish MD at 18:54 EST Tel , Service support , Chest CTA 01/07/21 19:35 IMPRESSION: No demonstrated pulmonary embolism or arterial dissection. Significant emphysematous disease. Electronically Signed: Nacho Parrish MD at 20:35 EST Tel , Service support , Assessment & Plan Assessment/Plan (1) Atrial flutter: QUALIFIERS: Atrial flutter type: unspecified Qualified Code(s): I48.92 - Unspecified atrial flutter (2) Chest pain: QUALIFIERS: Chest pain type: unspecified Qualified Code(s): R07.9 - Chest pain, unspecified PLAN: The patient is an 80 y/o M w/ PMHx: Chronic COPD, Former Tobacco use, HTN, HLD, Anxiety and Depression, GERD, PAF s/p ablation who presents to the [facility] ED on 01/07/21 with history of onset tight band like chest discomfort, started upon awaking in the AM, rated 7/10, worse with deep inspiratory effort, waxing and waning through the day with palpations, noted 5/10 upon ED evaluation prompting evaluation. 1. Paroxsymal atrial fibrillation history with Atrial flutter with RVR and as sociated chest pain: Will admit to PCU, maintain on telemetry, obtain cardiac enzyme serial set, obtain magnesium level, obtain ECHO, obtain FT4 given TSH low, continue amiodarone initiated drip given no response to IV lopressor or cardizem while in the ED. Continue xarelto. Will request Cardiology consultation. Patient normally following w/ Dr. De Jesus. 2. Recent suspected acute viral syndrome, unclear specific etiology: Covid PCR negative, several complaints more consistent with viral illness, will obtain respiratory viral panel to be thorough. 3. Chronic COPD: Will maintain on oxygen with wean as tolerated to room air, ATC budesonide, PRN albuterol if necessary but defer especially given presentation with tachycardia, HOB, IS parameters. 4. Anxiety and depression: We will continue patient home sertraline regimen. 5. Abnormal TSH: TSH 0.30, free T4 requested as may be subclinical but especially given amiodarone usage pending cardiology evaluation will be thorough. 6. GERD: We will continue patient PPI. 7. DVT prophylaxis: SCDs, Xarelto. 8. CODE status: Patient ELSA is his and living will is currently in place. Discussed CODE status at length including difference between FULL code, DNR-CCA and DNR-CC status. Following discussions about the differences in these status, requested Full Code status. Advanced Care Planning Face to Face Time: 16 minutes. Charges/Coding Visit Charges Inpatient E&M: 19129 Init Hosp L3 Procedures Hospitalists Procedures: [id number] Advncd Care Plan 30 Min
[2021-01-07] MEDS: Metoprolol Tartrate 5 MG/5 ML Vial IV ×3 (22:54→23:05)
--- NOTE | 2021-01-07 23:22 | EKG12_ITS ---
Test Reason : DYSRHYTHMIA Blood Pressure : / mmHG Vent. Rate : 134 BPM Atrial Rate : 094 BPM P-R Int : 000 ms QRS Dur : 132 ms QT Int : 344 ms P-R-T Axes : 000 069 027 degrees QTc Int : 513 ms Possible Aflutter with 2:1 block Right bundle branch block Abnormal ECG Confirmed by MILTON BRADFORD, MAN ([id number]), editor managing newspaper KAREN KING ([id number]) on 01/09/2021 9:24:41 A M Referred By: CAROLYN Confirmed By:PAU ROSE MD
[2021-01-07 23:24] LABS: Magnesium 1.8 mg/dL (1.6-2.6)
[2021-01-07] MEDS: Adenosine 6 MG/2 ML Syringe IV (23:32)
[2021-01-07 23:46] LABS: Probe Check PASS; Specimen Processing Control PASS
[2021-01-08] VITALS (34 sets, daily range): BP systolic 100–134; BP diastolic 62–107; PULSE 64–135; RESP 14–24; TEMP 36.2–37.1; O2SAT 93–100; BMI 29.8
--- NOTE | 2021-01-08 00:38 | ECHOCS_ITS ---
Reason For Study: PAF Procedure This was a 2D Doppler, Color Flow transthoracic echocardiogram. The study was technically difficult. Contrast injection was performed. Exam performed portable in patient room. Left Ventricle Normal LV size. Left ventricular systolic function is normal. The estimated ejection fraction is 55 %. No regional wall motion abnormalities noted. Right Ventricle Normal RV size. Normal systolic function. Atria Normal left atrium. Normal right atrium. Mitral Valve Normal mitral valve. Tricuspid Valve Normal tricuspid valve. Mild (1+) tricuspid valve insufficiency. Pulmonary artery systolic pressure is 50 mmHg. Aortic Valve Trisinus/trileaflet aortic valve. Mild focal aortic valve calcification. Aortic sclerosis, no stenosis. Great Vessels Normal aortic root. The pulmonary artery is normal size. Normal inferior vena cava. Pericardium/Pleural No pericardial effusion. Medication Diluted definity 3.0ml given slow IV push to enhance endocardial definition. MMode/2D Measurements & Calculations LVIDd: 4.1 cm IVSd: 0.83 cm LVOT diam: 2.0 cm LVIDs: 3.3 cm LVPWd: 0.83 cm LVOT area: 3.1 cm2 RVDd: 3.9 cm FS: 19.9 % Ao root diam: 2.9 cm LAV(MOD-bp): 59.4 ml LVAd ap4: 22.7 cm2 LAV(MOD-bp) Indexed: 30.0 ml/m2 LVLd ap4: 7.1 cm LAV(MOD-sp2): 57.9 ml EDV(MOD-sp4): 59.6 ml LAV(MOD-sp4): 58.6 ml EDV(sp4-el): 61.5 ml LVAs ap4: 14.7 cm2 LVLs ap4: 6.3 cm ESV(MOD-sp4): 28.8 ml ESV(sp4-el): 29.3 ml EF(MOD-sp4): 51.7 % EF(sp4-el): 52.3 % LVAd ap2: 28.0 cm2 SV(MOD-sp4): 30.8 ml SV(MOD-sp2): 33.7 ml LVLd ap2: 7.5 cm EDV(MOD-sp2): 91.0 ml EDV(sp2-el): 88.8 ml LVAs ap2: 21.1 cm2 LVLs ap2: 6.9 cm ESV(MOD-sp2): 57.3 ml ESV(sp2-el): 54.3 ml EF(MOD-sp2): 37.0 % SV(sp4-el): 32.1 ml LA dimension(2D): 4.1 cm LA A4 area: 20.5 cm2 RA A4 area: 16.5 cm2 Doppler Measurements & Calculations MV E max cristobal: 105.8 cm/sec MV V2 max: 126.8 cm/sec Ao V2 max: 107.9 cm/sec MV max P.4 mmHg Ao max P.7 mmHg MV V2 mean: 60.3 cm/sec Ao V2 mean: 79.8 cm/sec MV mean P.0 mmHg Ao mean P.8 mmHg MV V2 VTI: 29.5 cm Ao V2 VTI: 18.5 cm MVA(VTI): 1.5 cm2 GINA(I,D): 2.3 cm2 GINA(V,D): 2.2 cm2 LV V1 max: 76.6 cm/sec SV(LVOT): 42.8 ml PA V2 max: 95.0 cm/sec LV V1 max P.4 mmHg LV V1 mean P.3 mmHg LV V1 mean: 53.8 cm/sec LV V1 VTI: 13.9 cm TR max cristobal: 336.7 cm/sec MV P1/2t-pr_phl: 135.5 msec TR max P.3 mmHg ECHO/Echo Complete W/ Contrast Interpretation Summary Normal LV size. Left ventricular systolic function is normal. The estimated ejection fraction is 55 %. Pulmonary artery systolic pressure is 50 mmHg. Mild focal aortic valve calcification. Aortic sclerosis, no stenosis. Ordering Physician: Briseida Hopper Referring Physician: PASOTR ANDRES Performed By: Hellen Ohara, FESTUSCS, RVT
--- NOTE | 2021-01-08 00:49 | EKG12_ITS ---
Test Reason : POST DCCV Blood Pressure : / mmHG Vent. Rate : 054 BPM Atrial Rate : 054 BPM P-R Int : 182 ms QRS Dur : 132 ms QT Int : 476 ms P-R-T Axes : 052 051 045 degrees QTc Int : 451 ms Sinus bradycardia Right bundle branch block Abnormal ECG No previous ECGs available Confirmed by MILTON BRADFORD, MAN ([id number]), communications editor KAREN KING ([id number]) on 01/09/2021 2:10:53 P M Referred By: MADI Confirmed By:PAU ROSE MD
--- NOTE | 2021-01-08 00:54 | PCS.PANDOC ---
PANDEMIC DOCUMENTATION INITIATED: Date: 10/06/2020 Time: 190
[2021-01-08] MEDS: 0.9% Normal Saline 1,000 ML 150 ML IV ×4 (01:28→20:50)
[2021-01-08] MEDS: Morphine 2 MG/ML Syringe IV ×2 (01:32→20:50)
[2021-01-08] MEDS: 0.9% Saline Lock 10 ML Syringe IV ×2 (01:33→03:12)
[2021-01-08 02:04] LABS: Troponin-I HS 10 pg/mL (3.0-78.0)
[2021-01-08] MEDS: Digoxin 250 MCG/ML Ampul IV (03:12)
[2021-01-08] MEDS: Acetaminophen 325 MG Tablet 650 MG PO ×3 (03:27→18:59)
[2021-01-08 03:53] LABS: Troponin-I HS 12 pg/mL (3.0-78.0)
--- NOTE | 2021-01-08 05:55 | EKG12_ITS ---
Test Reason : AM EKG Blood Pressure : / mmHG Vent. Rate : 110 BPM Atrial Rate : 267 BPM P-R Int : 000 ms QRS Dur : 134 ms QT Int : 358 ms P-R-T Axes : 000 064 017 degrees QTc Int : 484 ms Atrial fibrillation Right bundle branch block Abnormal ECG When compared with ECG of 08-JAN-2021 01:02, MANUAL COMPARISON REQUIRED, DATA IS UNCONFIRMED Confirmed by MILTON BRADFORD, MAN ([id number]), film and video editor KAREN KING ([id number]) on 01/09/2021 2:10:20 P M Referred By: DR CONTRERAS Confirmed By:PAU ROSE MD
[2021-01-08 07:03] LABS: Absolute Lymphocyte Count 1.33 X10^3/uL (0.83-4.51); Absolute Neutrophil Count 4.7 X10^3/uL (2.0-7.7); Basophil# 0.02 X10^3/uL; Basophil% 0.3 % (0-1); Eosinophil# 0.06 X10^3/uL; Eosinophils% 0.8 % (0-5); Hematocrit 37.9 % (40-54); Lymphocyte # 1.33 X10^3/ul (0.83-4.51); Lymphocyte % 18.4 % (19-41); Mean Corp Hgb Conc 34.3 g/dL (32-36); Mean Corpuscular Hgb 32.2 pg (27.0-32.0); Mean Corpuscular Volume 93.8 fL (80-94); Mean Platelet Vol. 10.6 fl (6.2-12.0); Monocyte# 1.07 X10^3/uL; Monocyte% 14.8 % (0-10); NRBC Flagged by Analyzer 0 % (0-5); Neutrophil # 4.74 X10^3/uL (2.7-7.7); Neutrophil % 65.4 % (47-70); Platelet Count 136 K/mm3 (150-450); RBC Distribution Width SD 44.7 fl (35.1-43.9); Red Blood Count 4.04 M/mm3 (4.6-6.2); White Blood Count 7.2 K/mm3 (4.4-11.0)
[2021-01-08] MEDS: Budesonide Respules 0.5 MG/2 ML AMPUL.NEB. INHALATION ×2 (07:20→21:15)
--- NOTE | 2021-01-08 07:22 | CON.PCM.CA_ITS ---
Assessment & Plan Assessment/Plan (1) Atrial flutter: QUALIFIERS: Atrial flutter type: unspecified Qualified Code(s): I48.92 - Unspecified atrial flutter PLAN: Patient presents with atrial flutter with 2-1 conduction. My recommendation at this time will be to attempt to slow down his heart rate. I will suggest that we use intravenous diltiazem as well as intravenous amiodarone which he is on. He will continue anticoagulation with Xarelto. * An echocardiogram should be performed to assess his ventricular function. * The duration of his atrial flutter is unknown but if it appears that he has been compliant with his Xarelto and he is not able to convert we may need to resort to DC cardioversion. * Further recommendations regarding the above would be made later today. * * Thank you for allowing me to participate in the care of your patient. Please don't hesitate to call if any issues arise. HPI Consult Data Date of Consult: 01/08/21 HPI Narrative HPI Narrative: IRENE AMOS, is a 80 M who presents with a band across his chest which he says started a few days ago. It appears to be worse with taking a deep inspiratory effort and associated with some palpitations. He says that about 2 weeks ago he had some sinus congestion headache and had a negative COVID test. He kept not feeling well and so he presented to the emergency room and was noted to be in atrial flutter with a 2-1 block. He was given intravenous Cardizem and Lopressor without significant improvement and was started on amiodarone bolus and drip and cardiology was consulted for further evaluation and management. He has a previous history of atrial fibrillation for which he was ablated a number of years ago. He also has a history of hypertension. He denies any dizziness or diaphoresis near syncope or syncope. [facility] Medical History Back pain Encounter for screening for COVID-19 Fatigue HTN (hypertension) Left ear impacted cerumen Lung disease SOB (shortness of breath) Home Medications albuterol sulfate [Ventolin HFA] 1 - 2 puff INHALATION Q6H PRN PRN 01/16/13 [History Last Taken Unknown] sertraline 50 mg PO DAILY 01/16/13 [History Last Taken Unknown] simvastatin 40 mg PO QHS 01/16/13 [History Last Taken Unknown] Beclomethasone Diprop Inhaler [Qvar 80 Mcg Inhaler] 1 puff INHALATION BID 03/19/14 [History Last Taken 12/09/14 09:00] rivaroxaban 20 mg PO DAILY #30 tab 04/01/14 [Rx Last Taken Unknown] metoprolol succinate 50 mg PO DAILY 11/26/14 [History Last Taken 12/09/14 09:00] diphenhydramine-acetaminophen [Tylenol Pm Ex-Strength Caplet] 2 tab PO QHS 06/21/16 [History Last Taken Unknown] lansoprazole 30 mg capsule,delayed release 30 mg PO BID 10/17/19 [History Last Taken Unknown] Allergy/AdvReac Type Severity Reaction Status Date / Time hydrocodone bitartrate AdvReac Vomiting Verified 01/07/21 16:15 [From Vicodin] phenergan AdvReac Intermediate Other Uncoded 01/07/21 16:15 Thorazine AdvReac Intermediate Other Uncoded 01/07/21 16:15 Family History Father Heart disease Family History other Surgical History H/O cardiac radiofrequency ablation History of bilateral hip replacements History of lung surgery Hx of Achilles tendon repair Social History household members: spouse Smoking Status: Former smoker how long ago did patient quit smoking: Quit 30 years prior, smoked 1-1.5 ppd since college until quit. alcohol intake: never substance use type: does not use ROS Constitutional Constitutional: Denies fever(s) or weight loss Eyes Eyes: Reports systems reviewed and no addt'l complaints, except as documented ENT HEENT: Reports systems reviewed and no addt'l complaints, except as documented Cardiovascular Cardiovascular: Reports palpitations; Denies chest pain at rest, chest pain with activity, dyspnea at rest, dyspnea on exertion, edema or paroxysmal nocturnal dyspnea Respiratory/Chest Respiratory/Chest: Reports shortness of breath at rest and shortness of breath with exertion Gastrointestinal Gastrointestinal: Denies change in bowel habits, nausea, vomiting or weight changes Genitourinary Genitourinary: Denies difficulty urinating Musculoskeletal Musculoskeletal: Denies joint stiffness or muscle weakness Integumentary Integumentary: Denies lesions Neurologic Neurologic: Denies dizziness or syncope Psychiatric Psychiatric: Denies anxiety Endocrine Endocrinology: Denies excessive sweating or fatigue Hematologic/Lymphatic Hematologic/Lymphatic: Denies anemia Allergic/Immunologic Allergic/Immunologic: Denies seasonal rhinorrhea Physical Exam Const alert, oriented x3 and no apparent distress General Appearance: cooperative HEENT hearing grossly normal bilaterally Head and Scalp: atraumatic Eyes EOMs intact bilaterally Neck General: normal visual inspection Chest inspection of chest normal and palpation of chest normal Resp normal respiratory effort Auscultation: clear to auscultation bilaterally Cardio regular rate, regular rhythm, S1 normal heart sound and S2 normal heart sound Jugular Venous Distention: JVD GI normal to inspection, nondistended, normoactive bowel sounds Extremity normal capillary refill and no pedal edema Peripheral Pulses: Yes pulses 2+ throughout and femoral pulses present Skin no rashes or lesions noted Neuro oriented x3 and CN's II-XII intact bilaterally Psych Appearance: grossly normal and appropriate Risk Stratification Risk Stratification Applicable: No Objective Data Vital Signs: Vital Signs Temp Pulse Resp BP Pulse Ox 97.8 F 112 H 16 120/77 97 01/08/21 06:00 01/08/21 07:00 01/08/21 06:00 01/08/21 07:00 01/08/21 07:00 Oxygen Flow Rate (L/min) 2 Oxygen Delivery Method Nasal Cannula Weight: 190 lb 7.67 oz Body Mass Index (BMI) 29.8 Intake & Output: Intake and Output for Last 24 Hours 01/06/21 01/07/21 01/08/21 23:59 23:59 23:59 Intake Total 1755.36 / 1755.36 Balance 1755.36 / 1755.36 Lab / Micro Data Result Diagrams: 01/08/21 06:50 01/07/21 16:55 Labs: Laboratory Results - last 24 hr 01/07/21 16:55: WBC 9.0, RBC 4.59 L, Hgb 14.6, Hct 43.0, MCV 93.7, MCH 31.8, MCHC 34.0, RDW Std Deviation 43.7, RDW Coeff of Mariama 12.8, Plt Count 167, MPV 10.7, Immature Gran % (Auto) 0.400, Neut % (Auto) 71.7 H, Lymph % (Auto) 16.2 L, [place] % (Auto) 10.4 H, Eos % (Auto) 1.0, Baso % (Auto) 0.3, Absolute Neuts (auto) 6.4, Absolute Lymphs (auto) 1.45, Nucleated RBC % 0 01/07/21 16:55: Sodium 138, Potassium 4.6, Chloride 107, Carbon Dioxide 28.0, Anion Gap 3 L, BUN 15, Creatinine 1.13, Estim Creat Clear Calc 47.93, Est GFR ( MDRD) Af Amer 80, Est GFR (MDRD) Non-Af 66, BUN/Creatinine Ratio 13.3, Glucose 100, Calcium 9.2, Troponin I High Sens 8 01/07/21 16:55: TSH 0.30 L 01/07/21 16:55: Magnesium 1.8 01/07/21 22:30: COVID-19 (SANDY) Negative 01/08/21 01:25: Troponin I High Sens 10 01/08/21 03:18: Troponin I High Sens 12 01/08/21 06:50: WBC 7.2, RBC 4.04 L, Hgb 13.0, Hct 37.9 L, MCV 93.8, MCH 32.2 H, MCHC 34.3, RDW Std Deviation 44.7 H, RDW Coeff of Mariama 13.0, Plt Count 136 L, MPV 10.6, Immature Gran % (Auto) 0.300, Neut % (Auto) 65.4, Lymph % (Auto) 18.4 L, [place] % (Auto) 14.8 H, Eos % (Auto) 0.8, Baso % (Auto) 0.3, Absolute Neuts (auto) 4.7, Absolute Lymphs (auto) 1.33, Nucleated RBC % 0 Micro: Microbiology 01/07/21 22:30 Mucosa - Nasopharyngeal Respiratory Panel (PCR) - Final Cardiology Labs/Tests 01/07/21 16:55: WBC 9.0, RBC 4.59 L, Hgb 14.6, Hct 43.0, MCV 93.7, MCH 31.8, MCHC 34.0, Plt Count 167, MPV 10.7, Immature Gran % (Auto) 0.400, Neut % (Auto) 71.7 H, Lymph % (Auto) 16.2 L, [place] % (Auto) 10.4 H, Eos % (Auto) 1.0, Baso % (Auto) 0.3, Absolute Neuts (auto) 6.4, Nucleated RBC % 0 01/07/21 16:55: Sodium 138, Potassium 4.6, Chloride 107, Carbon Dioxide 28.0, Anion Gap 3 L, BUN 15, Creatinine 1.13, Est GFR (MDRD) Af Amer 80, Est GFR (MDRD) Non-Af 66, BUN/Creatinine Ratio 13.3, Glucose 100, Calcium 9.2 01/07/21 16:55: Magnesium 1.8 01/08/21 06:50: WBC 7.2, RBC 4.04 L, Hgb 13.0, Hct 37.9 L, MCV 93.8, MCH 32.2 H, MCHC 34.3, Plt Count 136 L, MPV 10.6, Immature Gran % (Auto) 0.300, Neut % (Auto) 65.4, Lymph % (Auto) 18.4 L, [place] % (Auto) 14.8 H, Eos % (Auto) 0.8, Baso % (Auto) 0.3, Absolute Neuts (auto) 4.7, Nucleated RBC % 0 Rhythm: EKG: Atrial flutter with a 2-1 conduction ECHO: Stress Test: Cardiac Cath: PCI: CT Surgery: Holter monitor: EPS: PPM: CXR: Chest CT Scan: Radiography Diagnostic Testing: Radiology Impression Chest X-Ray 01/07/21 16:17 IMPRESSION: Normal x-ray examination of the chest. Electronically Signed: Nacho Parrish MD at 18:54 EST Tel , Service support , Chest CTA 01/07/21 19:35 IMPRESSION: No demonstrated pulmonary embolism or arterial dissection. Significant emphysematous disease. Electronically Signed: Nacho Parrish MD at 20:35 EST Tel , Service support ,
[2021-01-08 07:45] LABS: ALB/GLOB Ratio 0.9 RATIO (0.9-2.4); AST(SGOT) 17 U/L (15-37); Alanine Aminotransfer ALT/SGPT 28 U/L (16-61); Albumin, Serum 2.9 g/dL (3.2-5.0); Alkaline Phosphatase 53 U/L (45-117); Anion Gap 5 (5-15); BUN 13 mg/dL (7-18); BUN/Creat Ratio 14.3 RATIO (10-20); Calcium,Total 8.2 mg/dL (8.5-10.1); Chloride 110 mmol/L (98-107); Cholesterol 104 mg/dL (200); Creatinine, Serum 0.91 mg/dL (0.70-1.30); EST Glomerular Filtration Rate 85 mL/min (>60); Est Glom Filt Rate - Afr Amer 103 mL/min (>60); Estimated Creatinine Clearance 59.52 ml/min; Globulin 3.4 g/dL (2.2-4.2); Glucose 110 mg/dL (74-106); High Density Lipoprotein 38 mg/dL; Potassium 4.1 mmol/L (3.5-5.1); Protein, Total 6.3 g/dL (6.4-8.2); Sodium Level 139 mmol/L (136-145); T4 Free Direct 0.73 ng/dL (0.76-1.46); Triglycerides 56 mg/dL; Troponin-I HS 13 pg/mL (3.0-78.0); Very Low Density Lipoprotein 11 mg/dL (5-40)
[2021-01-08] MEDS: dilTIAZem 25 MG/5 ML Vial 20 MG IV BOLUS (08:40)
[2021-01-08] MEDS: Rivaroxaban 20 MG Tablet PO (10:28)
[2021-01-08] MEDS: Metoprolol(XL)Succ 50 MG Tablet PO (10:28)
[2021-01-08] MEDS: Pantoprazole Sodium 40 MG Tablet PO ×2 (10:28→20:51)
[2021-01-08] MEDS: Sertraline 50 MG Tablet PO (10:28)
--- NOTE | 2021-01-08 11:05 | CASEMGMT ---
RN CM NEWSPAPER STUFFER CM to room to meet with patient for initial transition planning/care coordination assessment. RN JOHN introduced self and role at [facility]. Pt voices understanding and consents to assessment at this time. Pt resting in bed in no distress at this time. Pt is A/O at this time and answers all questions appropriately. Care providers, pharmacy, and demographics verified/updated at this time. PCP: Fanta Gordon DISCHARGE RN Specialists: Dr Choi-cardiology @ [facility], Dr Garcia-pulmonology Preferred Pharmacy: [facility] Retail pharmacy Insurance: [employer] [facility] Prescription Benefit: Yes Living Will/HPOA: Has both LW and HPOA, who is his , Julia LNOK: , Julia Living Arrangements: Lives w/ in multi-level home w/1 step to enter. Denies difficulty w/stairs. Independent w/ADL's. does most home mgmt tasks. Ambulates independently w/no DME. Transportation: Pt states drives self and states no transportation concerns at this time. also drives DME: Denies using any DME and denies needs. HHC/SNF: No hx of either. Denies need for HHC. Pt wishes to return home and states has no concerns with going home at time of discharge. CM to follow for any discharge planning/needs. Pt voices no concerns/needs at this time. Advised pt to ask for CM if any questions/concerns/needs arise. Voices understanding. PLAN: Home w/spousal support and discharge plans in place. Dave MONTENEGRO RN, CM
--- NOTE | 2021-01-08 12:45 | EKG12_ITS ---
Test Reason : A-FIB/FLUTTER Blood Pressure : / mmHG Vent. Rate : 134 BPM Atrial Rate : 134 BPM P-R Int : 148 ms QRS Dur : 126 ms QT Int : 324 ms P-R-T Axes : 000 044 010 degrees QTc Int : 483 ms Likely Flutter with 2:1 Block Right bundle branch block Abnormal ECG When compared with ECG of 07-JAN-2021 16:18, MANUAL COMPARISON REQUIRED, DATA IS UNCONFIRMED Confirmed by MILTON BRADFORD, MAN ([id number]), online editor KAREN KING ([id number]) on 01/09/2021 2:12:58 P M Referred By: DR CONTRERAS Confirmed By:PAU ROSE MD
--- NOTE | 2021-01-08 14:16 | PRO.PCM_ITS ---
Procedure Report Date of Procedure: 01/08/21 CONSCIOUS SEDATION REPORT DATE OF SERVICE: January 08, 2021 BRIEF HISTORY OF PRESENT ILLNESS: The patient is an 80-year-old male who initially presented to the hospital with chest pain and was subsequently admitted for further work-up. The patient was found to be in atrial flutter. He is currently anticoagulated on Xarelto. His last surface echocardiogram demonstrated an ejection fraction of 55%. He does have a known history of sleep apnea, but was intolerant of nocturnal Pap ther apy. Therefore, he now utilizes a dental device while sleeping. PHYSICAL EXAMINATION: VITAL SIGNS: Reviewed and were acceptable. GENERAL: The patient is a male, in no apparent distress, speaking in full sentences. HEENT: Normocephalic, atraumatic. Mucous membranes are moist and pink. Good mouth opening noted. Trachea is midline. Good neck mobility. CHEST: S1, S2 irregularly irregular. No murmurs, rubs or gallops were noted. LUNGS: Clear to auscultation bilaterally without appreciable wheezes, rales or rhonchi. ABDOMEN: Soft, nontender, nondistended. Positive bowel sounds. EXTREMITIES: There is no clubbing, cyanosis or edema. ASA Class: II DESCRIPTION OF PROCEDURE: After confirmation of informed consent, the patient's anesthesia plan was reviewed in detail. Propofol was chosen. Risks and benefits were reviewed and the patient agreed to proceed. At 1403, the patient was given 40 mg of propofol. The patient achieved an appropriate level of sedation and was given a 200 joule synchronized cardioversion by Dr. Salinas at the bedside. This was successful in achieving normal sinus rhythm. The patient was monitored until 1414, at which time he reached his baseline mental status and function. The patient tolerated the procedure well. COMPLICATIONS: None ESTIMATED BLOOD LOSS: None RECOMMENDATIONS: Okay to recover in usual fashion.
--- NOTE | 2021-01-08 14:32 | OP.PCM_ITS ---
Problems Associated Problem List Diagnoses (1) Atrial flutter: Operative Report Date of Procedure: 01/08/21 DC cardioversion. 80-year-old man with a history of atrial flutter on anticoagulation uncontrolled on diltiazem and IV amiodarone. The patient was seen by Dr. Pabon of the [facility]. Informed consent was obtained. The patient had obtain an echocardiogram which demonstrated preserved ejection fraction. Anterior- posterior pads were applied. The patient was then administered 40 mg of intravenous propofol. 200 J of synchronized DC cardioversion biphasic energy were applied with prompt reversal to sinus rhythm. Conclusion: Successful DC cardioversion to sinus rhythm. Continue IV amiodarone until present bag is finished and then transition to p.o. amiodarone. 200 mg daily.
--- NOTE | 2021-01-08 14:54 | PN.HOSP_ITS ---
Subjective Subjective Patient seen and examined. He was admitted with a complaint of chest pain and tightness, and was found to be in afib with RVR. Cardiology is on board, and he was on amiodarone and cardizem drip at time of review. He is being managed for afib with RVR. Patient still complains of chest tightness today. His HR was down in the 90s whilst on cardizem and eliquis. Review of systems otherwise negative. Objective Data Objective Data Vital Signs: Vital Signs Temp Pulse Resp BP Pulse Ox 97.1 F L 88 16 122/74 H 96 01/08/21 11:00 01/08/21 13:15 01/08/21 11:00 01/08/21 13:15 01/08/21 11:00 Oxygen Flow Rate (L/min) 2 Oxygen Delivery Method Room Air Weight: 190 lb 7.67 oz Body Mass Index (BMI) 29.8 Intake & Output: Intake and Output for Last 24 Hours 01/06/21 01/07/21 01/08/21 23:59 23:59 23:59 Intake Total 2819.56 / 2819.56 Output Total 525 / 525 Balance 2294.56 / 2294.56 Lab / Micro Data Result Diagrams: 01/08/21 06:50 01/08/21 06:50 Labs: Laboratory Results - last 24 hr 01/07/21 16:55: WBC 9.0, RBC 4.59 L, Hgb 14.6, Hct 43.0, MCV 93.7, MCH 31.8, MCHC 34.0, RDW Std Deviation 43.7, RDW Coeff of Mariama 12.8, Plt Count 167, MPV 10.7, Immature Gran % (Auto) 0.400, Neut % (Auto) 71.7 H, Lymph % (Auto) 16.2 L, Lee % (Auto) 10.4 H, Eos % (Auto) 1.0, Baso % (Auto) 0.3, Absolute Neuts (auto) 6.4, Absolute Lymphs (auto) 1.45, Nucleated RBC % 0 01/07/21 16:55: Sodium 138, Potassium 4.6, Chloride 107, Carbon Dioxide 28.0, Anion Gap 3 L, BUN 15, Creatinine 1.13, Estim Creat Clear Calc 47.93, Est GFR (MDRD) Af Amer 80, Est GFR (MDRD) Non-Af 66, BUN/Creatinine Ratio 13.3, Glucose 100, Calcium 9.2, Troponin I High Sens 8 01/07/21 16:55: TSH 0.30 L 01/07/21 16:55: Magnesium 1.8 01/07/21 22:30: COVID-19 (SANDY) Negative 01/08/21 01:25: Troponin I High Sens 10 01/08/21 03:18: Troponin I High Sens 12 01/08/21 06:50: WBC 7.2, RBC 4.04 L, Hgb 13.0, Hct 37.9 L, MCV 93.8, MCH 32.2 H, MCHC 34.3, RDW Std Deviation 44.7 H, RDW Coeff of Mariama 13.0, Plt Count 136 L, MPV 10.6, Immature Gran % (Auto) 0.300, Neut % (Auto) 65.4, Lymph % (Auto) 18.4 L, Lee % (Auto) 14.8 H, Eos % (Auto) 0.8, Baso % (Auto) 0.3, Absolute Neuts (auto) 4.7, Absolute Lymphs (auto) 1.33, Nucleated RBC % 0 01/08/21 06:50: Sodium 139, Potassium 4.1, Chloride 110 H, Carbon Dioxide 24.0, Anion Gap 5, BUN 13, Creatinine 0.91, Estim Creat Clear Calc 59.52, Est GFR (MDRD) Af Amer 103, Est GFR (MDRD) Non-Af 85, BUN/Creatinine Ratio 14.3, Glucose 110 H, Calcium 8.2 L, Total Bilirubin 0.50, AST 17, ALT 28, Alkaline Phosphatase 53, Troponin I High Sens 13, Total Protein 6.3 L, Albumin 2.9 L, Globulin 3.4, Albumin/Globulin Ratio 0.9, Triglycerides 56, Cholesterol 104, LDL Cholesterol 55, VLDL Cholesterol 11, HDL Cholesterol 38 L, Free T4 0.73 L Micro: Microbiology 01/07/21 22:30 Mucosa - Nasopharyngeal Respiratory Panel (PCR) - Final Radiography Diagnostic Testing: Radiology Impression Chest X-Ray 01/07/21 16:17 IMPRESSION: Normal x-ray examination of the chest. Electronically Signed: Nacho Parrish MD at 18:54 EST Tel , Service support , Chest CTA 01/07/21 19:35 IMPRESSION: No demonstrated pulmonary embolism or arterial dissection. Significant emphysematous disease. Electronically Signed: Nacho Parrish MD at 20:35 EST Tel , Service support , Echocardiogram 01/08/21 00:38 Interpretation Summary Normal LV size. Left ventricular systolic function is normal. The estimated ejection fraction is 55 %. Pulmonary artery systolic pressure is 50 mmHg. Mild focal aortic valve calcification. Aortic sclerosis, no stenosis. Ordering Physician: Briseida Hopepr Referring Physician: PASTOR ANDRES Performed By: Hellen Ohara, IDANIA, RVT Physical Exam Const alert, oriented x3 and no apparent distress Exam Limitations: no limitations HEENT head/scalp atraumatic and moist oral mucous membranes Head and Scalp: normocephalic Eyes PERRL, EOMs intact bilaterally and conjunctivae normal Neck no lymphadenopathy Resp normal respiratory effort, no use of accessory muscles and clear to auscultation bilaterally Cardio S1 normal heart sound, S2 normal heart sound and no murmurs Cardio Narrative: afib, GI normal to inspection, nondistended, normoactive bowel sounds, soft to palpation, non-tender and non-distended Extremity normal to inspection, full ROM and no clubbing, cyanosis or edema Peripheral Pulses: Yes pulses 2+ throughout Skin no rashes or lesions noted Neuro oriented x3, CN's II-XII intact bilaterally and moves all extremities Sensorium / Orientation: awake and alert Psych affect normal Assessment & Plan Assessment/Plan (1) Tachycardia: (2) Atrial flutter: QUALIFIERS: Atrial flutter type: unspecified Qualified Code(s): I48.92 - Unspecified atrial flutter (3) Chest pain: QUALIFIERS: Chest pain type: unspecified Qualified Code(s): R07.9 - Chest pain, unspecified PLAN: #Afib with RVR * currently on cardizem and amiodarone drips * troponinx 3 wre negative * 2D echo: EF of 55% with no regional wall motion abnormalities noted and pulmonary artery pressure of 50 mmHg. * cardiology on board. Had successful cardioversion this afternoon. * Must be noted that patient is s/p ablation about 6 years ago * On Xarelto. * #COPD: Breathing treatments bronchodilators. Titrate oxygen to maintain satura tion above 90%. #Abnormal thyroid function. * TSH was low at 0.3 and free T4 was also low at 0.73 * Will need repeat thyroid function tests once acute illness is over. Patient also on amiodarone which could affect thyroid function. * #Anxiety and depression: On sertraline #GERD: On PPI #DVT prophylaxis: On Xarelto Charges/Coding Visit Charges Inpatient E&M: 82592 Subs Hosp L2
[2021-01-08] MEDS: Amiodarone 200 MG Tablet PO (19:00)
--- NOTE | 2021-01-08 20:15 | PCM.HOSP.N ---
Hospitalist Note Patient with severe frontal throbbing headache without photophobia or phonophobia. Has been intermittent x 2 weeks, worse currently, not improved with tylenol. Will obtain CT head to be cautious.
--- NOTE | 2021-01-08 20:28 | CT_ITS ---
STUDY: CT BRAIN WITHOUT CONTRAST REASON FOR EXAM: Male, 80 years old. Severe headache TECHNIQUE: Transaxial CT imaging of the brain was performed without administration of intravenous contrast material. Individualized dose optimization techniques were used for this CT. COMPARISON: None FINDINGS: Normal calvarium. Normal soft tissues. Normal size ventricles and extra-axial spaces for the patient''s age. Normal white matter tracts of the cerebral hemispheres. Normal basal ganglia and thalami. Normal brainstem. Normal cerebellum. There is no intracranial hemorrhage. There are no findings of an acute ischemic infarction. Normal visualized paranasal sinuses. ASPECTS 10 CT/Brain/Head without Contrast IMPRESSION: There are no acute intracranial findings. Electronically Signed: Costa Mera MD at 20:46 EST , Service support ,
[2021-01-08] MEDS: Senna/Docusate Sodium 1 Tablet 2 TABLET PO (20:49)
[2021-01-08] MEDS: DiphenhydrAMINE 25 MG Capsule PO (20:51)
[2021-01-08] MEDS: Acetaminophen 500 MG Tablet PO (20:51)
[2021-01-08] MEDS: Atorvastatin Calcium 20 MG Tablet PO (20:51)
[2021-01-09] VITALS (12 sets, daily range): BP systolic 110–171; BP diastolic 63–108; PULSE 61–86; RESP 14–22; TEMP 36.6–36.9; O2SAT 86–97
[2021-01-09] MEDS: 0.9% Normal Saline 1,000 ML 150 ML IV (02:41)
[2021-01-09] MEDS: Acetaminophen 325 MG Tablet 650 MG PO ×2 (04:20→10:16)
[2021-01-09] MEDS: hydrALAZINE 20 MG/ML Vial 10 MG IV (04:37)
[2021-01-09] MEDS: Budesonide Respules 0.5 MG/2 ML AMPUL.NEB. INHALATION (04:39)
[2021-01-09] MEDS: Albuterol 2.5 MG/3 ML VIAL.NEB. INHALATION (04:39)
[2021-01-09] MEDS: Furosemide 40 MG/4 ML Vial IV (05:03)
--- NOTE | 2021-01-09 05:11 | PCM.HOSP.N ---
Hospitalist Note Patient with ongoing IVFs, more dypsnea, crackles on exam, will d/c IVFs and administer lasix 40 mg IV x 1.
[2021-01-09 07:29] LABS: Absolute Lymphocyte Count 0.89 X10^3/uL (0.83-4.51); Basophil# 0.05 X10^3/uL; Basophil% 0.4 % (0-1); Eosinophil# 0.04 X10^3/uL; Eosinophils% 0.3 % (0-5); Hematocrit 40.8 % (40-54); Hemoglobin 14.1 g/dL (13.0-16.5); Lymphocyte # 0.89 X10^3/ul (0.83-4.51); Lymphocyte % 7.3 % (19-41); Mean Corp Hgb Conc 34.6 g/dL (32-36); Mean Corpuscular Volume 92.5 fL (80-94); Mean Platelet Vol. 11.4 fl (6.2-12.0); Monocyte# 1.09 X10^3/uL; NRBC Flagged by Analyzer 0 % (0-5); Neutrophil # 9.97 X10^3/uL (2.7-7.7); Neutrophil % 82.1 % (47-70); Platelet Count 144 K/mm3 (150-450); RBC Distribution Width CV 13.2 % (11.6-14.6); RBC Distribution Width SD 44.7 fl (35.1-43.9); Red Blood Count 4.41 M/mm3 (4.6-6.2); White Blood Count 12.2 K/mm3 (4.4-11.0)
--- NOTE | 2021-01-09 07:38 | PCM.PN.CARD ---
Subjective Subjective Patient seen and evaluated. Did complain of chest discomfort headache and high blood pressure in the night with some shortness of breath. Was evaluated by the hospitalist. IV fluids discontinued. CT scan of the head was unremarkable. Objective Data Vital Signs: Vital Signs Temp Pulse Resp BP Pulse Ox 97.8 F 80 16 121/77 H 95 01/09/21 06:32 01/09/21 06:32 01/09/21 06:32 01/09/21 06:32 01/09/21 06:32 Oxygen Flow Rate (L/min) 2 Oxygen Delivery Method Nasal Cannula Weight: 192 lb 3.889 oz Body Mass Index (BMI) 29.8 Intake & Output: Intake and Output for Last 24 Hours 01/07/21 01/08/21 01/09/21 23:59 23:59 23:59 Intake Total 5042.24 / 5042.24 1192.5 / 1192.5 Output Total 525 / 525 1000 / 1000 Balance 4517.24 / 4517.24 192.5 / 192.5 Lab / Micro Data Result Diagrams: 01/09/21 06:50 01/08/21 06:50 Labs: Laboratory Results - last 24 hr 01/08/21 06:50: Sodium 139, Potassium 4.1, Chloride 110 H, Carbon Dioxide 24.0, Anion Gap 5, BUN 13, Creatinine 0.91, Estim Creat Clear Calc 59.52, Est GFR (MDRD) Af Amer 103, Est GFR (MDRD) Non-Af 85, BUN/Creatinine Ratio 14.3, Glucose 110 H, Calcium 8.2 L, Total Bilirubin 0.50, AST 17, ALT 28, Alkaline Phosphatase 53, Troponin I High Sens 13, Total Protein 6.3 L, Albumin 2.9 L, Globulin 3.4, Albumin/Globulin Ratio 0.9, Triglycerides 56, Cholesterol 104, LDL Cholesterol 55, VLDL Cholesterol 11, HDL Cholesterol 38 L, Free T4 0.73 L 01/09/21 06:50: WBC 12.2 H, RBC 4.41 L, Hgb 14.1, Hct 40.8, MCV 92.5, MCH 32.0, MCHC 34.6, RDW Std Deviation 44.7 H, RDW Coeff of Mariama 13.2, Plt Count 144 L, MPV 11.4, Immature Gran % (Auto) 0.900, Neut % (Auto) 82.1 H, Lymph % (Auto) 7.3 L, [place] % (Auto) 9.0, Eos % (Auto) 0.3, Baso % (Auto) 0.4, Absolute Neuts (auto) 10.0 H, Absolute Lymphs (auto) 0.89, Nucleated RBC % 0 Micro: Microbiology 01/07/21 22:30 Mucosa - Nasopharyngeal Respiratory Panel (PCR) - Final Cardiology Labs/Tests 01/08/21 06:50: Sodium 139, Potassium 4.1, Chloride 110 H, Carbon Dioxide 24.0, Anion Gap 5, BUN 13, Creatinine 0.91, Est GFR (MDRD) Af Amer 103, Est GFR (MDRD) Non-Af 85, BUN/Creatinine Ratio 14.3, Glucose 110 H, Calcium 8.2 L, Total Bilirubin 0.50, Triglycerides 56, Cholesterol 104, LDL Cholesterol 55, VLDL Cholesterol 11, HDL Cholesterol 38 L 01/09/21 06:50: WBC 12.2 H, RBC 4.41 L, Hgb 14.1, Hct 40.8, MCV 92.5, MCH 32.0, MCHC 34.6, Plt Count 144 L, MPV 11.4, Immature Gran % (Auto) 0.900, Neut % (Auto) 82.1 H, Lymph % (Auto) 7.3 L, [place] % (Auto) 9.0, Eos % (Auto) 0.3, Baso % (Auto) 0.4, Absolute Neuts (auto) 10.0 H, Nucleated RBC % 0 Rhythm: EKG: ECHO: Stress Test: Cardiac Cath: PCI: CT Surgery: Holter monitor: EPS: PPM: CXR: Chest CT Scan: Radiography Diagnostic Testing: Radiology Impression Echocardiogram 01/08/21 00:38 Interpretation Summary Normal LV size. Left ventricular systolic function is normal. The estimated ejection fraction is 55 %. Pulmonary artery systolic pressure is 50 mmHg. Mild focal aortic valve calcification. Aortic sclerosis, no stenosis. Ordering Physician: Briseida Hopper Referring Physician: PASTOR ANDRES Performed By: Hellen Ohara, FESTUSCS, RVT Brain CT 01/08/21 20:28 IMPRESSION: There are no acute intracranial findings. Electronically Signed: Costa Mera MD at 20:46 EST , Service support , Physical Exam Const alert, oriented x3 and no apparent distress General Appearance: cooperative HEENT hearing grossly normal bilaterally Head and Scalp: atraumatic Eyes EOMs intact bilaterally Neck General: normal visual inspection Chest inspection of chest normal and palpation of chest normal Resp normal respiratory effort Auscultation: clear to auscultation bilaterally Cardio regular rate, regular rhythm, S1 normal heart sound and S2 normal heart sound Jugular Venous Distention: JVD GI normal to inspection, nondistended, normoactive bowel sounds Extremity normal capillary refill and no pedal edema Peripheral Pulses: Yes pulses 2+ throughout and femoral pulses present Skin no rashes or lesions noted Neuro oriented x3 and CN's II-XII intact bilaterally Psych Appearance: grossly normal and appropriate Assessment & Plan Assessment/Plan (1) Atrial flutter: QUALIFIERS: Atrial flutter type: unspecified Qualified Code(s): I48.92 - Unspecified atrial flutter PLAN: He did present with atrial flutter with a rapid ventricular response rate and eventually needed to be DC cardioverted. He is maintaining sinus rhythm at this time. The plan will be to continue him on the oral amiodarone as well as the beta-hermila and the Xarelto. (2) HTN (hypertension): QUALIFIERS: Hypertension type: essential hypertension Qualified Code(s): I10 - Essential (primary) hypertension PLAN: He does have a history of hypertension. This appears to be fairly well controlled but I would recommend that we continue the beta-hermila and add losartan with hydrochlorothiazide to the regimen due to the elevated pulmonary pressures. (3) Diastolic CHF: PLAN: He did have mild diastolic heart failure. He is in sinus rhythm at this time and his blood pressure did go up. He also did experience mild chest discomfort. It may be prudent to exclude coronary ischemia before discharging him. I would like us to obtain a pharmacologic myocardial perfusion stress test.
[2021-01-09 07:54] LABS: Anion Gap 7 (5-15); BUN 14 mg/dL (7-18); BUN/Creat Ratio 14.1 RATIO (10-20); Calcium,Total 8.7 mg/dL (8.5-10.1); Chloride 110 mmol/L (98-107); Creatinine, Serum 0.99 mg/dL (0.70-1.30); EST Glomerular Filtration Rate 77 mL/min (>60); Est Glom Filt Rate - Afr Amer 93 mL/min (>60); Estimated Creatinine Clearance 54.71 ml/min; Glucose 133 mg/dL (74-106); Potassium 3.4 mmol/L (3.5-5.1); Sodium Level 140 mmol/L (136-145)
[2021-01-09] MEDS: Metoprolol(XL)Succ 50 MG Tablet PO (10:11)
[2021-01-09] MEDS: Sertraline 50 MG Tablet PO (10:11)
[2021-01-09] MEDS: hydroCHLOROthiazide 25 MG Tablet PO (10:11)
[2021-01-09] MEDS: Losartan Potassium 50 MG Tablet PO (10:11)
[2021-01-09] MEDS: Pantoprazole Sodium 40 MG Tablet PO (10:11)
[2021-01-09] MEDS: Amiodarone 200 MG Tablet PO (10:13)
--- NOTE | 2021-01-09 13:21 | STRESSREP_ITS ---
Stress Test Report Pharmacologic mild cardial perfusion stress test. 80-year-old male with a history of chest pain, shortness of breath, atrial fibrillation. Stress protocol: Resting EKG demonstrates normal sinus rhythm with right bundle branch block rate of 79 bpm is noted occasional premature ventricular complexes present. 0.4 mg of regadenoson was infused per usual protocol followed by rapid intravenous saline flush injection continuous EKG monitoring was performed. The maximum heart rate attained was 102 bpm which was 73% of max infected heart rate the maximum workload was 1 metabolic equivalent. At rest there were no ST or T wave changes noted to suggest abnormal flow reserve and at peak infusion nonspecific ST changes were noted with did not meet the criteria for ischemia. No clinical angina was noted. The final blood pressure was 140/72 mmHg. Myocardial perfusion protocol. 12.0 mCi of technetium 99m sestamibi was injected at rest. 0.4 mg of regadenoson was infused per usual protocol. At peak infusion 32.8 mCi of technetium 99m sestamibi was injected stress images were obtained stress and rest images were reconstructed and compared in the short axis vertical long and horizontal long axis. Gated images were also obtained. Perfusion SPECT analysis: Review of the stress images demonstrate normal uptake of tracer noted in all a reas of the myocardium. The resting images similarly demonstrated normal uptake of tracer noted in all areas of the myocardium. No areas of reversibility are noted to suggest ischemia and no previous infarct is noted. Gated SPECT analysis: The gated ejection fraction is 57%. Conclusion: Normal pharmacologic myocardial perfusion stress test. Preserved ejection fraction.
--- NOTE | 2021-01-09 13:47 | NURSING ---
Soaps Suds enema preformed at this time
[2021-01-09] MEDS: Rivaroxaban 20 MG Tablet PO (14:06)
--- NOTE | 2021-01-09 14:36 | CASEMGMT ---
Pt has been independent in room and states no concerns with going home at time of discharge. SSthelen WALKER CM
--- NOTE | 2021-01-09 16:12 | DS.PCM_ITS ---
Providers Date of Admission: 01/07/21 Primary Care Physician: MIESHA Moroe Consultations 01/08/21 00:38 Consult: Cardiology Routine Consulting Provider: Mejia Salinas Reason for Consult: Atrial flutter w/ RVR EMERGENT Consult: No MD Notified: Yes Date Notified: 01/07/21 Time Notified: 23:37 Method of Notification: cortext Reason For Visit: ATRIAL FLUTTER WITH RVR, CHEST PAIN Diagnosis Discharge Diagnosis (1) Atrial flutter: Status: Acute Code(s): I48.92 - Unspecified atrial flutter Qualifiers: Atrial flutter type: unspecified Qualified Code(s): I48.92 - Unspecified atrial flutter (2) HTN (hypertension): Status: Chronic Code(s): I10 - Essential (primary) hypertension Qualifiers: Hypertension type: essential hypertension Qualified Code(s): I10 - Essential (primary) hypertension (3) Diastolic CHF: Status: Acute Code(s): I50.30 - Unspecified diastolic (congestive) heart failure Medications at Discharge Home Medications albuterol sulfate [Ventolin HFA] 1 - 2 puff INHALATION Q6H PRN PRN 01/16/13 sertraline 50 mg PO DAILY 01/16/13 simvastatin 40 mg PO QHS 01/16/13 Beclomethasone Diprop Inhaler [Qvar 80 Mcg Inhaler] 1 puff INHALATION BID 03/19/14 rivaroxaban 20 mg PO DAILY #30 tab 04/01/14 diphenhydramine-acetaminophen [Tylenol PM Extra Strength] 2 tab PO QHS 06/21/16 lansoprazole 30 mg capsule,delayed release 30 mg PO BID 10/17/19 amiodarone 200 mg PO DAILY #30 tab 01/09/21 hydrochlorothiazide 25 mg PO DAILY #30 tab 01/09/21 losartan 50 mg PO DAILY #30 tab 01/09/21 metoprolol succinate 50 mg PO DAILY #30 tab 01/09/21 Hospital Course Operations None Procedures Cardioversion and Nuclear stress test Summary of Care Provided Minutes Spent on Discharge: 45 Hospital Course: Patient is an 80-year-old male with a past medical history as outlined who was admitted through the ED on 01/07/2021 with a complaint of tight bandlike chest discomfort which started upon him waking up on the morning of admission and worsened with breathing. He had assisted palpitations. He also complained of subjective fever and chills with ear discomfort. He had had a Covid test which was negative on 01/01/2021. Patient was vaccinated and had also had his booster shot. He went to see his PCP after being seen at the urgent care earlier he was subsequently referred to the ED on account of noted tachycardia, rhythm unclear. In the ED, CT of the chest was negative for any evidence of PE or arterial dissection. His heart rate was initially 141. Chest x-ray showed no acute cardiopulmonary findings. EKG showed sinus tachycardia versus atrial flutter with 2-1 block. He was given a Cardizem bolus but rate did not improve. He was subsequently given Lopressor and then given adenosine and rate was confirmed to be atrial flutter with RVR. He was subsequently started on amiodarone drip after being given amiodarone bolus and admitted and managed for A. fib with RVR. He did have a history of A. fib with RVR and had had ablation done about 6 years prior to admission. Cardiology was consulted. Patient had DC cardioversion on 01/08/2021 with conversion to normal sinus rhythm. Hospital course was complicated by acute onset shortness of breath in the early hours of 01/09/2021 with some associated chest pain. Patient states this improved after he took Lasix. Patient therefore had a stress test as ordered by cardiology which was negative for any evidence of ischemia. His medications were adjusted per cardiology he was discharged home on 01/09/2021. He is to follow-up with his PCP and cardiology. Patient also complained of some left ear pain and said he had had an accumulation of wax in his ear and had been washed out but was not showed all came out. Patient counseled to follow-up with ENT on outpatient basis. Patient seen and examined prior to discharge. He had no acute complaints. Review of systems otherwise negative. Labs and vitals reviewed. Home medicatio n reviewed and reconciled. Shortness of breath that he complained about earlier on had resolved. Physical Exam Const alert, oriented x3 and no apparent distress General Appearance: cooperative, comfortable and well kempt Orientation / Consciousness: awake Exam Limitations: no limitations HEENT normocephalic, head/scalp atraumatic and hearing grossly normal bilaterally Eyes PERRL, EOMs intact bilaterally and conjunctivae normal Neck no lymphadenopathy, supple and no JVD Resp normal respiratory effort, no use of accessory muscles and clear to auscultation bilaterally Cardio regular rate, regular rhythm, S1 normal heart sound, S2 normal heart sound and no murmurs GI normal to inspection, nondistended, normoactive bowel sounds, soft to palpation, non-tender and non-distended Extremity normal to inspection, full ROM and no clubbing, cyanosis or edema Skin no rashes or lesions noted Neuro oriented x3, CN's II-XII intact bilaterally and moves all extremities Sensorium / Orientation: awake and alert Psych affect normal Weight / BMI Weight Weight: 192 lb 3.889 oz Body Mass Index (BMI) 29.8 ABG / Lab / Microbiology Data Result Diagrams: 01/09/21 06:50 01/09/21 06:50 Laboratory: Laboratory Results - last 24 hr 01/09/21 06:50: WBC 12.2 H, RBC 4.41 L, Hgb 14.1, Hct 40.8, MCV 92.5, MCH 32.0, MCHC 34.6, RDW Std Deviation 44.7 H, RDW Coeff of Mariama 13.2, Plt Count 144 L, MPV 11.4, Immature Gran % (Auto) 0.900, Neut % (Auto) 82.1 H, Lymph % (Auto) 7.3 L, Titus % (Auto) 9.0, Eos % (Auto) 0.3, Baso % (Auto) 0.4, Absolute Neuts (auto) 10.0 H, Absolute Lymphs (auto) 0.89, Nucleated RBC % 0 01/09/21 06:50: Sodium 140, Potassium 3.4 L, Chloride 110 H, Carbon Dioxide 23.0, Anion Gap 7, BUN 14, Creatinine 0.99, Estim Creat Clear Calc 54.71, Est GFR (MDRD) Af Amer 93, Est GFR (MDRD) Non-Af 77, BUN/Creatinine Ratio 14.1, Glucose 133 H, Calcium 8.7 Microbiology: Microbiology 01/07/21 22:30 Mucosa - Nasopharyngeal Respiratory Panel (PCR) - Final Radiography Diagnostic Testing: Radiology Impression Brain CT 01/08/21 20:28 IMPRESSION: There are no acute intracranial findings. Electronically Signed: Costa Mera MD at 20:46 EST , Service support , D/C Instructions Discharge Diet: Low fat / Low cholesterol Discharge Activity: Return to Normal Activity Weight Bearing Status: Weight bearing as tolerated Call your doctor if you observe: Fever of 101 or Higher, Shortness of breath, Fainting spells, Swelling in the ankles, Chest pain and Increased palpitations (irregular heartbeat) Meaningful Use Info Meaningful Use Diagnoses (Choose all that apply): None applicable Discharge Plan Admission Admit Date/Time: 01/07/21 23:38 Primary Reason for Your Visit: afib with RVR Attending Provider: Molly Toney Primary Care Provider: Fanta Gordon NP Consulting Providers: Mejia Salinas Instructions Patient Instructions: Understanding Atrial Fibrillation Discharge Orders/Prescriptions Prescriptions: New losartan 50 mg Tablet 50 mg PO DAILY Qty: 30 RF: 1 amiodarone 200 mg Tablet 200 mg PO DAILY Qty: 30 RF: 1 metoprolol succinate 50 mg Tablet Extended Release 24 Hr 50 mg PO DAILY Qty: 30 RF: 1 hydrochlorothiazide 25 mg Tablet 25 mg PO DAILY Qty: 30 RF: 1 Continued simvastatin 40 MG tablet 40 mg PO QHS RF: 0 albuterol sulfate [Ventolin HFA] 1 INHALER inhaler 1 - 2 puff inhalation Q6H PRN PRN (Reason: Asthma) RF: 0 sertraline 50 MG tablet 50 mg PO DAILY RF: 0 lansoprazole 30 mg capsule,delayed release(DR/EC) 30 mg PO BID RF: 0 Beclomethasone Diprop Inhaler [Qvar 80 Mcg Inhaler] 1 PUFF inhaler 1 puff inhalation BID RF: 0 rivaroxaban 20 MG tablet 20 mg PO DAILY Qty: 30 RF: 6 diphenhydramine-acetaminophen [Tylenol PM Extra Strength] 1 EACH tablet 2 tab PO QHS RF: 0 Discontinued metoprolol succinate 100 MG tablet 50 mg PO DAILY RF: 0 Referrals / Follow Up: Mejia Salinas MD [STAFF PHYSICIAN] - Within 1 Month Jesus Turner MD [STAFF PHYSICIAN] - Within 1 Month Fanta Gordon NP, [employer]ANCE [employer] CONSULTANT-[facility] [Primary Care Provider] - Within 2 Weeks Disposition Disposition (needs filled in before D/C Order can be placed): Home, Self Care Charges/Coding Visit Charges Inpatient E&M: 48511 Disch Hosp
== END 2021-01-09 17:25 | disposition home or self-care (01) | DRG 308 ==
LOC: ED 21:47 → PCU 23:36
PROVIDERS: Admitting Provider Family Medicine; Emergency Provider Emergency Medicine; PCP Nurse Practitioner; Visit Provider Student in an Organized Health Care Education/Training Program
DX: I48.92 Unspecified atrial flutter (principal); I50.31 Acute diastolic (congestive) heart failure; I11.0 Hypertensive heart disease with heart failure; I48.0 Paroxysmal atrial fibrillation; B34.9 Viral infection, unspecified; J44.9 Chronic obstructive pulmonary disease, unspecified; F41.9 Anxiety disorder, unspecified; F32.A Depression, unspecified; R94.6 Abnormal results of thyroid function studies; K21.9 Gastro-esophageal reflux disease without esophagitis; R51.9 Headache, unspecified; Z79.899 Other long term (current) drug therapy; Z87.891 Personal history of nicotine dependence; Z79.51 Long term (current) use of inhaled steroids
CPT/HCPCS: 36415; 70450; 71045; 71275; 78452; 80048; 80053; 80061; 83735; 84439; 84443; 84484; 85025; 87633; 87635; 92960; 93005; 93017; 93306; 94640; 99251; 99285; A9500; J7030; J7040; Q9957; Q9967; U0005; A4216; C8929; G0463; J0153; J1940; J2785; J3490; U0003

== ENCOUNTER → 2021-02-10 12:13 | Outpatient (CLI) | payer MEDICARE, SELFPAY ==
[2021-02-10 14:27] LABS: T4 Free Direct 0.86 ng/dL (0.76-1.46); Thyroid Stim Hormone (TSH) 0.44 uIU/mL (0.358-3.74)
== END ==
LOC: LAB 12:14
PROVIDERS: PCP Nurse Practitioner; Visit Provider Nurse Practitioner Family
DX: E78.5 Hyperlipidemia, unspecified (principal); I48.0 Paroxysmal atrial fibrillation; R79.89 Other specified abnormal findings of blood chemistry
CPT/HCPCS: 36415; 84439; 84443

== ENCOUNTER → 2021-12-22 | Outpatient (CLI) | payer OTHER, SELFPAY ==
[2021-12-22 12:06] LABS: AST(SGOT) 19 U/L (15-37); Alanine Aminotransfer ALT/SGPT 27 U/L (16-61); Albumin, Serum 3.7 g/dL (3.2-5.0); Alkaline Phosphatase 61 U/L (45-117); Bilirubin, Direct 0.13 mg/dL (0.00-0.30); Cholesterol 145 mg/dL (200); Globulin 3.7 g/dL (2.2-4.2); High Density Lipoprotein 42 mg/dL; Protein, Total 7.4 g/dL (6.4-8.2); Triglycerides 128 mg/dL; Very Low Density Lipoprotein 26 mg/dL (5-40)
== END | disposition home or self-care (01) ==
LOC: LAB 11:30
PROVIDERS: PCP Nurse Practitioner Family; Visit Provider Internal Medicine Cardiovascular Disease
DX: E78.00 Pure hypercholesterolemia, unspecified (principal)
CPT/HCPCS: 36415; 80061; 80076

== ENCOUNTER → 2022-02-10 | Outpatient (CLI) | payer MEDICARE, SELFPAY ==
--- NOTE | 2022-02-10 09:40 | RAD_ITS ---
STUDY: AIR CONTRAST UPPER GI SERIES and esophagram. REASON FOR EXAM: Male, 81 years old. K21.9 - Gastro-esophageal reflux disease without esophagitis FLUOROSCOPY TIME (if supplied): (53 seconds) minutes/seconds. 21 images were obtained. TECHNIQUE: Single CONTRAST AND AIR CONTRAST FLUOROSCOPIC IMAGES. COMPARISON: None. FINDINGS: The cervical esophagus demonstrates normal motility without aspiration. There is no stricture or extrinsic mass effect. No intraluminal polypoid mass is identified. The thoracic esophagus distends well without stricture or mucosal fold thickening. No mucosal ulcerations are identified. There is no extrinsic mass effect. There are no diverticula. No hiatal hernia or gastroesophageal reflux was identified. The patient ingested a 12 mm tablet of barium. The tablet is a strap at the gastroesophageal junction. The stomach distends well without mucosal fold thickening or mucosal ulceration. There is no intraluminal mass. The duodenal bulb is freely distensible without deformity or ulceration. The duodenal sweep is normal in position and caliber. RAD/Upper GI w/BA Swallow IMPRESSION: No evidence of reflux at this time. The ingested 12 mm tablet and barium is trapped at the gastroesophageal junction. Electronically Signed: Mathew Gamboa MD at 10:36 [facility] ,
== END | disposition home or self-care (01) ==
PROVIDERS: PCP Nurse Practitioner Family; Referring Provider Internal Medicine; Visit Provider Internal Medicine
DX: K21.9 Gastro-esophageal reflux disease without esophagitis (principal)
CPT/HCPCS: 74246

== ENCOUNTER → 2022-04-05 | Outpatient (CLI) | payer MEDICARE, SELFPAY ==
--- NOTE | 2022-04-05 16:26 | PFTCOMP ---
COMPLETE PULMONARY FUNCTION TEST INTERPRETATION Brief HPI: Patient is an 81-year-old male, currently under the care of Dr. Escamilla, who presents to [facility] for complete pulmonary function tests secondary to diagnosis of COPD. Respiratory therapist reports good effort and reproducible results. Interpretation: Forced expiration spirometry shows a mild large airways obstructive ventilatory defect with an FEV1 of 127% predicted. There is a significant bronchodilator response in FEV1 by strict ATS criteria. Spirograms are of good quality and plateau slowly, indicating slowly emptying areas of the lungs. The respiratory flow volume loop shows decreased expiratory flow rates at high lung volumes consistent with small airways obstruction. Lung volumes by body plethysmography show a normal total lung capacity at 6.53 L, 114% predicted. All other lung volumes are within normal limits. Diffusion capacity by carbon monoxide is normal at 118% predicted. The airway resistance is normal. Compared to previous pulmonary function tests from 04/04/2015, there has been no significant change. Impression: Fully reversible mild large airways obstructive ventilatory defect with preserved lung volumes and diffusing capacity
== END | disposition home or self-care (01) ==
LOC: PSN 13:10
PROVIDERS: PCP Nurse Practitioner Family; Visit Provider Internal Medicine
DX: J44.9 Chronic obstructive pulmonary disease, unspecified (principal)
CPT/HCPCS: 94060; 94726; 94729

== ENCOUNTER → 2022-04-28 | Outpatient (CLI) | payer MEDICARE, SELFPAY | END | disposition home or self-care (01) | LOC: PSN 12:37 | PROVIDERS: PCP Nurse Practitioner Family; Referring Provider Internal Medicine; Visit Provider Internal Medicine | DX: I95.1 Orthostatic hypotension (principal); I48.0 Paroxysmal atrial fibrillation | CPT/HCPCS: 93225; 93226 ==

== ENCOUNTER 2022-08-10 11:30 | Outpatient (RCR) | payer MEDICARE, SELFPAY ==
--- NOTE | 2022-07-07 13:39 | HP.PTEVAL_ITS ---
Patient's Visit Information IRENE AMOS is a 81 year old M referred to Physical Therapy by MIESHA Monroe with a diagnosis of Vertigo. Date of Evaluation: 07/07/22 Physical Therapist: MARIVEL Arechiga - Visit Plan Frequency: 1x/Week Duration: 6 Weeks Plan: 1X/ for 6 weeks for c-spine neck rotation, progressive VOR exercises, possibly adaptation exercises from the ground to standing etc. - Subjective Pt first experienced vertigo in 1984 and was standing at end of a confrence table and all of the sudden the room started spinning. They ran a bunch of tests and were all negative. From that point on he carried a bottle of Antivert and did not really have issues until 5 years ago and now experiencing symptoms everyday. Could be reaching down to get something off the low shelf, rolling over in bed but not sure what side but that started most recently (dizziness would last about 5 seconds) but now starting to interfere with bending down and straighten up and feels nausea. Couple instances he would just be standing at a construction site and he would just fall down and he was dizzy and the dizziness lasted a few seconds before fall down. He is not dizzy all the time but it is just random incidences. He has no head, eye pressure. But he feels like he has issues with his L side jaw and ear but it was plugged up and they cleaned it out. He feels like it has progressivly gotten worse but they have changed his BP med recently also. He has ACEVEDO occ and thinks they might be sinus related. - Objective Gait: Normal gait pattern with slight veering at times... walking with turning head to the L causes some veering. Standing heel and toe raises: able without UE support. Sit to stand: able to get up without using his UE. C-spine AROM: Rotation L 50% and L 75%, Ext to neutral, flexion 75%. FGA: 29. R Hallpike negative for dizziness and nystagmus. L Hallpike negative for dizziness and nystagmus. VOR: Smooth Pursuit horizontal hard to focus after 10 seconds and slight dizziness. Smooth pursuit vertical 30 seconds with no issue. head and eyes horizontal a little dizzy and not feel good in stomach.... repeated standing on second attempt and was able to do for 60 seconds but did feel dizzy after but subsided quickly. Staring at an x with horizontal head shakes and he did get dizzy when he stopped after about 30 seconds - Balance/Special Test Scores Functional Gait Assessment Score: 29 % Disability: 3.3400 Dizziness Score: 22 - Goals Goal 1:: I HEP Goal Time Frame: 4-6 Weeks Goal 2:: Be able to walk with horizontal head turns without dizziness or veering Goal Time Frame: 4-6 Weeks Goal 3:: be able to rotate to the L without having to turn his body Goal Time Frame: 4-6 Weeks - Rehabilitation Potential Physical Therapy Diagnosis: horizontal VOR issue and pt probably changes position too fast causing dizziness for a few seconds... pt to move slower especailly with changing elevation such as up from the floor or supine to sit. Rehabilitation Potential: Good - Anticipated Interventions Patient/Client Instruction: Educate patient on: Condition, Plan of Care For the Purpose of:: To improve muscle performance and motor function, To improve ability to perform ADL's, To increase tolerance to activity/condition/position, To improve performance and independence with ADL's, To improve gait and locomotor functions, To improve balance Therapeutic Exercise to Include: Endurance training, Balance training, Gait and locomotor training, Neuromotor development For the Purpose of:: To improve nutrient delivery to tissue, To improve muscle performance and motor function, To improve ability to perform ADL's, To increase tolerance to activity/condition/position, To improve performance and independence with ADL's, To decrease level of supervision to perform tasks, To improve ability of physical actions for home/community/work/leisure, To improve gait and locomotor functions, To improve health of tissue Functional Training to Include: Gait training For the Purpose of:: To improve gait and locomotor functions Thank you for the opportunity to evaluate your patient. For Medicare and Medicare HMO plans, please review the plan of care and approve it. It will need to be FAXED BACK to us at [phone] for Medicare purposes. For Medicare only, by signing this I certify the plan of care. Please let me know if there are questions or concerns regarding this plan of care. Physician Signature: Date :
--- NOTE | 2022-08-10 12:11 | HP.PTDCSUM_ITS ---
It has been my pleasure to treat IRENE AMOS referred by MIESHA Monroe, with the diagnosis of Vertigo for a total of 4 visit(s). Discharge Date: 08/10/22 Please see the following information for a summary of their discharge status. Subjective: Pt reports that he is still having issues when he has to get something off the bottom shelf. Notices that if he moves too fast it is harder and then he is off balance and slightly dizzy for a few seconds. Pt had a spell last night he got out of his chair and walked into the kitchen and forgot what he was doing for a few seconds and he has not had that before, he does have A- fib and if that happens again he will contact his Heart Dr. % Improvement: 40 Objective/Function: Pt had slight unsteadiness with floor to overhead reaching but did better when he slowed down. Not sure if habituation exercises will help or if related to change in elevation/BP meds. Pt will try the exercises at home and continue with his walking with head turns as well. Pt L mid trap and levator are tight and gave the pt a hep levator stretch Goal 1:: I HEP Goal Progress: Goal Met Goal 2:: Be able to walk with horizontal head turns without dizziness or veering Goal Progress: Goal Met Goal 3:: be able to rotate to the L without having to turn his body Goal Progress: Goal Met Plan: DC PT to HEP. If pt has another spell he will contact his Dr. Discharge Comments: DC PT to HEP If there are questions or concerns regarding this patient's physical therapy, please feel free to call me at [phone]. Thank you for the referral of this patient. Sincerely, Renetta Quezada, MPT Balance/Gait/Functional tests - Balance/Special Test Scores Functional Gait Assessment Score: 29 % Disability: 3.3400 Dizziness Score: 20
== END 2022-08-10 19:00 | disposition home or self-care (01) ==
LOC: PT 11:30
PROVIDERS: PCP Nurse Practitioner Family; Referring Provider Nurse Practitioner Family; Visit Provider Nurse Practitioner Family
DX: R42 Dizziness and giddiness (principal)
CPT/HCPCS: 97110; 97161; 97530

== ENCOUNTER 2022-10-28 13:02 | Emergency (ER) | payer MEDICARE, SELFPAY ==
[2022-10-28 13:03] VITALS: BP 77/56; PULSE 83; RESP 18; TEMP 36.1; O2SAT 94
[2022-10-28 13:10] VITALS: BP 85/57; PULSE 66; RESP 18; O2SAT 94
[2022-10-28 14:01] VITALS: BP 131/70; PULSE 62; RESP 18; O2SAT 96; BMI 2725.8
--- NOTE | 2022-10-28 14:02 | EKG12_ITS ---
Test Reason : CP Blood Pressure : / mmHG Vent. Rate : 066 BPM Atrial Rate : 066 BPM P-R Int : 144 ms QRS Dur : 122 ms QT Int : 418 ms P-R-T Axes : 090 058 050 degrees QTc Int : 438 ms Normal sinus rhythm Right bundle branch block Abnormal ECG Confirmed by MADI BRADFORD, GABO ([id number]), art editor ROCKY MANE ([id number]) on 10/29/2022 12:14:04 PM Referred By: BRAVO/HORTENCIA Confirmed By:GABO BARRAZA MD
--- NOTE | 2022-10-28 14:05 | EDS_ITS ---
HPI HPI - URI History of Present Illness Chief Complaint: Dizziness Detail of Chief Complaint: Today on low blood pressure. URI with productive cough. Informant: patient Onset/Context/Timing Onset: Days Context: Gradual Onset Timing: Continuous Current Severity: Mild Maximum Severity: Mild Associated Symptoms Associated Symptoms: Positive for Diarrhea and Productive Cough; Negative for Nausea, Vomiting or Hemoptysis Narrative Narrative: 82-year-old male history of A-fib with an ablation on Xarelto. Prior history of vertigo and COPD. Patient states has been feeling well last several days with a productive cough of phlegm. Denies chest pain. No hemoptysis. He is also had some loose stools and diarrhea. No melena. No vomiting. Subjective fever. Today he was at a restaurant he felt lightheaded like he might pass out. He was brought to the emergency department. No headache. Dizzy says he feels lightheaded not vertiginous. Prior similar symptoms: Yes Recent Illness/Hospitalization: No ROS ROS ED ROS Narrative Cough. Lightheaded. Diarrhea. Review of Systems ROS Unobtainable: Denies due to encephalopathy Constitutional Constitutional ED: Reports fever(s) and subjective; Denies chills Eyes Eyes: Denies blurry vision ENT ENT ED: Denies ear pain, rhinorrhea or sore throat Cardiovascular Cardiovascular: Denies chest pain, palpitations or racing heartbeat Respiratory/Chest Respiratory/Chest: Reports cough Gastrointestinal Gastrointestinal: Reports diarrhea; Denies abdominal pain, constipation, melena, nausea or vomiting Genitourinary Genitourinary ED: Denies dysuria or hematuria Musculoskeletal Musculoskeletal: Denies arthralgias Integumentary Denies abscess Neurologic Neurologic: Denies headache(s) Psychiatric Psychiatric: Denies anxiety Endocrine Endocrinology: Denies cold intolerance Hematologic/Lymphatic Hematologic/Lymphatic: Denies easy bleeding Allergic/Immunologic Allergic/Immunologic ED: Denies mouth swelling or tongue swelling [facility] Medical History Abnormal TSH Back pain Chronic GERD COPD (chronic obstructive pulmonary disease) Essential hypertension Fatigue History of tobacco use Lung disease Orthostatic hypotension KALYAN (obstructive sleep apnea) KALYAN and COPD overlap syndrome Osteoarthritis Paroxysmal atrial flutter Secondary pulmonary arterial hypertension Home Medications sertraline 50 mg tablet 50 mg PO DAILY 01/16/13 [History Last Taken Unknown] diphenhydramine 25 mg-acetaminophen 500 mg tablet (Tylenol PM Extra Strength) 2 tab PO QHS sleep 06/21/16 [History Last Taken Unknown] rivaroxaban 20 mg tablet 20 mg PO DAILY #90 tabs 11/19/21 [Rx Last Taken Unknown] simvastatin 40 mg tablet 40 mg PO QHS #90 tabs 11/19/21 [Rx Last Taken Unknown] metformin 500 mg tablet,extended release 24 hr 500 mg PO QPM 11/24/21 [History Last Taken Unknown] albuterol sulfate 90 mcg/actuation aerosol inhaler 2 inh inhalation Q6H PRN shortness of breath or wheezing #8.5 grams 04/06/22 [Rx Last Taken Unknown] pantoprazole 40 mg tablet,delayed release 40 mg PO DAILY 04/06/22 [History Last Taken Unknown] tiotropium 2.5 mcg-olodaterol 2.5 mcg/actuation mist for inhalation (Stiolto Respimat) 2 inh inhalation DAILY copd #4 grams 04/06/22 [Rx Last Taken Unknown] metoprolol succinate 50 mg tablet,extended release 24 hr 50 mg PO DAILY #90 tabs 04/07/22 [Rx Last Taken Unknown] hydrochlorothiazide 25 mg tablet 25 mg PO DAILY #90 tabs 05/28/22 [Rx Last Taken Unknown] lisinopril 40 mg tablet 40 mg PO DAILY 05/28/22 [History Last Taken Unknown] Allergy/AdvReac Type Severity Reaction Status Date / Time chlorpromazine AdvReac Intermediate Other Verified 10/28/22 13:03 [From Thorazine] promethazine AdvReac Intermediate Other Verified 10/28/22 13:03 hydrocodone bitartrate AdvReac Vomiting Verified 10/28/22 13:03 [From Vicodin] Family History Father Heart disease Surgical History H/O cardiac radiofrequency ablation History of bilateral hip replacements History of cardioversion (12/2020) History of lung surgery Hx of Achilles tendon repair Social History household members: spouse Smoking Status: Former smoker how long ago did patient quit smoking: Quit 30 years prior, smoked 1-1.5 ppd since college until quit. alcohol intake: never substance use type: does not use EXAM Physical Exam Narrative Exam Narrative: -year-old male with initial blood pressure 7756 currently 85-57. He is antonio ating well though. He sitting upright in bed. He does not look septic or toxic. He does look mildly dehydrated. H EENT exam unremarkable. No facial droop. Normal speech. No trauma. Neck nontender. No lymphadenopathy. Lungs clear to auscultation bilaterally. Heart regular rhythm rate about 66 no murmur. Sinus rhythm on the monitor. Abdomen soft nontender. Moves all 4 extremities. Nontender no edema. Neurologically is awake and alert with no focal motor deficits. Const Vital Signs: 10/28/22 13:03 10/28/22 13:10 10/28/22 14:01 Temperature 96.9 F L Temperature Source Temporal Pulse Rate 83 66 62 Respiratory Rate 18 18 18 Blood Pressure 77/56 L 85/57 L 131/70 H Blood Pressure Mean 63 66 90 Pulse Ox 94 94 96 Oxygen Delivery Method Room Air Room Air Room Air 10/28/22 15:37 Temperature Temperature Source Pulse Rate 74 Respiratory Rate 18 Blood Pressure 131/70 H Blood Pressure Mean 90 Pulse Ox 96 Oxygen Delivery Method Room Air Positive well nourished and well developed; Negative for obese, cachectic or contractures General Appearance ED: well developed and NAD; Negative for cachectic, contractures, cyanotic, diaphoretic or pallor Nutritional Appearance: Negative for cachectic or obese HEENT Reports dry mucous membranes; Denies moist mucous membranes normocephalic and atraumatic Face and Sinus: Negative for sinus tenderness Mouth ED: Yes dry mucous membranes Mouth: dry mucous membranes Teeth and Gingiva: Negative for caries Throat: posterior oropharynx normal Eyes PERRL and EOMs intact bilaterally General Eye ED: Negative for pale conjunctiva or scleral icterus Neck no lymphadenopathy, supple, no meningeal signs and no JVD General: Negative for anterior neck swelling or lymphadenopathy Resp normal respiratory effort and clear to auscultation bilaterally Effort and Inspection: Negative for retractions Auscultation: Negative for rales, rhonchi or wheezes Cardio S1 normal heart sound, S2 normal heart sound and no murmurs Rate: regular rate Rhythm: regular rhythm GI non-tender, non-distended and no masses Inspection: Negative for abdominal distention Auscultation: normoactive bowel sounds Palpation: soft; Negative for tender or guarding Back/Spine no CVA tenderness and normal ROM General Back: Negative for CVA tenderness Cervical Spine: Negative for cervical spine tenderness Thoracic Spine / Upper Back: Negative for thoracic spinal tenderness Lumbar Spine / Lower Back: Negative for lumbar spinal tenderness Sacrum: Negative for tenderness Extremity normal to inspection and full ROM General Extremety ED: Negative for cyanosis or tenderness General Extremity: Negative for cyanosis Neuro oriented x3 and CN's II-XII intact bilaterally Sensorium / Orientation: alert, oriented to person, oriented to place and oriented to time; Negative for orientation impaired, lethargic or stuporous Motor Exam: strength 5/5 throughout Psych mental status grossly normal Appearance: Negative for other Attitude: No agitated Mood & Affect: Negative for depressed, anxious or tearful Skin General Skin Exam: Negative for jaundice or pallor Lesions: no lesions Rashes: no rashes Trauma: Negative for abrasion MDM MDM MDM Narrative Medical decision making narrative: 82-year-old male hypotensive with URI symptoms and loose stools. Hypotensive and most likely dehydrated. Screening labs along with chest x-ray with possible pneumonia versus COVID versus influenza versus other etiologies. IV fluids. Office EKG. Patient is doing very well at 4:20 PM. Blood pressure 128/77. He is feeling much better after 1-1/2 L of fluid. We will given the other half a liter prior to discharge. He and I went over his lab test. I do not think he has any signs of a bacterial infection is most likely a viral syndrome with his diarrhea and URI. Also he is on 2 different blood pressure medications lisinopril hydrochlorothiazide. And he said he was working outside on his tractor in the hot sun. I think his hypotension was secondary to dehydration is much improved now. We did go over his abnormal kidney function with a BUN of 26 and creatinine 1.9 and to follow-up and have that reevaluated. The last BUN and creatinine we had was from 2 years ago and was normal at that time. Patient is comfortable with the plan. History & Record Review Discussion w/independent historian: Patient Additional record(s) reviewed:: Prior inpatient record, Prior outpatient record, Prior ED visit and Prior labs Lab Data Attestation: I reviewed the patient's lab results. Lab results narrative: CBC unremarkable. White count of 7. H&H 14 and 43. Platelets 180. Electrolytes 2. BUN and creatinine 26 1.9 consistent with acute kidney injury and possible dehydration. Lactic acid is 0.9. Troponin is normal at 5. Labs: Laboratory Results - last 24 hr 10/28/22 10/28/22 13:16 14:40 WBC 7.6 RBC 4.53 L Hgb 14.2 Hct 43.7 MCV 96.5 H MCH 31.3 MCHC 32.5 RDW Std Deviation 45.5 H RDW Coeff of Mariama 12.9 Plt Count 180 MPV 11.1 Immature Gran % (Auto) 0.500 Neut % (Auto) 72.4 H Lymph % (Auto) 12.5 L Roberts % (Auto) 12.1 H Eos % (Auto) 1.8 Baso % (Auto) 0.7 Absolute Neuts (auto) 5.5 Absolute Lymphs (auto) 0.95 Nucleated RBC % 0 Sodium 137 Potassium 4.2 Chloride 106 Carbon Dioxide 29.0 Anion Gap 2 L BUN 26 H Creatinine 1.90 H Est GFR (MDRD) Af Amer 44 L Est GFR (MDRD) Non-Af 36 L BUN/Creatinine Ratio 13.7 Glucose 108 H Lactic Acid 0.9 Calcium 9.3 Troponin I High Sens 5 Radiography Chest X-Ray - ED: 2 View, Read by ED Physician, Read by Radiologist, Heart, Lungs, Mediastinum, Bony Structures, No Acute Disease and Chronic Changes Diagnostic Testing: Clinical Impression(s) from Imaging Studies Chest X-Ray 10/28/22 14:50 IMPRESSION: No acute abnormality is seen. Electronically Signed: Mathew Gamboa MD at 15:12 EDT , Chest x-ray, 2 views, AP and lateral, and short of both myself and radiologist shows no acute abnormality. Normal cardiac silhouette. Normal lung webb. No infiltrates. Rhythm Strip Rhythm Strip: Sinus Rhythm Rate: 66 Ectopy: None EKG Initial EKG: Attestation: I personally reviewed and interpreted this EKG as follows: Interpretation: Sinus Rhythm and No Acute Injury Pattern Comments: Normal sinus rhythm rate of 66 no acute signs of PA or ischemia. Right bundle branch block. Discharge Plan Triage Chief Complaint: Dizziness Other Complaint: Palpitations ED Provider: Mike Duvall Dx/Rx/DC Orders Clinical Impression: Acute hypotension, Acute dehydration, Dizziness, Diarrhea, Viral syndrome, History of hypertension, History of atrial fibrillation Instructions: ED Dehydration (Adult), ED Viral Syndrome (Adult) Prescriptions: No Action simvastatin 40 mg tablet 40 mg PO QHS Qty: 90 3RF rivaroxaban 20 mg tablet 20 mg PO DAILY Qty: 90 3RF Patient Comments: BLOOD THINNER metformin 500 mg tablet extended release 24 hr 500 mg PO QPM pantoprazole 40 mg tablet,delayed release (DR/EC) 40 mg PO DAILY Stiolto Respimat 2.5-2.5 mcg/actuation mist 2 inh inhalation DAILY Qty: 4 12RF albuterol sulfate 90 mcg/actuation HFA aerosol inhaler 2 inh inhalation Q6H PRN (Reason: shortness of breath or wheezing) Qty: 8.5 0RF lisinopril 40 mg tablet 40 mg PO DAILY hydrochlorothiazide 25 mg tablet 25 mg PO DAILY Qty: 90 3RF sertraline 50 MG tablet 50 mg PO DAILY Patient Comments: Anti-depressent diphenhydramine-acetaminophen [Tylenol PM Extra Strength] 1 EACH tablet 2 tab PO QHS metoprolol succinate 50 mg tablet extended release 24 hr 50 mg PO DAILY Qty: 90 3RF Primary Care Provider: Sarah Sullivan Referrals: Sarah Sullivan, [facility] [employer] [facility] [Primary Care Provider] - 1 Week Activity Restrictions/Additional Instructions: You are dehydrated. Plenty of fluids and rest. Increase your diet slowly as tolerated. The dehydration along with the diarrhea along with the working outside along with your blood pressure meds had your blood pressure low which caused her dizziness. Your blood pressure medications unless your blood pressure is running higher than 130/70. As your kidney function was abnormal with a creatinine of 1.9 today. Follow-up with your primary care provider to have that rechecked in 1 to 2 weeks. Disposition Disposition: Home, Self Care
[2022-10-28] MEDS: 0.9% Normal Saline 1,000 ML 1000 ML IV ×2 (14:21→17:31)
[2022-10-28 14:33] LABS: Absolute Lymphocyte Count 0.95 X10^3/uL (0.83-4.51); Absolute Neutrophil Count 5.5 X10^3/uL (2.0-7.7); Basophil# 0.05 X10^3/uL; Basophil% 0.7 % (0-1); Eosinophil# 0.14 X10^3/uL; Eosinophils% 1.8 % (0-5); Hematocrit 43.7 % (40-54); Hemoglobin 14.2 g/dL (13.0-16.5); Lymphocyte # 0.95 X10^3/ul (0.83-4.51); Lymphocyte % 12.5 % (19-41); Mean Corp Hgb Conc 32.5 g/dL (32-36); Mean Corpuscular Hgb 31.3 pg (27.0-32.0); Mean Corpuscular Volume 96.5 fL (80-94); Mean Platelet Vol. 11.1 fl (6.2-12.0); Monocyte# 0.92 X10^3/uL; Monocyte% 12.1 % (0-10); NRBC Flagged by Analyzer 0 % (0-5); Neutrophil # 5.49 X10^3/uL (2.7-7.7); Neutrophil % 72.4 % (47-70); Platelet Count 180 K/mm3 (150-450); RBC Distribution Width CV 12.9 % (11.6-14.6); RBC Distribution Width SD 45.5 fl (35.1-43.9); Red Blood Count 4.53 M/mm3 (4.6-6.2); White Blood Count 7.6 K/mm3 (4.4-11.0)
--- NOTE | 2022-10-28 14:50 | RAD_ITS ---
STUDY: X-RAY CHEST REASON FOR EXAM: Male, 82 years old. Cough. TECHNIQUE: PA and lateral views of the chest. COMPARISON: Comparison is made with prior study dated January 07, 2021. FINDINGS: EKG electrodes are seen. The lungs are clear and expanded. There is no demonstrated pleural abnormality. Normal size heart. Normal mediastinum and arti. Normal visualized pulmonary arteries. There is atherosclerotic calcification of the aortic arch with tortuosity. Normal visualized thoracic spine. Normal visualized ribs, clavicles, and shoulders. There is no demonstrated abnormality of the visualized soft tissue structures of the upper abdomen. RAD/Chest PA and Lateral IMPRESSION: No acute abnormality is seen. Electronically Signed: Mathew Gamboa MD at 15:12 EDT ,
[2022-10-28 14:52] LABS: Anion Gap 2 (5-15); BUN 26 mg/dL (7-18); BUN/Creat Ratio 13.7 RATIO (10-20); Calcium,Total 9.3 mg/dL (8.5-10.1); Chloride 106 mmol/L (98-107); EST Glomerular Filtration Rate 36 mL/min (>60); Est Glom Filt Rate - Afr Amer 44 mL/min (>60); Glucose 108 mg/dL (74-106); Potassium 4.2 mmol/L (3.5-5.1); Sodium Level 137 mmol/L (136-145); Troponin-I HS 5 pg/mL (3.0-78.0)
[2022-10-28 15:19] LABS: Lactic Acid 0.9 mmol/L (0.4-1.9)
[2022-10-28 15:37] VITALS: BP 131/70; PULSE 74; RESP 18; O2SAT 96
[2022-10-28 17:32] VITALS: BP 127/66; PULSE 77; RESP 15; O2SAT 96
[2022-10-28 18:40] VITALS: BP 116/62; PULSE 71; RESP 15; O2SAT 97
== END 2022-10-28 18:44 | disposition home or self-care (01) ==
PROVIDERS: Emergency Provider Emergency Medicine; PCP Nurse Practitioner Family; Visit Provider Emergency Medicine
DX: E86.0 Dehydration (principal); J44.9 Chronic obstructive pulmonary disease, unspecified; I48.0 Paroxysmal atrial fibrillation; I95.1 Orthostatic hypotension; B34.9 Viral infection, unspecified; I10 Essential (primary) hypertension; Z79.01 Long term (current) use of anticoagulants; Z79.899 Other long term (current) drug therapy; Z87.891 Personal history of nicotine dependence
CPT/HCPCS: 71046; 80048; 83605; 84484; 85025; 87428; 93005; 96360; 96361; 99284; J7030; A4216

== ENCOUNTER → 2023-03-16 | Outpatient (CLI) | payer MEDICARE, SELFPAY ==
--- NOTE | 2023-03-16 16:18 | RAD_ITS ---
STUDY: X-RAY CHEST REASON FOR EXAM: Male, 82 years old. HEMOPTYSIS TECHNIQUE: Frontal and lateral views of the chest. COMPARISON: 10/28/2022. FINDINGS: The lungs are clear and expanded. There is no demonstrated pleural abnormality. Normal size heart. Normal mediastinum and arti. Normal visualized pulmonary arteries. Normal visualized aortic arch and descending thoracic aorta. Normal visualized thoracic spine. Normal visualized ribs, clavicles, and shoulders. There is no demonstrated abnormality of the visualized soft tissue structures of the upper abdomen. RAD/Chest PA and Lateral IMPRESSION: Normal x-ray examination of the chest. Electronically Signed: Ronald Bautista MD at 16:47 EST ,
== END | disposition home or self-care (01) ==
PROVIDERS: PCP Nurse Practitioner Family; Referring Provider Nurse Practitioner Family; Visit Provider Nurse Practitioner Family
DX: R04.2 Hemoptysis (principal)
CPT/HCPCS: 71046

== ENCOUNTER → 2023-07-27 | Outpatient (CLI) | payer MEDICARE, SELFPAY ==
[2023-07-27 14:05] LABS: AST(SGOT) 21 U/L (15-37); Alanine Aminotransfer ALT/SGPT 35 U/L (16-61); Albumin, Serum 3.9 g/dL (3.2-5.0); Alkaline Phosphatase 56 U/L (45-117); Bilirubin, Direct 0.12 mg/dL (0.00-0.30); Cholesterol 156 mg/dL (200); Globulin 3.8 g/dL (2.2-4.2); High Density Lipoprotein 41 mg/dL; Protein, Total 7.7 g/dL (6.4-8.2); Triglycerides 211 mg/dL; Very Low Density Lipoprotein 42 mg/dL (5-40)
== END | disposition home or self-care (01) ==
LOC: LAB 11:16
PROVIDERS: PCP Nurse Practitioner Family; Referring Provider Internal Medicine Cardiovascular Disease; Visit Provider Internal Medicine Cardiovascular Disease
DX: E78.9 Disorder of lipoprotein metabolism, unspecified (principal)
CPT/HCPCS: 36415; 80061; 80076

== ENCOUNTER → 2024-06-19 | Outpatient (CLI) | payer MEDICARE, SELFPAY ==
--- NOTE | 2024-06-19 16:08 | RAD_ITS ---
PROCEDURE: HIP, UNI W/ PELVIS 2-3 VIEWS 06/19/2024 REASON FOR EXAM: HIP PAIN TECHNIQUE: 3 views of the left hip. FINDINGS: Bones: No acute fracture. Joints: Total hip replacement in satisfactory alignment. Soft tissues: Soft tissues are unremarkable. Other: RAD/HIP, UNI W/ Pelvis 2-3 Views IMPRESSION: TOTAL HIP REPLACEMENT Reading Location: [id number]
== END | disposition home or self-care (01) ==
LOC: MTRAD 16:07
PROVIDERS: PCP Nurse Practitioner Family; Referring Provider Nurse Practitioner Family; Visit Provider Nurse Practitioner Family
DX: M25.552 Pain in left hip (principal)
CPT/HCPCS: 73502

== ENCOUNTER 2024-07-17 16:30 | Outpatient (RCR) | payer MEDICARE, SELFPAY ==
--- NOTE | 2024-06-27 15:45 | HP.PTEVAL_ITS ---
Patient's Visit Information Visit Information Visit Information: IRENE AMOS is a 83 year old M referred to Physical Therapy by MIESHA Monroe with a diagnosis of L hip pain. Date of Evaluation: 06/27/24 Physical Therapist: Costa Holloway, PT, ATC Visit Plan Frequency: 2x /Week Duration: 2 Weeks Plan: 2 x's per wweek x 2 weeks. Insturct pt on HEP of SKTC/DKTC, core strengthening, postural edu, and HEP Subjective Subjective: Pt reports he has had B hip pain intermittently for a couple months. Pt reports his pain is intermittent in nature. Pt notes his pain will switch sides on different days. Pt notes driving and walking for long periods of time tend to increase his pain. Pt reports he has had B KEVIN in the past, and notes he had xrays which revealed that both of his KEVIN's look good. 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 Pt reports he does experience L LE radiculopathy that extends to the knee region. Pt reports he has not had any recent diagnostic testing performed on his L/S. Pt reports he fell 30 years ago from a tree on frozen ground, which ultimately resulted in several pelvic fractures. 1/10 pain while sitting here at rest, 6/10 pain at worst (which is when he sits down to rest) Pain LBP/L hip pain: Pain Intensity (Out of 10): 1 Pain Intensity Range: 6 Objective Objective: Neuro: B LE sensation is WNL to light touch MMT: B LE's are grossly 5/5 and equal throughout ROM: L/S is moderaltely limited with extension, and B SB. Flex is WNL Repeated movements: SKTC/DKTC 10 sec x 3 ea decreased pain Gait: Pt is able to ambulate 340 feet until L hip pain increases to 4/10 and pt requests to rest Balance/Special Test Scores Lower Extremity Functional Score: 40 Goals Goal 1:: I with HEP 3-4 visits Goal Time Frame: 2-4 Weeks Goal 2:: Decrease LBP x 50% to aid with ambulation Goal Time Frame: 2-4 Weeks Goal 3:: Pt will ambulate greater that 700 feet without increased pain to aid with community ambulation Goal Time Frame: 2-4 Weeks Rehabilitation Potential Physical Therapy Diagnosis: Pt has L hip pain, L LE radiculopathy, and limited L/S extension ROM secondary to degenerative changes in the L/S Rehabilitation Potential: Good Anticipated Interventions Patient/Client Instruction: Educate patient on: Condition and Plan of Care For the Purpose of:: To improve self management Therapeutic Exercise to Include: Strength training, Endurance training, Body mechanics, Postural training and Dynamic Lumbar Stabilization For the Purpose of:: To decrease pain, To improve muscle performance and motor function and To increase tolerance to activity/condition/position Text: Thank you for the opportunity to evaluate your patient. For Medicare and Medicare HMO plans, please review the plan of care and approve it. It will need to be FAXED BACK to us at [phone] for Medicare purposes. For Medicare only, by signing this I certify the plan of care. Please let me know if there are questions or concerns regarding this plan of care. Physician Signature: Date:
--- NOTE | 2024-10-16 08:54 | HP.PT.NRP ---
Patient Information Patient Information: IRENE AMOS was seen in my office for initial evaluation on 06/27/24. The following Plan of Care was established for this patient: POC Established Initial Frequency: 2x /Week Initial Duration: 2 Weeks Anticipated Interventions Patient/Client Instruction: Educate patient on: Condition and Plan of Care For the Purpose of:: To improve self management Therapeutic Exercise to Include: Strength training, Endurance training, Body mechanics, Postural training and Dynamic Lumbar Stabilization For the Purpose of:: To decrease pain, To improve muscle performance and motor function and To increase tolerance to activity/condition/position Last Seen Last Seen: This patient was last seen in our office . Pertinent comments regarding their Physical therapy will appear below: Pt has not returned in greater than 30 days and is discontinued at this time. At this point I will be discontinuing this patient from physical therapy. I would be happy to see this patient again in the future if found appropriate by the physician. Thank you! Costa Holloway, PT, ATC Balance/Gait/Functional tests Balance/Special Test Scores Lower Extremity Functional Score: 40
== END 2024-07-17 19:00 | disposition home or self-care (01) ==
LOC: PT 16:30
PROVIDERS: PCP Nurse Practitioner Family; Referring Provider Nurse Practitioner Family; Visit Provider Nurse Practitioner Family
DX: M16.9 Osteoarthritis of hip, unspecified (principal)
CPT/HCPCS: 97110; 97161

== ENCOUNTER → 2025-01-03 | Outpatient (CLI) | payer MEDICARE, SELFPAY ==
[2025-01-03 17:28] LABS: AST(SGOT) 21 U/L (<=37); Alanine Aminotransfer ALT/SGPT 20 U/L (<=46); Albumin, Serum 4.4 g/dL (3.4-4.8); Alkaline Phosphatase 60 U/L (40-129); Anion Gap 11 (5-15); BUN 30 mg/dL (4-19); BUN/Creat Ratio 18.4 RATIO (10-20); Bilirubin, Direct 0.17 mg/dL (0.00-0.30); Calcium,Total 9.7 mg/dL (7.6-11.0); Carbon Dioxide 26.1 mmol/L (21.0-32.0); Chloride 102 mmol/L (98-108); Cholesterol 147 mg/dL (<=200); Globulin 3.5 g/dL (2.2-4.2); Glucose 121 mg/dL (70-99); Low Density Lipoprotein Calc. 72 mg/dL; Potassium 4.5 mmol/L (3.3-5.1); Triglycerides 214 mg/dL; Very Low Density Lipoprotein 43 mg/dL (5-40); cholesterol:hdl ratio screen 3.71
== END | disposition home or self-care (01) ==
LOC: LAB 16:28
PROVIDERS: PCP Nurse Practitioner Family; Referring Provider Internal Medicine Cardiovascular Disease; Visit Provider Internal Medicine Cardiovascular Disease
DX: E78.00 Pure hypercholesterolemia, unspecified (principal); I10 Essential (primary) hypertension
CPT/HCPCS: 36415; 80048; 80061; 80076

== ENCOUNTER 2025-01-08 08:13 | Day surgery (SDC) | payer MEDICARE, SELFPAY ==
[2025-01-07 09:41] VITALS: BMI 29.6
--- NOTE | 2025-01-08 09:12 | PCM.OP.PRO2 ---
Bedside Procedural Bedside Procedure Information Date of Procedure: 01/08/25 Pre-Procedure Diagnosis: Atrial flutter Post-Procedure Diagnosis: Same Procedure Performed:: DC cardioversion semaphore operator: No Procedure Time Out: : Procedure Start Time: Procedure Stop Time: Special Medications: Intravenous propofol 40 mg Description of procedure: Patient was brought to cardiac catheterization lab in the postabsorptive nonsedated state. EKG was performed which demonstrated atrial flutter with a rapid ventricular response rate. Informed consent was obtained by myself. Anterior-posterior pads were applied. In the presence of outside energy sales representatives from the respiratory department 40 mg of intravenous propofol was administered and then 200 J of synchronized biphasic DC cardioversion energy were applied with prompt reversal to sinus rhythm. Patient tolerated the procedure well. Procedure findings: Successful DC cardioversion from atrial fibrillation flutter to sinus rhythm.
== END 2025-01-08 10:15 | disposition home or self-care (01) ==
PROVIDERS: PCP Nurse Practitioner Family; Referring Provider Internal Medicine Cardiovascular Disease; Visit Provider Internal Medicine Cardiovascular Disease
DX: I48.0 Paroxysmal atrial fibrillation (principal); J44.9 Chronic obstructive pulmonary disease, unspecified; Z79.899 Other long term (current) drug therapy; Z79.84 Long term (current) use of oral hypoglycemic drugs; Z79.01 Long term (current) use of anticoagulants; K21.9 Gastro-esophageal reflux disease without esophagitis; Z87.891 Personal history of nicotine dependence; E66.9 Obesity, unspecified
CPT/HCPCS: 92960; 93005

== ENCOUNTER → 2025-01-28 | Outpatient (CLI) | payer MEDICARE, SELFPAY ==
--- NOTE | 2025-01-28 12:48 | ECHOD_ITS ---
Reason For Study Reason For Study: AFIB Procedure This was a 2D Doppler, Color Flow transthoracic echocardiogram. Exam performed in department. Left Ventricle Normal LV size. Left ventricular systolic function is normal. The left ventricular ejection fraction is 60 %. No regional wall motion abnormalities noted. Right Ventricle Normal RV size. Normal systolic function. Atria The left atrium is mildly enlarged. Normal right atrium. Mitral Valve Normal mitral valve. Tricuspid Valve Normal tricuspid valve. Mild (1+) tricuspid valve insufficiency. Pulmonary artery systolic pressure is 32 mmHg. Aortic Valve Trisinus/trileaflet aortic valve. Pulmonic Valve Normal pulmonic valve. Great Vessels Normal aortic root. The pulmonary artery is normal size. Inferior vena cava collapse with sniff. Pericardium/Pleural No pericardial effusion. MMode/2D Measurements & Calculations LVIDd: 4.9 cm IVSd: 1.1 cm Ao root diam: 3.5 cm LVIDs: 2.4 cm LVPWd: 1.0 cm FS: 50.6 % LAV(MOD-bp): 51.9 ml LVAd ap4: 21.2 cm2 SV(MOD-sp4): 31.3 ml LAV(MOD-bp) Indexed: 26.1 ml/m2 LVLd ap4: 7.5 cm SI(MOD-sp4): 15.7 ml/m2 LAV(MOD-sp2): 40.0 ml EDV(MOD-sp4): 51.5 ml LAV(MOD-sp4): 59.1 ml EDV(sp4-el): 51.0 ml LVAs ap4: 11.9 cm2 LVLs ap4: 6.0 cm ESV(MOD-sp4): 20.2 ml ESV(sp4-el): 20.1 ml EF(MOD-sp4): 60.8 % EF(sp4-el): 60.7 % SV(sp4-el): 30.9 ml LA A4 area: 21.4 cm2 LA dimension(2D): 4.9 cm RA A4 area: 11.0 cm2 Time Measurements MV dec time: 0.21 sec Doppler Measurements & Calculations MV E max paul: 74.4 cm/sec Lat Peak E' Paul: 7.0 cm/sec Med Peak E' Paul: 6.0 cm/sec MV A max paul: 44.9 cm/sec E/E' lat: 10.7 E/E' med: 12.4 MV E/A: 1.7 MV V2 max: 76.4 cm/sec Ao V2 max: 104.1 cm/sec MV max P.3 mmHg MV dec slope: 349.1 cm/sec2 Ao max P.3 mmHg MV V2 mean: 45.8 cm/sec Ao V2 mean: 72.4 cm/sec MV mean P.98 mmHg Ao mean P.4 mmHg MV V2 VTI: 24.1 cm Ao V2 VTI: 21.3 cm AV (velocity ratio): 0.82 LV V1 max: 93.8 cm/sec PA V2 max: 69.9 cm/sec TR max paul: 268.2 cm/sec LV V1 max P.5 mmHg PA V2 mean: 53.1 cm/sec TR max P.8 mmHg LV V1 mean P.1 mmHg LV V1 mean: 68.1 cm/sec LV V1 VTI: 17.5 cm ECHO/Echo Complete Interpretation Summary Normal LV size. Left ventricular systolic function is normal. The left ventricular ejection fraction is 60 %. Mild (1+) tricuspid valve insufficiency. Pulmonary artery systolic pressure is 32 mmHg. Ordering Physician: Mejia Salinas Referring Physician: Mejia Salinas Performed By: Patt Norris RCS
== END | disposition home or self-care (01) ==
LOC: CVS 12:42
PROVIDERS: PCP Nurse Practitioner Family; Referring Provider Internal Medicine Cardiovascular Disease; Visit Provider Internal Medicine Cardiovascular Disease
DX: I48.92 Unspecified atrial flutter (principal); R94.31 Abnormal electrocardiogram [ECG] [EKG]
CPT/HCPCS: 93306

== ENCOUNTER 2025-02-14 13:04 | Emergency (ER) | payer MEDICARE, SELFPAY ==
[2025-02-14 13:04] VITALS: BP 153/87; PULSE 60; RESP 16; TEMP 35.8; O2SAT 99; BMI 29.4
--- NOTE | 2025-02-14 13:37 | EX.ED.DYSGE1 ---
HPI History of Present Illness Chief Complaint: Med Refill Detail of Chief Complaint: Pain swelling second toe, history of gout Informant: patient Onset/Context/Timing Onset: Yesterday Context: Sudden Onset Timing: Continuous Quality: Pain Location: Second toe Current Severity: Moderate Maximum Severity: Severe Worsened by: Walking, movement and palpation of second toe Relieved by: Nothing Associated Symptoms Associated Symptoms: None Narrative Narrative: Patient presents with second left toe pain and swelling. He had gout in this toe several months ago. He was placed on colchicine. He was informed that we do not use colchicine as a first-line treatment any longer. He has no history of diabetes. He denies polyuria or polydipsia. He denies fever, chills night sweats. There is no history of trauma. He does have history of gout, obstructive sleep apnea, COPD, paroxysmal atrial fibrillation. Prior similar symptoms: Yes Recent Illness/Hospitalization: No [facility] Medical History Abnormal EKG Orthostatic hypotension KALYAN (obstructive sleep apnea) Chronic GERD KALYAN and COPD overlap syndrome Essential hypertension Secondary pulmonary arterial hypertension Paroxysmal atrial flutter Abnormal TSH Back pain Fatigue Lung disease History of tobacco use COPD (chronic obstructive pulmonary disease) Osteoarthritis Home Medications ?Medication ?Instructions ?Recorded ?Last Taken ?Type sertraline 50 mg tablet 50 mg PO DAILY 01/16/13 01/08/25 History diphenhydramine 25 2 tab PO QHS sleep 06/21/16 Unknown History mg-acetaminophen 500 mg tablet (Tylenol PM Extra Strength) metformin 500 mg tablet,extended 500 mg PO QPM 11/24/21 Unknown History release 24 hr albuterol sulfate 90 mcg/actuation 2 inh inhalation Q6H PRN shortness 04/06/22 Unknown Rx aerosol inhaler of breath or wheezing #8.5 grams pantoprazole 40 mg tablet,delayed 40 mg PO DAILY 04/06/22 Unknown History release metoprolol succinate 50 mg 50 mg PO DAILY #90 tabs 04/07/22 Unknown Rx tablet,extended release 24 hr lisinopril 10 mg tablet 10 mg PO DAILY 09/20/23 01/08/25 History umeclidinium 62.5 mcg-vilanterol 1 ea inhalation QDAY #60 ea 09/20/23 Unknown Rx 25 mcg/actuation powdr for inhalation (Anoro Ellipta) rivaroxaban 20 mg tablet (Xarelto) See Rx Instructions .Route 03/30/24 01/08/25 Rx .COMPLEX #90 tabs hydrochlorothiazide 25 mg tablet 25 mg PO DAILY #90 tabs 05/16/24 Unknown Rx simvastatin 40 mg tablet 40 mg PO QHS #90 tabs 11/05/24 Unknown Rx hydrocodone-acetaminophen 5-325mg 1 tab PO Q6H PRN PRN Pain 2 days 02/14/25 Unknown Rx 5mg-325mg #6 TABLETS prednisone 20 mg tablet 60 mg (3 x 20 mg) PO DAILY #15 02/14/25 Unknown Rx TABLETS Allergy/AdvReac Type Severity Reaction Status Date / Time chlorpromazine (From AdvReac Intermediate Other Verified 02/14/25 13:06 Thorazine) promethazine AdvReac Intermediate Other Verified 02/14/25 13:06 hydrocodone bitartrate (From AdvReac Vomiting Verified 02/14/25 13:06 Vicodin) Family History Father Heart disease Surgical History History of cardioversion (01/08/25) H/O cardiac radiofrequency ablation History of lung surgery Hx of Achilles tendon repair History of bilateral hip replacements Social History household members: spouse Smoking Status: Former smoker how long ago did patient quit smoking: Quit 30 years prior, smoked 1-1.5 ppd since college until quit. alcohol intake: never substance use type: does not use ROS ROS ED Constitutional Constitutional ED: Denies chills, fever(s), subjective, sweats or weight loss Gastrointestinal Gastrointestinal: Denies nausea or vomiting Genitourinary Genitourinary ED: Denies dysuria or urinary frequency Musculoskeletal Musculoskeletal: Reports other Details: Pain second right toe Integumentary Reports other Details: Redness second right toe Endocrine Endocrinology: Denies polydipsia or polyuria EXAM Physical Exam Const Vital Signs: 02/14/25 13:04 Temperature 96.4 F L Temperature Source Temporal Pulse Rate 60 Respiratory Rate 16 Blood Pressure 153/87 H Blood Pressure Mean 109 Pulse Ox 99 Oxygen Delivery Method Room Air Positive well nourished and well developed General Appearance ED: well developed and NAD HEENT Reports moist mucous membranes Eyes PERRL and EOMs intact bilaterally Neck no lymphadenopathy, supple and no JVD Resp normal respiratory effort Cardio regular rate and regular rhythm Extremity Negative for normal to inspection Extremity Narrative: Swelling painful red second toe. There is no induration. There is no lymphangitis. There is no popliteal lymphadenopathy. DP pulses palpable. There is no discoloration of the nail or subungual hematoma noted. Neuro oriented x3, CN's II-XII intact bilaterally and no sensory deficits noted Sensorium / Orientation: alert Psych mental status grossly normal Skin no rashes or lesions noted and skin turgor normal Skin Narrative: Erythema right second toe MDM MDM MDM Narrative Medical decision making narrative: Patient presents with atraumatic right second toe. Differential diagnosis is crystal induced versus pyogenic arthritis. With prior history of gout in that toe suspect this is gout versus pseudogout since he did not have a tap and have the fluid analyzed. He was treated with prednisone. History & Record Review Additional record(s) reviewed:: Prior outpatient record (Diagnosed with gout.) Treatment and Re-Evaluation :: Patient received a dose of prednisone in department. States he drove himself a 24-hour supply of [place] was sent to his pharmacy as well as a prescription for prednisone. Discharge Plan Triage Chief Complaint: Med Refill ED Provider: Jarrod Rico Dx/Rx/DC Orders Clinical Impression: Acute gout, Paroxysmal atrial flutter, Secondary pulmonary arterial hypertension, Essential hypertension, Dyslipidemia Instructions: ED Gout, ED Gout Diet Prescriptions: New hydrocodone-acetaminophen 5-325 mg tablet 1 tab PO Q6H PRN PRN (Reason: Pain) 2 Days Qty: 6 0RF prednisone 20 mg tablet 60 mg PO DAILY Qty: 15 2RF No Action metformin 500 mg tablet extended release 24 hr 500 mg PO QPM pantoprazole 40 mg tablet,delayed release (DR/EC) 40 mg PO DAILY albuterol sulfate 90 mcg/actuation HFA aerosol inhaler 2 inh inhalation Q6H PRN (Reason: shortness of breath or wheezing) Qty: 8.5 0RF lisinopril 10 mg tablet 10 mg PO DAILY Anoro Ellipta 62.5-25 mcg/actuation blister with device 1 ea inhalation QDAY Qty: 60 11RF sertraline 50 MG tablet 50 mg PO DAILY Patient Comments: Anti-depressent diphenhydramine-acetaminophen [Tylenol PM Extra Strength] 1 EACH tablet 2 tab PO QHS metoprolol succinate 50 mg tablet extended release 24 hr 50 mg PO DAILY Qty: 90 3RF Xarelto 20 mg tablet See Rx Instructions .ROUTE .COMPLEX Qty: 90 3RF Dose Instruction: TAKE 1 TABLET DAILY Rx Instructions: TAKE 1 TABLET DAILY hydrochlorothiazide 25 mg tablet 25 mg PO DAILY Qty: 90 3RF simvastatin 40 mg tablet 40 mg PO QHS Qty: 90 3RF Primary Care Provider: Sarah Sullivan Referrals: Sarah Sullivan, LAURIE-C [Primary Care Provider, Internal Medicine] - 3-5 Days if not improving Print Language: Greenlandic Disposition Disposition: Home, Self Care
== END 2025-02-14 14:23 | disposition home or self-care (01) ==
PROVIDERS: Emergency Provider Emergency Medicine; PCP Nurse Practitioner Family; Visit Provider Emergency Medicine
DX: M10.9 Gout, unspecified (principal); I27.21 Secondary pulmonary arterial hypertension; J44.9 Chronic obstructive pulmonary disease, unspecified; I48.0 Paroxysmal atrial fibrillation; E78.5 Hyperlipidemia, unspecified; I10 Essential (primary) hypertension; Z76.0 Encounter for issue of repeat prescription; K21.9 Gastro-esophageal reflux disease without esophagitis; Z87.891 Personal history of nicotine dependence
CPT/HCPCS: 99282